=== PATIENT | male | born 1950 | race American Indian/Alaskan Native ===

== ENCOUNTER 2018-10-08 14:31 | Emergency (ER) | payer OTHER ==
[2018-10-08 14:35] VITALS: BMI 23.6
[2018-10-08] MEDS ORDERED: Sodium Chloride 0.9% 1,000 ML IV ONE (14:53)
[2018-10-08] MEDS ORDERED: Sodium Chloride 0.9% 1,000 ML ONE (15:00)
--- NOTE | 2018-10-08 15:03 | C.PDOC ---
History Of Present Illness 68 year old male presents to the ED complaining of watery diarrhea and unintentional weight loss for 2 months. Reports it might be because of decreased PO intake because he noted a decreased in appetite. Also notes occasional "gassy abdominal pain". Denies current abdominal pain. Also denies any chest pain, nausea, vomiting, shortness of breath, dysuria or hematuria. Denies any past medical history. Reports he has not seen a doctor in 40 years. Time Seen by Provider: 10/08/18 14:45 Chief Complaint (Nursing): GI Problem History Per: Patient History/Exam Limitations: no limitations Onset/Duration Of Symptoms: Days Current Symptoms Are (Timing): Still Present Past Medical History Reviewed: Historical Data, Nursing Documentation, Vital Signs Vital Signs: Last Vital Signs Temp 98.8 F 10/08/18 14:35 Pulse 122 H 10/08/18 14:35 Resp 20 10/08/18 14:35 BP 172/95 H 10/08/18 14:35 Pulse Ox 100 10/08/18 14:35 Primary Care Provider: FAMILY PROVIDER,NO - Medical History PMH: No Chronic Diseases Surgical History: No Surg Hx Family History: States: No Known Family Hx - Social History Hx Alcohol Use: No Hx Substance Use: No - Immunization History Hx Tetanus Toxoid Vaccination: No Hx Influenza Vaccination: No Hx Pneumococcal Vaccination: No Review Of Systems Constitutional: Positive for: Weight loss. Negative for: Fever, Chills Cardiovascular: Negative for: Chest Pain Respiratory: Negative for: Shortness of Breath Gastrointestinal: Positive for: Abdominal Pain, Diarrhea. Negative for: Nausea, Vomiting Genitourinary: Negative for: Dysuria, Hematuria Physical Exam - Physical Exam Appears: Non-toxic, No Acute Distress, Other (looks underweight ) Skin: Warm, Dry, No Rash Head: Normacephalic Eye(s): bilateral: PERRL, EOMI Oral Mucosa: Moist Neck: Supple Chest: Symmetrical Cardiovascular: Rhythm Regular, Other (tachycardic ) Respiratory: No Rales, No Rhonchi, No Wheezing, Other (CTA B/L) Gastrointestinal/Abdominal: Soft, No Tenderness Neurological/Psych: Oriented x3, Normal Speech Gait: Steady ED Course And Treatment - Laboratory Results Result Diagrams: 10/08/18 15:25 10/08/18 15:25 O2 Sat by Pulse Oximetry: 100 (RA) Pulse Ox Interpretation: Normal - CT Scan/US CT ABD/PELVIS Other Rad Studies (CT/US): Read By Radiologist, Radiology Report Reviewed CT/US Interpretation: Name:CHELSEA GRIFFIN Exam Date:October 08, 2018 5:22:33 PM EDT. Modality Type:CT. Description:CT - ABDOMEN AND PELVIS WITH CORONAL AND SAGITTAL MPRS. Gender:M Laterality:Not applicable. :49 Referring Physician:MISBAH CARLOS MD. EXAM: CT Abdomen and Pelvis with IV contrast. CLINICAL HISTORY: Abd pain, weight loss, diarrhea and r/o malignancy. TECHNIQUE: Axial computed tomography images of the abdomen and pelvis with oral and intravenous contrast. 0.00 mGy-cm. CONTRA ST: With; OMNI 240 & 100MLS VISI 320. COMPARISON: None provided. FINDINGS: LUNG BASES: The lung bases appear clear. No pleural effusions are seen. LIVER: Several hypodense hepatic lesions are present in the right lobe, the largest measures 0.8 cm, may represent small cysts versus hemangiomas. GALLBLADDER AND BILE DUCTS: The gallbladder appears within normal limits. No radioopaque galls tones are seen. No biliary ductal dilatation is evident. PANCREAS: Unremarkable. SPLEEN: Unremarkable. ADRENAL GLANDS: Unremarkable. KIDNEYS, URETERS, AND BLADDER: There is an apparent invasion of the mass into urinary bladder with colovesicular fistula noted. STOMACH AND BOWEL: 11 x 8 x 6 cm complex mass is noted in the sigmoid colon compatible with malignancy, it demonstrates solid and cystic/necrotic elements. APPENDIX: No evidence of acute appendicitis on CT examination. PERITONEUM: No free fluid. No free air. LYMPH NODES: No lymphadenopathy is evident. REPRODUCTIVE: Unremarkable as visualized. VASCULATURE: No evidence of abdominal aortic aneurysm. BONES: No aggressive appearing osseous lesion. No acute osseous pathology evident. IMPRESSION: 1. Several hypodense hepatic lesions are present in the right lobe, the largest measures 0.8 cm, may represent small cysts versus hemangiomas. 2. 11 x 8 x 6 cm complex mass is noted in the sigmoid colon compatible with malignancy, it demonstrates solid and cystic/necrotic elements. 3. There is an apparent invasion of the mass into urinary bladder with colovesicular fistula noted. . Electronically signed on October 08, 2018 6:53:51 PM EDT by: Tato Gilliland M.D., M.B.A., Certified By [employer]. Fellowship Trained MRI and CT Specialist. Progress Note: CT abd/pel, EKG, and CXR ordered. Patient treated with IV fluids. Blood and urine collected and sent to the lab for analysis. Against Medical Advice - AMA Patient Left Against Medical Advice: The patient declines admission to the hospital and wishes to leave the Emergency Department. This action is against my medical advice. This decision was made with informed refusal. The patient was told that admission to the hospital is necessary. Explanation of the reasons why were discussed. The risks of leaving were explained to the patient and include, but are not limited to, worsening of known or currently unknown conditions, permanent disability and from undiagnosed or untreated conditions. The patient has the capacity to make this informed decision and understands my explanation of the current medical problem and risks of leaving. The patient voluntarily accepts these risks and signed an AMA form documenting our conversation. The patient was given the opportunity to ask questions and reconsider. The patient was encouraged to return to the Emergency Department at any time for further care. Disposition Counseled Patient/Family Regarding: Studies Performed, Diagnosis, Need For Followup, Rx Given - Disposition Referrals: at [facility] [Outside] Disposition: HOME/ ROUTINE Disposition Time: 19:15 Condition: STABLE Additional Instructions: RETURN TO ER FOR ADMISSION FOR COLON MASS Prescriptions: Ciprofloxacin [Cipro] 1 tab PO BID #14 tab Instructions: Leaving Against Medical Advice, Urinary Tract Infection, Adult (DC) Forms: [facility] (Sudanese), General Discharge Instructions, (AMA) Informed Refusal Print Language: GRENADIAN - Clinical Impression Clinical Impression: Mass of colon, Left against medical advice, UTI (urinary tract infection) - Scribe Statement The provider has reviewed the documentation as recorded by the Scribe Sindy Aguilar All medical record entries made by the Scribe were at my direction and personally dictated by me. I have reviewed the chart and agree that the record accurately reflects my personal performance of the history, physical exam, medical decision making, and the department course for this patient. I have also personally directed, reviewed, and agree with the discharge instructions and disposition.
[2018-10-08] MEDS ORDERED: Iohexol 240 (50 ml) PO STA (15:23)
[2018-10-08] MEDS ORDERED: Iohexol 240 (50 ml) ONE (15:28)
[2018-10-08 15:33] LABS: BASO # 0.1 K/uL (0.0-0.2); BASO % 0.5 % (0.0-2.0); EOS # 0.5 K/uL (0.0-0.7); EOS % 2.9 % (0.0-4.0); HEMOGLOBIN 10.3 g/dL (12.0-18.0); LYMPH # 3.7 K/uL (1.0-4.3); MEAN CELL VOLUME 72.3 fL (80.0-94.0); MEAN CORPUSCULAR HEMOGLOBIN 22.8 pg (27.0-31.0); MEAN CORPUSCULAR HGB CONC 31.6 g/dL (33.0-37.0); MEAN PLATELET VOLUME 7.8 fL (7.2-11.7); MONO # 1.6 K/uL (0.0-0.8); MONO % 10.3 % (0.0-10.0); NEUT # 9.7 K/uL (1.8-7.0); NEUT % 62.3 % (50.0-75.0); RBC 4.53 Mil/uL (4.40-5.90); RED CELL DISTRIBUTION WIDTH 16.5 % (11.5-14.5); WHITE BLOOD COUNT 15.6 K/uL (4.8-10.8)
[2018-10-08 15:42] LABS: SQUAMOUS EPITHIAL 1 /hpf (0-5); URINE BACTERIA MANY (<OCC); URINE BILIRUBIN NEGATIVE (NEGATIVE); URINE BLOOD 2+ (NEGATIVE); URINE CLARITY Hazy (Clear); URINE COLOR Yellow (YELLOW); URINE GLUCOSE (UA) NORMAL (Normal); URINE LEUKOCYTE ESTERASE 3+ Leu/uL (Negative); URINE PROTEIN 1+ mg/dL (NEGATIVE); URINE UROBILINOGEN NORMAL mg/dL (0.2-1.0); WBC CLUMPS MOD /hpf
--- NOTE | 2018-10-08 15:50 | RAD ---
HISTORY: WEIGHT LOSS COMPARISON: None available. TECHNIQUE: Chest, one view. FINDINGS: LUNGS: No focal consolidation. 6 mm probable calcified nodule, left mid lung zone. Please note that chest x-ray has limited sensitivity for the detection of pulmonary masses. PLEURA: No significant pleural effusion identified. No definite pneumothorax . CARDIOVASCULAR: The cardiomediastinal silhouette appears within normal limits of size. No significant atherosclerotic calcification present. OSSEOUS STRUCTURES: No acute osseous abnormality identified. VISUALIZED UPPER ABDOMEN: Unremarkable. OTHER FINDINGS: None. IMPRESSION: No acute findings identified. 6 mm probable calcified nodule, left mid lung zone.
[2018-10-08 15:55] LABS: ALB/GLOB RATIO 0.8 (1.0-2.1); ALBUMIN 3.7 g/dL (3.5-5.0); ALT/SGPT 7 U/L (21-72); AST/SGOT 19 U/L (17-59); BLOOD UREA NITROGEN 10 mg/dL (9-20); CALCIUM 9.4 mg/dl (8.6-10.4); GFR NON-AFRICAN AMERICAN > 60; LIPASE 35 U/L (23-300)
[2018-10-08] MEDS ORDERED: Iodixanol 320 MG/ML 100 ML BOTTLE IV ONE (17:19)
[2018-10-08 19:28] VITALS: BP 146/71; PULSE 88; RESP 18; TEMP 98.3; O2SAT 98
--- NOTE | 2018-10-09 09:32 | CT ---
Date of service: 10/08/2018 PROCEDURE: CT Abdomen and Pelvis with contrast HISTORY: ABD PAIN, WEIGHT LOSS, DIARRHEA, R/O MALIGNANCY COMPARISON: None. TECHNIQUE: Contrast dose: Radiation dose: Total exam DLP = 582.85 mGy-cm. This CT exam was performed using one or more of the following dose reduction techniques: Automated exposure control, adjustment of the mA and/or kV according to patient size, and/or use of iterative reconstruction technique. FINDINGS: LOWER THORAX: Unremarkable. LIVER: Unremarkable. No gross lesion or ductal dilatation. GALLBLADDER AND BILE DUCTS: Unremarkable. PANCREAS: Unremarkable. No gross lesion or ductal dilatation. SPLEEN: Unremarkable. ADRENALS: Unremarkable. No mass. KIDNEYS AND URETERS: Unremarkable. No hydronephrosis. No solid mass. VASCULATURE: Unremarkable. No aortic aneurysm. No aortic atherosclerotic calcification or mural plaque present. BOWEL: 11 x 8 x 6 mm complex cystic mass in sigmoid colon compatible malignancy., demonstrating solid and cystic chronic components. Associated invasion of the urinary bladder with suspicion for a colovesical fistula. APPENDIX: Normal appendix. PERITONEUM: Unremarkable. No free fluid. No free air. LYMPH NODES: Unremarkable. No enlarged lymph nodes. BLADDER: Unremarkable. REPRODUCTIVE: Unremarkable. BONES: No acute fracture. OTHER FINDINGS: None. IMPRESSION: 11 x 8 x 6 mm complex cystic mass in sigmoid colon compatible malignancy., demonstrating solid and cystic chronic components. Associated invasion of the urinary bladder with suspicion for a colovesical fistula.
--- NOTE | 2018-10-09 15:30 | CARD ---
APPROVED REPORT Date of service: 10/08/2018 EKG Measurement Heart [id number] <Conclusion> Sinus tachycardia Possible Left atrial enlargement Left ventricular hypertrophy Abnormal ECG
== END 2018-10-08 19:28 | disposition left against medical advice (07) ==
LOC: C.ER 14:31
DX: N39.0 Urinary tract infection, site not specified (principal); K63.9 Disease of intestine, unspecified
CPT/HCPCS: 71045; 74177; 80053; 81001; 82948; 83690; 85025; 93005; 96360; 99285; J7030; Q9966; Q9967

== ENCOUNTER 2018-10-09 07:51 | Inpatient (IN) | payer MEDICAID, OTHER ==
[2018-10-09 07:51] VITALS: BMI 23.6
--- NOTE | 2018-10-09 07:59 | C.PDOC ---
History Of Present Illness 68 y/o male, with recent diagnosis of UTI and abdominal mass, presents to ED with abdominal pain and request for admission. He notes of watery diarrhea and unintentional weight loss x2 months, as well as gassy abdominal pain, which he describes as cramping. Notes he was seen here yesterday and was diagnosed with abdominal mass and UTI. Patient signed AMA at that time because he was scared and didnt want to go to a hospital, but he returns today for admission. He notes taking 500 mg of cipro yesterday for his UTI and denies any back pain, fever, chills, or night sweats. He denies current abdominal pain. Time Seen by Provider: 10/09/18 07:59 Chief Complaint (Nursing): Abdominal Pain History Per: Patient History/Exam Limitations: no limitations Onset/Duration Of Symptoms: Days Current Symptoms Are (Timing): Still Present Past Medical History Reviewed: Historical Data, Nursing Documentation, Vital Signs Vital Signs: Last Vital Signs Temp 98.9 F 10/09/18 07:59 Pulse 116 H 10/09/18 07:59 Resp 17 10/09/18 07:59 BP 133/85 10/09/18 07:59 Pulse Ox 100 10/09/18 07:59 Family History: States: No Known Family Hx - Social History Hx Alcohol Use: No Hx Substance Use: No - Immunization History Hx Tetanus Toxoid Vaccination: No Hx Influenza Vaccination: No Hx Pneumococcal Vaccination: No Review Of Systems Except As Marked, All Systems Reviewed And Found Negative. Constitutional: Negative for: Fever, Chills, Sweats Gastrointestinal: Negative for: Nausea, Vomiting, Abdominal Pain Musculoskeletal: Negative for: Back Pain Physical Exam - Physical Exam Appears: Non-toxic, No Acute Distress Skin: Warm, Dry Head: Normacephalic Eye(s): bilateral: Normal Inspection Oral Mucosa: Moist Neck: Supple Cardiovascular: Rhythm Regular (tachycardic), No Murmur Respiratory: Normal Breath Sounds Gastrointestinal/Abdominal: Soft, No Tenderness, No Guarding, No Rebound Back: No CVA Tenderness Extremity: Bilateral: Atraumatic, Normal ROM Neurological/Psych: Oriented x3, Normal Speech ED Course And Treatment - Laboratory Results Result Diagrams: 10/09/18 08:40 10/09/18 08:40 O2 Sat by Pulse Oximetry: 100 (RA) Pulse Ox Interpretation: Normal Medical Decision Making Medical Decision Makin68 y/o male, with recent diagnosis of UTI and abdominal mass, presents to ED with abdominal pain and request for admission. Pt notes taking abx yesterday, but not today. No CVAT or midline tenderness on exam. No fall or trauma since previous visit here. No dark or bloody stool or n/v. Plan: --VBG --Labs --Blood culture --Cipro 0900 WBC improved appreciate consult w/ Dr. Singh: to admit to his service: requests outside production inspector GI pt in [facility], placed consult to GI Pt self pay: admitted to Dr. Calle service: requests stool study pt in [facility], agreeable to plan Disposition - Disposition Disposition Time: 08:59 Condition: STABLE - Clinical Impression Clinical Impression: UTI (urinary tract infection), Abdominal mass - Scribe Statement The provider has reviewed the documentation as recorded by the Emiribana Blackwell Provider Attestation: All medical record entries made by the Emiribana were at my direction and personally dictated by me. I have reviewed the chart and agree that the record accurately reflects my personal performance of the history, physical exam, medical decision making, and the department course for this patient. I have also personally directed, reviewed, and agree with the discharge instructions and disposition.
[2018-10-09] MEDS ORDERED: Ciprofloxacin 400mg/200ml D5W 400 MG/200 ML BAG IVPB STA (08:13)
[2018-10-09] MEDS ORDERED: Ciprofloxacin 400mg/200ml D5W 400 MG/200 ML BAG IVPB ONE (08:43)
[2018-10-09 08:50] LABS: BASO # 0.1 K/uL (0.0-0.2); BASO % 0.4 % (0.0-2.0); EOS # 0.4 K/uL (0.0-0.7); EOS % 3.6 % (0.0-4.0); HEMOGLOBIN 9.8 g/dL (12.0-18.0); LYMPH # 2.6 K/uL (1.0-4.3); LYMPH % 21.6 % (20.0-40.0); MEAN CELL VOLUME 72.1 fL (80.0-94.0); MEAN CORPUSCULAR HGB CONC 31.9 g/dL (33.0-37.0); MEAN PLATELET VOLUME 7.9 fL (7.2-11.7); MONO # 0.9 K/uL (0.0-0.8); MONO % 7.2 % (0.0-10.0); NEUT # 8.1 K/uL (1.8-7.0); NEUT % 67.2 % (50.0-75.0); RBC 4.26 Mil/uL (4.40-5.90); RED CELL DISTRIBUTION WIDTH 17.1 % (11.5-14.5); WHITE BLOOD COUNT 12.1 K/uL (4.8-10.8)
[2018-10-09 08:55] LABS: VENOUS BLOOD GAS BASE EXCESS 1.9 mmol/L (0.0-2.0); VENOUS BLOOD GAS PCO2 50 mmHg (40-60); VENOUS BLOOD GAS PO2 23 mm/Hg (30-55); VENOUS BLOOD PH 7.36 (7.32-7.43)
[2018-10-09 08:58] LABS: INR 1.2; PARTIAL THROMBOPLASTIN TIME 28.5 SECONDS (21-34); PROTHROMBIN TIME 13.4 SECONDS (9.7-12.2)
[2018-10-09] MEDS ORDERED: Sodium Chloride 0.9% 1,000 ML IV SCH (09:00)
[2018-10-09 09:09] LABS: ALB/GLOB RATIO 0.9 (1.0-2.1); ALBUMIN 3.4 g/dL (3.5-5.0); ALT/SGPT 14 U/L (21-72); AST/SGOT 20 U/L (17-59); BLOOD UREA NITROGEN 11 mg/dL (9-20); CALCIUM 9.2 mg/dl (8.6-10.4); GFR NON-AFRICAN AMERICAN > 60
--- NOTE | 2018-10-09 12:12 | CP.PCM.HP ---
<Joel Ross - Last Filed: 10/09/18 15:51> History of Present Illness - History of Present Illness History of Present Illness: PGY-1 History and Physical [address] Calle Patient is a 68 year old male with no significan PMHx who presents with chief complaints of abdominal pain, diarrhea, and urinary frequency and urgency. Patient states symptoms first began about 6 months ago when he noticed abdominal pain and increasing frequency of watery diarrhea. During this time he has also noticed increased generalized weakness. Patient states he began to show concern 2 months ago when he began losing weight unexpectedly as well (unsure how much weight, just noticed visually). Patient also states he has had foul-smelling urine which is sometimes brown and sometimes with blood as well. Patient has had increased urinary urgency and frequency, as well as difficulty emptying his bladder, and states that he sometimes cannot make it to the bathroom on time. Patient denies blurry vision, focal weakness, dysuria, flank pain, numbness, or tingling. PMHx: No known. Has not seen a doctor in 20+ years PSHx: No surgeries Allergies: NKA Medications: No home meds Family hx: No known family hx Social history: Never smoked. Denies alcohol or drug use. 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 Originally from [place]. Hospitalizations: No recent hospitalizations. Present on Admission - Present on Admission Any Indicators Present on Admission: No Review of Systems - Constitutional Constitutional: Weight Loss, Weakness. absent: Chills, Fever - EENT Eyes: absent: Blurred Vision Ears: absent: Disequilibrium, Dizziness - Cardiovascular Cardiovascular: absent: Chest Pain, Dyspnea, Palpitations, Pedal Edema - Gastrointestinal Gastrointestinal: Abdominal Pain, Bloating, Change in Stool Character, Diarrhea, Dyspepsia, Loose Stools. absent: Coffee Ground Emesis, Nausea, Vomiting Additional comments: BRBPR - Genitourinary Genitourinary: Change in Urinary Stream, Urinary Frequency, Urinary Urgency. absent: Dysuria, Flank Pain Additional comments: Foul smelling urine, sometimes brown, and sometimes with blood - Musculoskeletal Musculoskeletal: absent: Back Pain, Neck Pain - Psychiatric Psychiatric: absent: Anxiety, Depression - Endocrine Endocrine: Fatigue, Heat Intolorance (Patient states passing out from heat. This has started reoccuring, though happened also when he was younger) Past Patient History - Past Social History Smoking Status: Never Smoked - PSYCHIATRIC Hx Substance Use: No - SURGICAL HISTORY Hx Surgeries: No - ANESTHESIA Hx Anesthesia: No Meds Allergies/Adverse Reactions: Allergies Allergy/AdvReac Type Severity Reaction Status Date / Time No Known Allergies Allergy Verified 10/09/18 08:13 Physical Exam - Constitutional Appears: Non-toxic, No Acute Distress - Head Exam Head Exam: ATRAUMATIC, NORMAL INSPECTION - Eye Exam Eye Exam: Normal appearance - ENT Exam ENT Exam: Mucous Membranes Moist - Respiratory Exam Respiratory Exam: Clear to Auscultation Bilateral, NORMAL BREATHING PATTERN. absent: Rhonchi, Wheezes - Cardiovascular Exam Cardiovascular Exam: REGULAR RHYTHM, +S1, +S2 - GI/Abdominal Exam GI & Abdominal Exam: Distended (mild distention), Normal Bowel Sounds, Soft, Tenderness (suprapubic tenderness). absent: Guarding, Rebound - Exam Exam: Testicular Tenderness. absent: Uretheral Discharge - Extremities Exam Extremities exam: Positive for: normal inspection. Negative for: pedal edema, tenderness - Neurological Exam Neurological exam: Alert, CN II-XII Intact, Oriented x3 - Psychiatric Exam Psychiatric exam: Normal Affect, Normal Mood - Skin Skin Exam: Dry, Intact Results - Vital Signs Recent Vital Signs: Last Vital Signs Temp 98.9 F 10/09/18 07:59 Pulse 116 H 10/09/18 07:59 Resp 17 10/09/18 07:59 BP 133/85 10/09/18 07:59 Pulse Ox 100 10/09/18 10:28 - Labs Result Diagrams: 10/09/18 08:40 10/09/18 08:40 Labs: Laboratory Results - last 24 hr 10/09/18 10/09/18 10/09/18 08:40 08:40 08:40 WBC 12.1 H RBC 4.26 L Hgb 9.8 L Hct 30.7 L MCV 72.1 L MCH 23.0 L MCHC 31.9 L RDW 17.1 H Plt Count 614 H MPV 7.9 Neut % (Auto) 67.2 Lymph % (Auto) 21.6 [place] % (Auto) 7.2 Eos % (Auto) 3.6 Baso % (Auto) 0.4 Neut # (Auto) 8.1 H Lymph # (Auto) 2.6 [place] # (Auto) 0.9 H Eos # (Auto) 0.4 Baso # (Auto) 0.1 PT 13.4 H INR 1.2 APTT 28.5 pO2 VBG pH VBG pCO2 VBG HCO3 VBG Total CO2 VBG O2 Sat (Calc) VBG Base Excess VBG Potassium Glucose Lactate Sodium 136 Potassium 3.4 L Chloride 96 L Carbon Dioxide 31 H Anion Gap 12 BUN 11 Creatinine 1.0 Est GFR ( Amer) > 60 Est GFR (Non-Af Amer) > 60 Random Glucose 184 H D Calcium 9.2 Total Bilirubin 0.4 AST 20 ALT 14 L D Alkaline Phosphatase 53 Total Protein 7.1 Albumin 3.4 L Globulin 3.7 Albumin/Globulin Ratio 0.9 L Venous Blood Potassium Blood Type Antibody Screen 10/09/18 10/09/18 08:40 08:50 WBC RBC Hgb Hct MCV MCH MCHC RDW Plt Count MPV Neut % (Auto) Lymph % (Auto) [place] % (Auto) Eos % (Auto) Baso % (Auto) Neut # (Auto) Lymph # (Auto) [place] # (Auto) Eos # (Auto) Baso # (Auto) PT INR APTT pO2 23 L VBG pH 7.36 VBG pCO2 50 VBG HCO3 24.8 VBG Total CO2 29.7 H VBG O2 Sat (Calc) 24.1 L VBG Base Excess 1.9 VBG Potassium 3.2 L Glucose 179 H Lactate 1.8 Sodium 136.0 Potassium Chloride 103.0 Carbon Dioxide Anion Gap BUN Creatinine Est GFR ( Amer) Est GFR (Non-Af Amer) Random Glucose Calcium Total Bilirubin AST ALT Alkaline Phosphatase Total Protein Albumin Globulin Albumin/Globulin Ratio Venous Blood Potassium 3.2 L Blood Type A POSITIVE Antibody Screen Negative Assessment & Plan - Assessment and Plan (Free Text) Assessment: 68 year old male p/w CC abdominal pain, diarrhea, urinary frequency and urgency, and foul-smelling urine, found to have 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 Associated invasion of the urinary bladder with suspicion for a colovesical fistula -Surgery consulted, Dr. Lozada - f/u Urology consulted, Dr. Jabari Charles - f/u Abx -Zosyn 3.375 IV Q6 -Flagyl 500 mg IV Q8 Leukocytosis, SIRS -Leukocytosis, tachycardia -Blood cultures, stool cultures, urine cultures - f/u -Stool studies (stool leukocytes, fecal occult, cultures) - f/u -VBG lactate - f/u Abx -Zosyn 3.375 IV Q6 -Flagyl 500 mg IV Q8 -LR @ 125cc/hr Anemia -CBC 9.7, down from 10.2 on ED visit 10/08 -Microcytic, possible 2/2 GI bleed from colonic mass -Reticulocyte count, iron, TIBC, ferritin - f/u -Monitor H and H Meds -Protonix 40 mg IV daily BRBPR -GI consulted, Dr. Kuhn - f/u -F/u heme occult Hypokalemia -K-dur 40 PO once -Monitor CMP -Mag level routine Dysuria, hematuria 2/2 fistula Urology consulted, Dr. Jabari Charles - f/u Abx -Zosyn 3.375 IV Q6 -Flagyl 500 mg IV Q8 Pulmonary Nodule on CXR CXR 10/09: No acute findings identified. 6 mm probable calcified nodule, left mid lung zone. -LR @ 125cc/hr PPx -DVT ppx c/i 2/2 anemia, GIB -Protonix 40 IV Q12 Asssessment and plan d/w Dr. Alva Ross, PGY-1 <Libby Calle V - Last Filed: 10/10/18 00:04> Results - Vital Signs Recent Vital Signs: Last Vital Signs Temp 98.9 F 10/09/18 15:00 Pulse 96 H 10/09/18 15:00 Resp 20 10/09/18 15:00 BP 137/76 10/09/18 15:00 Pulse Ox 100 10/09/18 16:44 - Labs Result Diagrams: 10/09/18 08:40 10/09/18 08:40 Labs: Laboratory Results - last 24 hr 10/09/18 10/09/18 10/09/18 08:40 08:40 08:40 WBC 12.1 H RBC 4.26 L Hgb 9.8 L Hct 30.7 L MCV 72.1 L MCH 23.0 L MCHC 31.9 L RDW 17.1 H Plt Count 614 H MPV 7.9 Neut % (Auto) 67.2 Lymph % (Auto) 21.6 [place] % (Auto) 7.2 Eos % (Auto) 3.6 Baso % (Auto) 0.4 Neut # (Auto) 8.1 H Lymph # (Auto) 2.6 [place] # (Auto) 0.9 H Eos # (Auto) 0.4 Baso # (Auto) 0.1 Retic Count PT 13.4 H INR 1.2 APTT 28.5 pO2 VBG pH VBG pCO2 VBG HCO3 VBG Total CO2 VBG O2 Sat (Calc) VBG Base Excess VBG Potassium Glucose Lactate Sodium 136 Potassium 3.4 L Chloride 96 L Carbon Dioxide 31 H Anion Gap 12 BUN 11 Creatinine 1.0 Est GFR ( Amer) > 60 Est GFR (Non-Af Amer) > 60 Random Glucose 184 H D Calcium 9.2 Phosphorus Magnesium Iron TIBC % Saturation Ferritin Total Bilirubin 0.4 AST 20 ALT 14 L D Alkaline Phosphatase 53 Total Protein 7.1 Albumin 3.4 L Globulin 3.7 Albumin/Globulin Ratio 0.9 L Procalcitonin Venous Blood Potassium Urine Color Urine Clarity Urine pH Ur Specific [place] Urine Protein Urine Glucose (UA) Urine Ketones Urine Blood Urine Nitrate Urine Bilirubin Urine Urobilinogen Ur Leukocyte Esterase Urine WBC (Auto) Urine RBC (Auto) Urine Bacteria Hyaline Casts Stool Occult Blood Stool Leukocytes, Qual Blood Type Antibody Screen 10/09/18 10/09/18 10/09/18 08:40 08:50 13:19 WBC RBC Hgb Hct MCV MCH MCHC RDW Plt Count MPV Neut % (Auto) Lymph % (Auto) [place] % (Auto) Eos % (Auto) Baso % (Auto) Neut # (Auto) Lymph # (Auto) [place] # (Auto) Eos # (Auto) Baso # (Auto) Retic Count 1.2 PT INR APTT pO2 23 L VBG pH 7.36 VBG pCO2 50 VBG HCO3 24.8 VBG Total CO2 29.7 H VBG O2 Sat (Calc) 24.1 L VBG Base Excess 1.9 VBG Potassium 3.2 L Glucose 179 H Lactate 1.8 Sodium 136.0 Potassium Chloride 103.0 Carbon Dioxide Anion Gap BUN Creatinine Est GFR ( Amer) Est GFR (Non-Af Amer) Random Glucose Calcium Phosphorus Magnesium Iron TIBC % Saturation Ferritin Total Bilirubin AST ALT Alkaline Phosphatase Total Protein Albumin Globulin Albumin/Globulin Ratio Procalcitonin Venous Blood Potassium 3.2 L Urine Color Urine Clarity Urine pH Ur Specific [place] Urine Protein Urine Glucose (UA) Urine Ketones Urine Blood Urine Nitrate Urine Bilirubin Urine Urobilinogen Ur Leukocyte Esterase Urine WBC (Auto) Urine RBC (Auto) Urine Bacteria Hyaline Casts Stool Occult Blood Stool Leukocytes, Qual Blood Type A POSITIVE Antibody Screen Negative 10/09/18 10/09/18 10/09/18 14:01 14:01 14:01 WBC RBC Hgb Hct MCV MCH MCHC RDW Plt Count MPV Neut % (Auto) Lymph % (Auto) [place] % (Auto) Eos % (Auto) Baso % (Auto) Neut # (Auto) Lymph # (Auto) [place] # (Auto) Eos # (Auto) Baso # (Auto) Retic Count PT INR APTT pO2 VBG pH VBG pCO2 VBG HCO3 VBG Total CO2 VBG O2 Sat (Calc) VBG Base Excess VBG Potassium Glucose Lactate Sodium Potassium Chloride Carbon Dioxide Anion Gap BUN Creatinine Est GFR ( Amer) Est GFR (Non-Af Amer) Random Glucose Calcium Phosphorus 3.9 Magnesium 1.9 Iron 18 L TIBC 212 L % Saturation 8 L Ferritin 34.8 Total Bilirubin AST ALT Alkaline Phosphatase Total Protein Albumin Globulin Albumin/Globulin Ratio Procalcitonin Venous Blood Potassium Urine Color Urine Clarity Urine pH Ur Specific [place] Urine Protein Urine Glucose (UA) Urine Ketones Urine Blood Urine Nitrate Urine Bilirubin Urine Urobilinogen Ur Leukocyte Esterase Urine WBC (Auto) Urine RBC (Auto) Urine Bacteria Hyaline Casts Stool Occult Blood Stool Leukocytes, Qual Blood Type Antibody Screen 10/09/18 10/09/18 10/09/18 16:26 16:29 22:59 WBC RBC Hgb Hct MCV MCH MCHC RDW Plt Count MPV Neut % (Auto) Lymph % (Auto) [place] % (Auto) Eos % (Auto) Baso % (Auto) Neut # (Auto) Lymph # (Auto) [place] # (Auto) Eos # (Auto) Baso # (Auto) Retic Count PT INR APTT pO2 VBG pH VBG pCO2 VBG HCO3 VBG Total CO2 VBG O2 Sat (Calc) VBG Base Excess VBG Potassium Glucose Lactate Sodium Potassium Chloride Carbon Dioxide Anion Gap BUN Creatinine Est GFR ( Amer) Est GFR (Non-Af Amer) Random Glucose Calcium Phosphorus Magnesium Iron TIBC % Saturation Ferritin Total Bilirubin AST ALT Alkaline Phosphatase Total Protein Albumin Globulin Albumin/Globulin Ratio Procalcitonin < 0.05 L Venous Blood Potassium Urine Color Yellow Urine Clarity Hazy Urine pH 6.0 Ur Specific [place] 1.014 Urine Protein 1+ H Urine Glucose (UA) Normal Urine Ketones Negative Urine Blood 2+ H Urine Nitrate Negative Urine Bilirubin Negative Urine Urobilinogen Normal Ur Leukocyte Esterase 2+ H Urine WBC (Auto) 228 H Urine RBC (Auto) 31 H Urine Bacteria Few H Hyaline Casts 0-2 Stool Occult Blood Positive H Stool Leukocytes, Qual Negative Blood Type Antibody Screen Attending/Attestation - Attestation I have personally seen and examined this patient.: Yes I have fully participated in the care of the patient.: Yes I have reviewed all pertinent clinical information: Yes Notes (Text): This is a 68-year-old male with no prior medical history was seen in primary care physician for over 20+ years who comes in following 6-month history of associated watery diarrhea abdominal pain in 1 to 2 months of unintentional weight loss associated with bright red blood per rectum as well as associated dysuria. Patient has been without insurance. Patient noted that abdominal pain is characterized as gas pains and will trial to move from the right lower and left lower quadrants he thought this pain would go away on its own he came to the emergency room yesterday because of weight loss which scared him patient left AMA from the emergency room on Tuesday and came back today. In terms of CAT scan from yesterday showing sigmoid mass invading the bladder concern for a colovesical fistula. Per review history patient denies any family history of colon cancer he personally has never had a colonoscopy his main relatives are living with an internal intact he has 2 adult children college-age who presents with a friend. He himself does not want to entertain that this is cancer given that it could be more than diagnoses attributing to why he had the sudden abdominal pain and/or fistula formation. Patient on exam awake alert oriented x3 S1-S2 regular rate lungs are clear to auscultation abdomen is soft negative Bernal sign however he does have tenderne ss over the left lower and right lower quadrant he is mildly distended as well as positive suprapubic pain. My exam he does allow me to do a genitourinary exam noted there is no cellulitis there is no pain over the mons pubis he is uncircumcised there is no discharge from the tremulous however over the scrotum or the left testicle there is significant pain on palpation compared to the right testicle. Legs appear benign no cyanosis no clubbing or edema. Patient is quite hesitant about me performing a rectal. I did indicate to him if he has a bloody bowel movement please show it to the nurse however members of our team. We will continue IV antibiotics to cover for both and GI infection source given concern for fistula and suprapubic pain we will follow-up blood culture urine cultures and procalcitonin. Patient is not clinically in shock but does meet sirs criteria for urinary tract infection at least We will obtain both general surgery eval, neurology eval and GI consult and hem e-onc eval. I did indicate to the patient that many consultants will be involved in his case we will try to avoid confusion if possible. Client discussed admitting orders with resident at time of admission. Assessment and plan. 1. Fistula and/or sigmoid mass Noted CT results in the ED admission from yesterday the General surgery, GI, urology consult obtain Monitor stool studies as well as occult blood 2. Left testicular pain Order for testicular ultrasound 3. Suprapubic pain Abdominal pain Noted CT findings in the ED yesterday Follow-up urine studies Patient did receive first dose of Cipro in the ED today. Changed antibiotics for Zosyn and Flagyl 4. Leukocytosis Check cultures 5. Anemia Check a reticulocyte count, ferritin, iron studies and occult blood Protonix 40 IV every 12h 6. Prophylactic measure GI prophylaxis Hold chemical anticoagulation in light of occult positive blood 7. Pulmonary nodule noted on CT chest x-ray will need follow-up as outpatient
[2018-10-09] MEDS ORDERED: Dextrose 5%/Lactated Ringer's 1,000 ML IV SCH (13:45)
[2018-10-09] MEDS ORDERED: Piperacillin/Tazobact 3.375 GM in Sodium Chloride 100 ML IVPB SCH ×2 (14:00→14:30)
[2018-10-09] MEDS ORDERED: Piperacillin/Tazobact 3.375 gm 100 ML IVPB ONE ×2 (14:13→14:29)
--- NOTE | 2018-10-09 14:14 | CP.PCM.CON ---
<Yehuda Cha - Last Filed: 10/09/18 18:41> History of Present Illness - History of Present Illness History of Present Illness: General Surgery Consult for Dr. Lozada Reason for consult: suspected sigmoid colon mass and colovesicular fistula 68 M with who denies significant PMH presents with complaint of abdominal pain, diarrhea, and urinary frequency and urgency. Patient states symptoms first began about 6 months ago when he noticed abdominal pain and increasing frequency of watery diarrhea. Patient states for 2 months he has been losing weight unexpectedly, ~20-25 lbs. He admits to foul-smelling urine, urinary urgency/frequency, and difficulty emptying his bladder. For the same time frame, he has been experiencing urinary and fecal incontinence. He desribes pain as intermittent and cramping located in suprapubic area. Denies any specific aggravating or alleviating factors. Patient has no other complaints at this time. 12 point ROS was performed and found to be negative unless stated above. PMH: denies PSH: denies All: NKDA Social: Never smoked. Denies alcohol or drug use. 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 Review of Systems - Review of Systems All systems: reviewed and no additional remarkable complaints except (as per HPI) Past Patient History - Past Social History Smoking Status: Never Smoked - PSYCHIATRIC Hx Substance Use: No - SURGICAL HISTORY Hx Surgeries: No - ANESTHESIA Hx Anesthesia: No Meds Allergies/Adverse Reactions: Allergies Allergy/AdvReac Type Severity Reaction Status Date / Time No Known Allergies Allergy Verified 10/09/18 08:13 - Medications Medications: Current Medications Acetaminophen (Tylenol 325mg Tab) 650 mg PO Q6 PRN PRN Reason: Pain, Mild (1-3) Sodium Chloride (Sodium Chloride 0.9%) 1,000 mls @ 100 mls/hr IV .Q10H KIAN Last Admin: 10/09/18 09:57 Dose: 100 mls/hr Dextrose/Lactated Ringer's (Dextrose 5%/Lactated Ringer's) 1,000 mls @ 125 mls/hr IV .Q8H KIAN Metronidazole (Flagyl) 500 mg in 100 mls @ 100 mls/hr IVPB Q8H KIAN; Protocol Piperacillin Sod/Tazobactam (Sod 3.375 gm/ Sodium Chloride) 100 mls @ 200 mls/hr IVPB Q8H KIAN; Protocol Pantoprazole Sodium (Protonix Inj) 40 mg IVP Q12 KIAN Physical Exam - Additional Findings Additional findings: - Constitutional Appears: Non-toxic, No Acute Distress - Head Exam Head Exam: ATRAUMATIC, NORMAL INSPECTION - Eye Exam Eye Exam: Normal appearance - ENT Exam ENT Exam: Mucous Membranes Moist - Respiratory Exam Respiratory Exam: Clear to Auscultation Bilateral, NORMAL BREATHING PATTERN. absent: Rhonchi, Wheezes - Cardiovascular Exam Cardiovascular Exam: REGULAR RHYTHM, +S1, +S2 - GI/Abdominal Exam GI & Abdominal Exam: Distended (mild distention), Normal Bowel Sounds, Soft, Tenderness (suprapubic tenderness). absent: Guarding, Rebound - Rectal Exam Rectal Exam: good rectal tone, smooth mclean and prostate, no masses noted, no hemorrhoids/skin tags/fissures, no blood noted - Extremities Exam Extremities exam: Positive for: normal inspection. Negative for: pedal edema, tenderness - Neurological Exam Neurological exam: Alert, CN II-XII Intact, Oriented x3 - Psychiatric Exam Psychiatric exam: Normal Affect, Normal Mood - Skin Skin Exam: Dry, Intact Results - Vital Signs Recent Vital Signs: Last Vital Signs Temp 98.7 F 10/09/18 14:10 Pulse 93 H 10/09/18 14:10 Resp 18 10/09/18 14:10 BP 152/87 H 10/09/18 14:10 Pulse Ox 100 10/09/18 14:10 - Labs Result Diagrams: 10/09/18 08:40 10/09/18 08:40 Labs: Laboratory Results - last 24 hr 10/09/18 10/09/18 10/09/18 08:40 08:40 08:40 WBC 12.1 H RBC 4.26 L Hgb 9.8 L Hct 30.7 L MCV 72.1 L MCH 23.0 L MCHC 31.9 L RDW 17.1 H Plt Count 614 H MPV 7.9 Neut % (Auto) 67.2 Lymph % (Auto) 21.6 [place] % (Auto) 7.2 Eos % (Auto) 3.6 Baso % (Auto) 0.4 Neut # (Auto) 8.1 H Lymph # (Auto) 2.6 [place] # (Auto) 0.9 H Eos # (Auto) 0.4 Baso # (Auto) 0.1 PT 13.4 H INR 1.2 APTT 28.5 pO2 VBG pH VBG pCO2 VBG HCO3 VBG Total CO2 VBG O2 Sat (Calc) VBG Base Excess VBG Potassium Glucose Lactate Sodium 136 Potassium 3.4 L Chloride 96 L Carbon Dioxide 31 H Anion Gap 12 BUN 11 Creatinine 1.0 Est GFR ( Amer) > 60 Est GFR (Non-Af Amer) > 60 Random Glucose 184 H D Calcium 9.2 Total Bilirubin 0.4 AST 20 ALT 14 L D Alkaline Phosphatase 53 Total Protein 7.1 Albumin 3.4 L Globulin 3.7 Albumin/Globulin Ratio 0.9 L Venous Blood Potassium Blood Type Antibody Screen 10/09/18 10/09/18 08:40 08:50 WBC RBC Hgb Hct MCV MCH MCHC RDW Plt Count MPV Neut % (Auto) Lymph % (Auto) [place] % (Auto) Eos % (Auto) Baso % (Auto) Neut # (Auto) Lymph # (Auto) [place] # (Auto) Eos # (Auto) Baso # (Auto) PT INR APTT pO2 23 L VBG pH 7.36 VBG pCO2 50 VBG HCO3 24.8 VBG Total CO2 29.7 H VBG O2 Sat (Calc) 24.1 L VBG Base Excess 1.9 VBG Potassium 3.2 L Glucose 179 H Lactate 1.8 Sodium 136.0 Potassium Chloride 103.0 Carbon Dioxide Anion Gap BUN Creatinine Est GFR ( Amer) Est GFR (Non-Af Amer) Random Glucose Calcium Total Bilirubin AST ALT Alkaline Phosphatase Total Protein Albumin Globulin Albumin/Globulin Ratio Venous Blood Potassium 3.2 L Blood Type A POSITIVE Antibody Screen Negative Assessment & Plan - Assessment and Plan (Free Text) Assessment: 68 M with suspected sigmoid colon mass and colovesicular fistula Plan: -f/u GI recommendations, will need colonoscopy for biopsy -f/u urology -Pain control -Anti-emtics PRN -Monitor bowel function -Plan for OR this week after tissue diagnosis is obtained -Further recommendations as per Dr. Kierra Cha PGY2 - Date & Time Date: 10/09/18 Time: 14:00 <Otilio Lozada - Last Filed: 10/16/18 20:59> Meds - Medications Medications: Current Medications Amlodipine Besylate (Norvasc) 5 mg PO DAILY [facility] Last Admin: 10/16/18 10:17 Dose: 5 mg Artificial Tears (Artificial Tears) 1 ml OU BID KIAN Last Admin: 10/16/18 17:41 Dose: 1 drop Enoxaparin Sodium (Lovenox) 40 mg SC DAILY KIAN Last Admin: 10/16/18 10:07 Dose: 40 mg Famotidine (Pepcid) 20 mg IVP Q12 KIAN Last Admin: 10/16/18 10:10 Dose: 20 mg Hydromorphone HCl (Dilaudid) 1 mg IVP Q3H PRN PRN Reason: Pain, severe (8-10) Last Admin: 10/16/18 17:49 Dose: 1 mg Meropenem 1 gm/ Sodium (Chloride) 100 mls @ 100 mls/hr IVPB Q8H KIAN; Protocol Last Admin: 10/16/18 13:28 Dose: 100 mls/hr BUPIVACAINE 0.125%/0.9% NACL (Bupivacaine-Ns 0.125% On-Q Chief Technician X Ray) 600 mls @ 4 mls/hr IJ ONCE ONE Stop: 10/19/18 15:59 Potassium Chloride/Dextrose/Sod Cl (Potassium Chl 40 Meq In D5-1/2ns) 1,000 mls @ 100 mls/hr IV .Q10H KIAN Last Admin: 10/16/18 19:54 Dose: 100 mls/hr Lactobacillus Acidophilus (Lactobacillus) 1 cap PO Q12H KIAN Last Admin: 10/16/18 14:15 Dose: 1 cap Lidocaine (Lidoderm) 1 ea TD DAILY [facility] Last Admin: 10/16/18 10:07 Dose: 1 ea Results - Vital Signs Recent Vital Signs: Last Vital Signs Temp 97.3 F L 10/16/18 15:00 Pulse 90 10/16/18 15:00 Resp 20 10/16/18 15:00 BP 144/87 10/16/18 15:00 Pulse Ox 98 10/16/18 15:00 - Labs Result Diagrams: 10/16/18 09:06 10/16/18 09:06 Labs: Laboratory Results - last 24 hr 10/16/18 10/16/18 09:06 09:06 WBC 10.3 RBC 3.89 L Hgb 9.4 L Hct 28.7 L MCV 73.6 L MCH 24.2 L MCHC 32.9 L RDW 18.5 H Plt Count 583 H MPV 7.5 Neut % (Auto) 68.6 Lymph % (Auto) 20.3 [place] % (Auto) 6.7 Eos % (Auto) 3.3 Baso % (Auto) 1.1 Neut # (Auto) 7.1 H Lymph # (Auto) 2.1 [place] # (Auto) 0.7 Eos # (Auto) 0.3 Baso # (Auto) 0.1 Sodium 132 Potassium 3.6 Chloride 97 L Carbon Dioxide 32 H Anion Gap 7 L BUN 6 L Creatinine 0.7 L Est GFR ( Amer) > 60 Est GFR (Non-Af Amer) > 60 Random Glucose 134 H D Calcium 8.2 L Total Bilirubin 0.2 AST 26 ALT 30 Alkaline Phosphatase 42 Total Protein 6.0 L Albumin 2.7 L Globulin 3.3 Albumin/Globulin Ratio 0.8 L Attending/Attestation - Attestation I have personally seen and examined this patient.: Yes I have fully participated in the care of the patient.: Yes I have reviewed all pertinent clinical information: Yes Notes (Text): Pt was seen and examined at bedside Agree with above note and assessment Pt with abdominal pain and nausea and UTI Abdomen: Soft, Distended, Tender Labs and radiology reviewed Ass: Colon Mass with partial obstruction and UTI Plan : NG tube to LIS NPO, IVF IV antibiotics GI consult for Colonoscopy and Biopsy Urology consult for stent placement for possible colon resection repeat labs in am Plan d.w pt in detail Risk and benefit explained in detail.
[2018-10-09 14:31] LABS: IRON 18 ug/dL (49-181)
[2018-10-09 14:40] LABS: % IRON SATURATION 8 (20-55); TOTAL IRON BINDING CAPACITY 212 ug/dL (250-450)
[2018-10-09] MEDS ORDERED: metroNIDAZOLE IV 500 mg/100 ml 500 MG/100 ML BAG IVPB SCH (15:00)
[2018-10-09 15:07] LABS: FERRITIN 34.8 ng/mL
[2018-10-09] MEDS: metroNIDAZOLE IV 500 mg/100 ml 500 MG/100 ML BAG IVPB SCH (16:40)
[2018-10-09] MEDS: Sodium Chloride 0.9% 1,000 ML IV SCH (16:50)
[2018-10-09] MEDS ORDERED: Potassium Chloride 20 mEq ER Tab PO ONE (19:15)
[2018-10-09 19:19] LABS: FECAL LEUKOCYTES NEGATIVE (NEGATIVE)
[2018-10-09] MEDS: Piperacill/Tazo 3.375gm in Dex 3.375 GM/50 ML BAG IVPB SCH (20:30)
[2018-10-09 23:12] LABS: URINE BACTERIA FEW (<OCC); URINE BILIRUBIN NEGATIVE (NEGATIVE); URINE BLOOD 2+ (NEGATIVE); URINE CLARITY Hazy (Clear); URINE COLOR Yellow (YELLOW); URINE GLUCOSE (UA) NORMAL (Normal); URINE HYALINE CAST 0-2 /lpf (0-2); URINE LEUKOCYTE ESTERASE 2+ Leu/uL (Negative); URINE PROTEIN 1+ mg/dL (NEGATIVE); URINE UROBILINOGEN NORMAL mg/dL (0.2-1.0)
[2018-10-10] MEDS: Sodium Chloride 0.9% 1,000 ML IV SCH ×5 (01:00→21:19)
[2018-10-10] MEDS: Piperacill/Tazo 3.375gm in Dex 3.375 GM/50 ML BAG IVPB SCH ×4 (02:30→19:01)
[2018-10-10] MEDS: metroNIDAZOLE IV 500 mg/100 ml 500 MG/100 ML BAG IVPB SCH ×3 (07:56→16:00)
[2018-10-10 08:02] LABS: BASO # 0.1 K/uL (0.0-0.2); BASO % 0.8 % (0.0-2.0); EOS # 0.2 K/uL (0.0-0.7); EOS % 1.8 % (0.0-4.0); HEMOGLOBIN 8.3 g/dL (12.0-18.0); LYMPH # 2.9 K/uL (1.0-4.3); LYMPH % 21.6 % (20.0-40.0); MEAN CELL VOLUME 71.4 fL (80.0-94.0); MEAN CORPUSCULAR HGB CONC 32.2 g/dL (33.0-37.0); MEAN PLATELET VOLUME 7.6 fL (7.2-11.7); MONO # 1.1 K/uL (0.0-0.8); MONO % 8.3 % (0.0-10.0); NEUT % 67.5 % (50.0-75.0); RBC 3.6 Mil/uL (4.40-5.90); RED CELL DISTRIBUTION WIDTH 16.6 % (11.5-14.5); WHITE BLOOD COUNT 13.4 K/uL (4.8-10.8)
[2018-10-10 08:23] LABS: ALB/GLOB RATIO 0.9 (1.0-2.1); ALBUMIN 2.9 g/dL (3.5-5.0); ALT/SGPT 18 U/L (21-72); AST/SGOT 25 U/L (17-59); BLOOD UREA NITROGEN 8 mg/dL (9-20); CALCIUM 8.2 mg/dl (8.6-10.4); GFR NON-AFRICAN AMERICAN > 60
--- NOTE | 2018-10-10 08:23 | CP.PCM.CON ---
<Talia Mc - Last Filed: 10/10/18 08:24> History of Present Illness - History of Present Illness History of Present Illness: GI Fellow PGY5 Consult Note Patient is a 68 year old male with no significan PMHx who presents with chief complaints of abdominal pain, diarrhea, and urinary frequency and urgency. Patient states symptoms first began about 6 months ago when he noticed abdominal pain and watery diarrhea. he denies any rectal bleeding or constipation. He has also noticed increased generalized weakness and began losing weight unintentionally ~20lbs in 2months. Patient also states he has had foul-smelling urine which is sometimes brown and occurs at the same time as BM. Patient now reports difficulty emptying his bladder, and states that he sometimes cannot make it to the bathroom on time. He denies any prior issues with his bowel and urine except in the past few months. His abdominal pain is constant and located mostly periumbilical. No prior EGD/Colonoscopy. ROS: A 12pt ROS was negative except as above. PMHx: As stated in HPI PSHx: No surgeries Family hx: No known family hx of Colon [place] Social history: Never smoked. Denies alcohol or drug use. 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 Originally from [place]. Past Patient History - Past Medical History & Family History Past Medical History?: No - Past Social History Smoking Status: Never Smoked - MUSCULOSKELETAL/RHEUMATOLOGICAL Hx Falls: No - PSYCHIATRIC Hx Substance Use: No - SURGICAL HISTORY Hx Surgeries: No - ANESTHESIA Hx Anesthesia: No Meds Allergies/Adverse Reactions: Allergies Allergy/AdvReac Type Severity Reaction Status Date / Time No Known Allergies Allergy Verified 10/09/18 08:13 - Medications Medications: Current Medications Acetaminophen (Tylenol 325mg Tab) 650 mg PO Q6 PRN PRN Reason: Pain, Mild (1-3) Sodium Chloride (Sodium Chloride 0.9%) 1,000 mls @ 125 mls/hr IV .Q8H [facility] Last Admin: 10/10/18 08:09 Dose: 125 mls/hr Metronidazole (Flagyl) 500 mg in 100 mls @ 100 mls/hr IVPB Q8H [facility]; Protocol Last Admin: 10/10/18 07:56 Dose: 100 mls/hr Piperacillin Sod/Tazobactam Sod (Zosyn 3.375 Gm Iv Premix) 3.375 gm in 50 mls @ 100 mls/hr IVPB Q6H [facility]; Protocol Last Admin: 10/10/18 08:13 Dose: 100 mls/hr Pantoprazole Sodium (Protonix Inj) 40 mg IVP Q12 [facility] Last Admin: 10/09/18 21:10 Dose: 40 mg Pneumococcal Polyvalent Vaccine (Pneumovax 23 Vaccine) 0.5 ml IM .ONCE ONE Stop: 10/11/18 10:01 Physical Exam - Constitutional Appears: Non-toxic, No Acute Distress, Cachectic - Head Exam Head Exam: ATRAUMATIC, NORMAL INSPECTION, NORMOCEPHALIC - Eye Exam Eye Exam: EOMI, Normal appearance, PERRL - ENT Exam ENT Exam: Mucous Membranes Moist, Normal Exam - Neck Exam Neck exam: Positive for: Normal Inspection - Respiratory Exam Respiratory Exam: Clear to Auscultation Bilateral, NORMAL BREATHING PATTERN - Cardiovascular Exam Cardiovascular Exam: REGULAR RHYTHM, RRR, +S1, +S2 - GI/Abdominal Exam GI & Abdominal Exam: Normal Bowel Sounds, Soft, Tenderness. absent: Distended, Mass, Organomegaly - Rectal Exam Rectal Exam: Deferred - Extremities Exam Extremities exam: Positive for: full ROM, normal inspection - Back Exam Back exam: NORMAL INSPECTION - Neurological Exam Neurological exam: Alert, Oriented x3 - Psychiatric Exam Psychiatric exam: Normal Affect, Normal Mood - Skin Skin Exam: Dry, Intact, Normal Color, Warm Results - Vital Signs Recent Vital Signs: Last Vital Signs Temp 99 F 10/10/18 08:10 Pulse 102 H 10/10/18 08:10 Resp 20 10/10/18 08:10 BP 135/77 10/10/18 08:10 Pulse Ox 100 10/10/18 08:10 - Labs Result Diagrams: 10/10/18 07:51 10/10/18 07:51 Labs: Laboratory Results - last 24 hr 10/09/18 10/09/18 10/09/18 08:40 08:40 08:40 WBC 12.1 H RBC 4.26 L Hgb 9.8 L Hct 30.7 L MCV 72.1 L MCH 23.0 L MCHC 31.9 L RDW 17.1 H Plt Count 614 H MPV 7.9 Neut % (Auto) 67.2 Lymph % (Auto) 21.6 Falls % (Auto) 7.2 Eos % (Auto) 3.6 Baso % (Auto) 0.4 Neut # (Auto) 8.1 H Lymph # (Auto) 2.6 Falls # (Auto) 0.9 H Eos # (Auto) 0.4 Baso # (Auto) 0.1 Retic Count PT 13.4 H INR 1.2 APTT 28.5 pO2 VBG pH VBG pCO2 VBG HCO3 VBG Total CO2 VBG O2 Sat (Calc) VBG Base Excess VBG Potassium Glucose Lactate Sodium 136 Potassium 3.4 L Chloride 96 L Carbon Dioxide 31 H Anion Gap 12 BUN 11 Creatinine 1.0 Est GFR ( Amer) > 60 Est GFR (Non-Af Amer) > 60 Random Glucose 184 H D Calcium 9.2 Phosphorus Magnesium Iron TIBC % Saturation Ferritin Total Bilirubin 0.4 AST 20 ALT 14 L D Alkaline Phosphatase 53 Total Protein 7.1 Albumin 3.4 L Globulin 3.7 Albumin/Globulin Ratio 0.9 L Procalcitonin Venous Blood Potassium Urine Color Urine Clarity Urine pH Ur Specific [place] Urine Protein Urine Glucose (UA) Urine Ketones Urine Blood Urine Nitrate Urine Bilirubin Urine Urobilinogen Ur Leukocyte Esterase Urine WBC (Auto) Urine RBC (Auto) Urine Bacteria Hyaline Casts Stool Occult Blood Stool Leukocytes, Qual Blood Type Antibody Screen 10/09/18 10/09/18 10/09/18 08:40 08:50 13:19 WBC RBC Hgb Hct MCV MCH MCHC RDW Plt Count MPV Neut % (Auto) Lymph % (Auto) Falls % (Auto) Eos % (Auto) Baso % (Auto) Neut # (Auto) Lymph # (Auto) Falls # (Auto) Eos # (Auto) Baso # (Auto) Retic Count 1.2 PT INR APTT pO2 23 L VBG pH 7.36 VBG pCO2 50 VBG HCO3 24.8 VBG Total CO2 29.7 H VBG O2 Sat (Calc) 24.1 L VBG Base Excess 1.9 VBG Potassium 3.2 L Glucose 179 H Lactate 1.8 Sodium 136.0 Potassium Chloride 103.0 Carbon Dioxide Anion Gap BUN Creatinine Est GFR ( Amer) Est GFR (Non-Af Amer) Random Glucose Calcium Phosphorus Magnesium Iron TIBC % Saturation Ferritin Total Bilirubin AST ALT Alkaline Phosphatase Total Protein Albumin Globulin Albumin/Globulin Ratio Procalcitonin Venous Blood Potassium 3.2 L Urine Color Urine Clarity Urine pH Ur Specific [place] Urine Protein Urine Glucose (UA) Urine Ketones Urine Blood Urine Nitrate Urine Bilirubin Urine Urobilinogen Ur Leukocyte Esterase Urine WBC (Auto) Urine RBC (Auto) Urine Bacteria Hyaline Casts Stool Occult Blood Stool Leukocytes, Qual Blood Type A POSITIVE Antibody Screen Negative 10/09/18 10/09/18 10/09/18 14:01 14:01 14:01 WBC RBC Hgb Hct MCV MCH MCHC RDW Plt Count MPV Neut % (Auto) Lymph % (Auto) Falls % (Auto) Eos % (Auto) Baso % (Auto) Neut # (Auto) Lymph # (Auto) Falls # (Auto) Eos # (Auto) Baso # (Auto) Retic Count PT INR APTT pO2 VBG pH VBG pCO2 VBG HCO3 VBG Total CO2 VBG O2 Sat (Calc) VBG Base Excess VBG Potassium Glucose Lactate Sodium Potassium Chloride Carbon Dioxide Anion Gap BUN Creatinine Est GFR ( Amer) Est GFR (Non-Af Amer) Random Glucose Calcium Phosphorus 3.9 Magnesium 1.9 Iron 18 L TIBC 212 L % Saturation 8 L Ferritin 34.8 Total Bilirubin AST ALT Alkaline Phosphatase Total Protein Albumin Globulin Albumin/Globulin Ratio Procalcitonin Venous Blood Potassium Urine Color Urine Clarity Urine pH Ur Specific [place] Urine Protein Urine Glucose (UA) Urine Ketones Urine Blood Urine Nitrate Urine Bilirubin Urine Urobilinogen Ur Leukocyte Esterase Urine WBC (Auto) Urine RBC (Auto) Urine Bacteria Hyaline Casts Stool Occult Blood Stool Leukocytes, Qual Blood Type Antibody Screen 10/09/18 10/09/18 10/09/18 16:26 16:29 22:59 WBC RBC Hgb Hct MCV MCH MCHC RDW Plt Count MPV Neut % (Auto) Lymph % (Auto) Falls % (Auto) Eos % (Auto) Baso % (Auto) Neut # (Auto) Lymph # (Auto) Falls # (Auto) Eos # (Auto) Baso # (Auto) Retic Count PT INR APTT pO2 VBG pH VBG pCO2 VBG HCO3 VBG Total CO2 VBG O2 Sat (Calc) VBG Base Excess VBG Potassium Glucose Lactate Sodium Potassium Chloride Carbon Dioxide Anion Gap BUN Creatinine Est GFR ( Amer) Est GFR (Non-Af Amer) Random Glucose Calcium Phosphorus Magnesium Iron TIBC % Saturation Ferritin Total Bilirubin AST ALT Alkaline Phosphatase Total Protein Albumin Globulin Albumin/Globulin Ratio Procalcitonin < 0.05 L Venous Blood Potassium Urine Color Yellow Urine Clarity Hazy Urine pH 6.0 Ur Specific [place] 1.014 Urine Protein 1+ H Urine Glucose (UA) Normal Urine Ketones Negative Urine Blood 2+ H Urine Nitrate Negative Urine Bilirubin Negative Urine Urobilinogen Normal Ur Leukocyte Esterase 2+ H Urine WBC (Auto) 228 H Urine RBC (Auto) 31 H Urine Bacteria Few H Hyaline Casts 0-2 Stool Occult Blood Positive H Stool Leukocytes, Qual Negative Blood Type Antibody Screen 10/10/18 07:51 WBC 13.4 H RBC 3.60 L Hgb 8.3 L Hct 25.7 L MCV 71.4 L MCH 23.0 L MCHC 32.2 L RDW 16.6 H Plt Count 572 H MPV 7.6 Neut % (Auto) 67.5 Lymph % (Auto) 21.6 Falls % (Auto) 8.3 Eos % (Auto) 1.8 Baso % (Auto) 0.8 Neut # (Auto) 9.0 H Lymph # (Auto) 2.9 Falls # (Auto) 1.1 H Eos # (Auto) 0.2 Baso # (Auto) 0.1 Retic Count PT INR APTT pO2 VBG pH VBG pCO2 VBG HCO3 VBG Total CO2 VBG O2 Sat (Calc) VBG Base Excess VBG Potassium Glucose Lactate Sodium Potassium Chloride Carbon Dioxide Anion Gap BUN Creatinine Est GFR ( Amer) Est GFR (Non-Af Amer) Random Glucose Calcium Phosphorus Magnesium Iron TIBC % Saturation Ferritin Total Bilirubin AST ALT Alkaline Phosphatase Total Protein Albumin Globulin Albumin/Globulin Ratio Procalcitonin Venous Blood Potassium Urine Color Urine Clarity Urine pH Ur Specific [place] Urine Protein Urine Glucose (UA) Urine Ketones Urine Blood Urine Nitrate Urine Bilirubin Urine Urobilinogen Ur Leukocyte Esterase Urine WBC (Auto) Urine RBC (Auto) Urine Bacteria Hyaline Casts Stool Occult Blood Stool Leukocytes, Qual Blood Type Antibody Screen Assessment & Plan - Assessment and Plan (Free Text) Assessment: 1. Sigmoid colon mass 2. Colovesicular fistula 3. Dysuria 4. Weightloss Plan: -CT imaging reviewed -Pt will need colonoscopy/flex for biopsy -f/u urology -Pain control -Abx per primary team -Surgical team following pt -Will continue to follow and further recs after procedure tomorrow <Db Kuhn Y - Last Filed: 10/10/18 15:18> Meds - Medications Medications: Current Medications Acetaminophen (Tylenol 325mg Tab) 650 mg PO Q6 PRN PRN Reason: Pain, Mild (1-3) Famotidine (Pepcid) 20 mg IVP Q12 [facility] Last Admin: 10/10/18 11:24 Dose: Not Given Sodium Chloride (Sodium Chloride 0.9%) 1,000 mls @ 125 mls/hr IV .Q8H [facility] Last Admin: 10/10/18 13:35 Dose: Not Given Metronidazole (Flagyl) 500 mg in 100 mls @ 100 mls/hr IVPB Q8H [facility]; Protocol Last Admin: 10/10/18 07:56 Dose: 100 mls/hr Piperacillin Sod/Tazobactam Sod (Zosyn 3.375 Gm Iv Premix) 3.375 gm in 50 mls @ 100 mls/hr IVPB Q6H [facility]; Protocol Last Admin: 10/10/18 13:27 Dose: 100 mls/hr Lidocaine (Lidocaine 5%) 1 gm TOP ONCE ONE Stop: 10/10/18 15:31 Pneumococcal Polyvalent Vaccine (Pneumovax 23 Vaccine) 0.5 ml IM .ONCE ONE Stop: 10/11/18 10:01 Results - Vital Signs Recent Vital Signs: Last Vital Signs Temp 99 F 10/10/18 14:50 Pulse 107 H 10/10/18 14:50 Resp 19 10/10/18 14:50 BP 158/80 H 10/10/18 14:50 Pulse Ox 99 10/10/18 14:50 - Labs Result Diagrams: 10/10/18 07:51 10/10/18 07:51 Labs: Laboratory Results - last 24 hr 10/09/18 10/09/18 10/09/18 16:26 16:29 22:59 WBC RBC Hgb Hct MCV MCH MCHC RDW Plt Count MPV Neut % (Auto) Lymph % (Auto) Falls % (Auto) Eos % (Auto) Baso % (Auto) Neut # (Auto) Lymph # (Auto) Falls # (Auto) Eos # (Auto) Baso # (Auto) Sodium Potassium Chloride Carbon Dioxide Anion Gap BUN Creatinine Est GFR ( Amer) Est GFR (Non-Af Amer) Random Glucose Calcium Total Bilirubin AST ALT Alkaline Phosphatase Total Protein Albumin Globulin Albumin/Globulin Ratio Procalcitonin < 0.05 L Free T4 TSH 3rd Generation Urine Color Yellow Urine Clarity Hazy Urine pH 6.0 Ur Specific [place] 1.014 Urine Protein 1+ H Urine Glucose (UA) Normal Urine Ketones Negative Urine Blood 2+ H Urine Nitrate Negative Urine Bilirubin Negative Urine Urobilinogen Normal Ur Leukocyte Esterase 2+ H Urine WBC (Auto) 228 H Urine RBC (Auto) 31 H Urine Bacteria Few H Hyaline Casts 0-2 Stool Occult Blood Positive H Stool Leukocytes, Qual Negative 10/10/18 10/10/18 10/10/18 07:51 07:51 07:51 WBC 13.4 H RBC 3.60 L Hgb 8.3 L Hct 25.7 L MCV 71.4 L MCH 23.0 L MCHC 32.2 L RDW 16.6 H Plt Count 572 H MPV 7.6 Neut % (Auto) 67.5 Lymph % (Auto) 21.6 Falls % (Auto) 8.3 Eos % (Auto) 1.8 Baso % (Auto) 0.8 Neut # (Auto) 9.0 H Lymph # (Auto) 2.9 Falls # (Auto) 1.1 H Eos # (Auto) 0.2 Baso # (Auto) 0.1 Sodium 136 Potassium 3.9 Chloride 102 Carbon Dioxide 24 Anion Gap 14 BUN 8 L Creatinine 1.0 Est GFR ( Amer) > 60 Est GFR (Non-Af Amer) > 60 Random Glucose 90 D Calcium 8.2 L Total Bilirubin 0.6 AST 25 ALT 18 L D Alkaline Phosphatase 46 Total Protein 6.0 L Albumin 2.9 L Globulin 3.1 Albumin/Globulin Ratio 0.9 L Procalcitonin Free T4 1.72 TSH 3rd Generation 1.73 Urine Color Urine Clarity Urine pH Ur Specific [place] Urine Protein Urine Glucose (UA) Urine Ketones Urine Blood Urine Nitrate Urine Bilirubin Urine Urobilinogen Ur Leukocyte Esterase Urine WBC (Auto) Urine RBC (Auto) Urine Bacteria Hyaline Casts Stool Occult Blood Stool Leukocytes, Qual Attending/Attestation - Attestation I have personally seen and examined this patient.: Yes I have fully participated in the care of the patient.: Yes I have reviewed all pertinent clinical information: Yes Notes (Text): 10/10/18 15:15 I have seen and examined patient with GI fellow. Agree with above documentation with the following additions. In brief, this is a 68 year old male without significant medical history who presents with progressive abdominal pain and change in bowel movements over a 6 month period. During this time period he has noted an unintentional weight loss of nearly 20 pounds with the development of foul smelling urine with intermittent incontinence. No prior endoscopic e valuation. Sigmoid mass lesion as visualized on CT imaging Colovesicular fistula Weight loss - NPO - Follow up surgical and urology recommendations - Plan for sigmoidoscopy today to obtain tissue diagnosis - Further recommendations following endoscopic examination
--- NOTE | 2018-10-10 09:35 | CP.PCM.PN ---
<Polo Rosa - Last Filed: 10/10/18 13:35> Subjective - Date & Time of Evaluation Date of Evaluation: 10/10/18 Time of Evaluation: 09:20 - Subjective Subjective: Medicine Progress Note for Dr. Calle, Hospitalist Service Pt seen and examined at bedside this am. States he had severe lower back pain earlier this am but currently states that his pain is much improved, not requesting pain meds at this time. Reports watery diarrhea with occasional drops of blood unchanged from initial presentation. Denies fever, chills, chest pain, sob, n/v/d/c, or other symptoms. Currently NPO. Objective - Vital Signs/Intake and Output Vital Signs (last 24 hours): Temp Pulse Resp BP Pulse Ox 99 F 102 H 20 135/77 100 10/10/18 08:10 10/10/18 08:10 10/10/18 08:10 10/10/18 08:10 10/10/18 08:10 Intake and Output: 10/10/18 10/10/18 06:59 18:59 Intake Total 1025 Balance 1025 - Medications Medications: Current Medications Acetaminophen (Tylenol 325mg Tab) 650 mg PO Q6 PRN PRN Reason: Pain, Mild (1-3) Sodium Chloride (Sodium Chloride 0.9%) 1,000 mls @ 125 mls/hr IV .Q8H [facility] Last Admin: 10/10/18 08:09 Dose: 125 mls/hr Metronidazole (Flagyl) 500 mg in 100 mls @ 100 mls/hr IVPB Q8H [facility]; Protocol Last Admin: 10/10/18 07:56 Dose: 100 mls/hr Piperacillin Sod/Tazobactam Sod (Zosyn 3.375 Gm Iv Premix) 3.375 gm in 50 mls @ 100 mls/hr IVPB Q6H [facility]; Protocol Last Admin: 10/10/18 08:13 Dose: 100 mls/hr Pantoprazole Sodium (Protonix Inj) 40 mg IVP Q12 [facility] Last Admin: 10/10/18 09:15 Dose: 40 mg Pneumococcal Polyvalent Vaccine (Pneumovax 23 Vaccine) 0.5 ml IM .ONCE ONE Stop: 10/11/18 10:01 - Labs Labs: 10/10/18 07:51 10/10/18 07:51 PT 13.4 SECONDS (9.7-12.2) H 10/09/18 08:40 INR 1.2 10/09/18 08:40 APTT 28.5 SECONDS (21-34) 10/09/18 08:40 - Constitutional Appears: Non-toxic, No Acute Distress - Head Exam Head Exam: ATRAUMATIC, NORMOCEPHALIC - Eye Exam Eye Exam: EOMI, Normal appearance, PERRL - ENT Exam ENT Exam: Mucous Membranes Moist - Neck Exam Neck Exam: Full ROM, Normal Inspection. absent: Lymphadenopathy - Respiratory Exam Respiratory Exam: Clear to Ausculation Bilateral, NORMAL BREATHING PATTERN. absent: Rales, Rhonchi, Wheezes - Cardiovascular Exam Cardiovascular Exam: REGULAR RHYTHM, +S1, +S2. absent: Gallop, Rubs, Murmur - GI/Abdominal Exam GI & Abdominal Exam: Soft, Normal Bowel Sounds. absent: Distended, Guarding, Tenderness, Organomegaly - Extremities Exam Extremities Exam: Full ROM, Normal Capillary Refill, Normal Inspection. absent: Pedal Edema, Tenderness - Back Exam Back Exam: Full ROM, NORMAL INSPECTION, tenderness - Neurological Exam Neurological Exam: Alert, Awake, CN II-XII Intact, Oriented x3 - Skin Skin Exam: Dry, Intact, Warm Assessment and Plan - Assessment and Plan (Free Text) Assessment: 68 y o male with no known PMhx presented to the ED with c/o abdominal pain, diarrhea, urinary frequency and urgency, and foul-smelling urine, was found to have complex sigmoid mass with likely colovesicular fistula. Plan: Sigmoid mass complicated by colovesicular fistula -CT A/P w/ IV and PO contrast 10/08: 11 x 8 x 6 mm complex cystic mass in sigmoid colon compatible malignancy., demonstrating solid and cystic chronic components. Associated invasion of the urinary bladder with suspicion for a colovesical fistula -Surgery consulted, katina Joseph appreciated -GI consulted, katina Nails appreciated -Urology consulted, katina Quiñones appreciated -Heme/onc consulted, katina Perez appreciated -Zosyn 3.375 g IV Q6h (started 10/09) -Flagyl 500 mg IV Q8h (started 10/09) -Plan for possible colonoscopy tomorrow to be performed by GI for tissue biopsy sample, pt to remain NPO for procedure Leukocytosis, SIRS -Leukocytosis trending up this am; tachycardia present, cont to trend -Blood cultures, stool cultures, urine cultures - f/u -Stool studies (stool leukocytes, fecal occult, cultures) - f/u -Procal neg -Zosyn/Flagyl -LR @ 125cc/hr Anemia -Hgb 9.7 on admission, down from 10.2 on ED visit 10/08 -Microcytic, possible 2/2 GI bleed from colonic mass -Iron studies demonstrate iron-deficiency anemia -Cont to trend H/H -Pepcid 20 mg IVP bid BRBPR -GI consulted, katina Nails appreciated -Stool occult positive for blood -Plan for possible colonscopy tomorrow Hypokalemia -Resolved, cont to monitor Dysuria, hematuria 2/2 fistula -Urology consulted, katina Quiñones appreciated -U/a positive for UTI, f/u urine cx results -Zosyn/Flagyl -Testicular U/s done due to pt c/o testicular pain yesterday, denies pain in area currently today, f/u results Pulmonary Nodule on CXR -CXR 10/09: No acute findings identified. 6 mm probable calcified nodule, left mid lung zone. -Can f/u outpatient after d/c PPX -DVT ppx c/i contraindicated 2/2 anemia, GI bleed -Pepcid 20 mg IVP q12h -Remain NPO Pt seen, examined with, and plan discussed with Dr. Calle, attending physician. Polo Rosa DO PGY-1, Commercial Ann[employer] Pager #[phone] <Libby Calle V - Last Filed: 10/10/18 15:30> Objective - Vital Signs/Intake and Output Vital Signs (last 24 hours): Temp Pulse Resp BP Pulse Ox 99 F 107 H 19 158/80 H 99 10/10/18 14:50 10/10/18 14:50 10/10/18 14:50 10/10/18 14:50 10/10/18 14:50 Intake and Output: 10/10/18 10/10/18 06:59 18:59 Intake Total 1025 875 Balance 1025 875 - Medications Medications: Current Medications Acetaminophen (Tylenol 325mg Tab) 650 mg PO Q6 PRN PRN Reason: Pain, Mild (1-3) Famotidine (Pepcid) 20 mg IVP Q12 [facility] Last Admin: 10/10/18 11:24 Dose: Not Given Sodium Chloride (Sodium Chloride 0.9%) 1,000 mls @ 125 mls/hr IV .Q8H [facility] Last Admin: 10/10/18 13:35 Dose: Not Given Metronidazole (Flagyl) 500 mg in 100 mls @ 100 mls/hr IVPB Q8H [facility]; Protocol Last Admin: 10/10/18 07:56 Dose: 100 mls/hr Piperacillin Sod/Tazobactam Sod (Zosyn 3.375 Gm Iv Premix) 3.375 gm in 50 mls @ 100 mls/hr IVPB Q6H [facility]; Protocol Last Admin: 10/10/18 13:27 Dose: 100 mls/hr Lidocaine (Lidocaine 5%) 1 gm TOP ONCE ONE Stop: 10/10/18 15:31 Pneumococcal Polyvalent Vaccine (Pneumovax 23 Vaccine) 0.5 ml IM .ONCE ONE Stop: 10/11/18 10:01 - Labs Labs: 10/10/18 07:51 10/10/18 07:51 PT 13.4 SECONDS (9.7-12.2) H 10/09/18 08:40 INR 1.2 10/09/18 08:40 APTT 28.5 SECONDS (21-34) 10/09/18 08:40 Attending/Attestation - Attestation I have personally seen and examined this patient.: Yes I have fully participated in the care of the patient.: Yes I have reviewed all pertinent clinical information, including history, physical exam and plan: Yes Notes (Text): This is a 68-year-old male with no past medical history who came in following associated weight loss, chronic diarrhea, anemia, rectal bleeding was found to have on CAT scan from October 08 a sigmoid mass invading the bladder with report noted for colovesical vesicle fistula. Patient seen this morning patient reports he is feeling okay. We did discuss with him in terms of what a fistula is he does note that he does both defecate and urinate at the same time. Patient is on IV antibiotic Zosyn to cover for urinary tract infection. Patient denies left testicular pain.. Testicle ultrasound report is ambivalent we will follow-up with urology with left voice message for Dr. Charles in regards to the patient. Hemoglobin dropped from about 9-> 8 white count remains elevated. General surgery following along awaiting colonoscopy to determine surgical plan. Blood cultures are negative times for 24 hours we are awaiting urine culture as well. Heme-onc is on board recommending for CT chest/abdomen/pelvis to further characterize. Sigmoid mass complicated by colovesicular fistula Assessment/Plan * GI (Dr. Kuhn) director economic help appreciated * General surgery (Dr. 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 Associated invasion of the urinary bladder with suspicion for a colovesical fistula * IV Abx: Zosyn 3.375 g IV Q6h (started 10/09/18) and Flagyl 500 mg IV Q8h (started 10/09/18) * Patient underwent sigmoidoscopy today; pending possible colonoscopy? Leukocytosis, SIRS Assessment/Plan * Blood cultures: negative for 24 hours * Pending urine culture * pending stool studies * Procalcitonin <0.05 * IV Abx: Zosyn 3.375 g IV Q6h (started 10/09/18) and Flagyl 500 mg IV Q8h (started 10/09/18) Anemia, Acute Assessment/Plan * Hgb 9.7 on admission, down from 10.2 on ED visit 10/08 * Microcytic, possible 2/2 GI bleed from colonic mass * Iron studies demonstrate iron-deficiency anemia * Cont to trend H/H * Pepcid 20 mg IVP bid BRBPR Assessment/Plan * GI consulted, Dr. Kuhn, recs appreciated * Stool occult positive for blood * Plan for possible colonoscopy tomorrow Hypokalemia * Resolved, cont to monitor Dysuria, hematuria 2/2 fistula * Urology consulted, Dr. Jabari Charles, recs appreciated * U/a positive for UTI, f/u urine cx results * IV Abx: Zosyn 3.375 g IV Q6h (started 10/09/18) and Flagyl 500 mg IV Q8h (started 10/09/18) * Testicular U/s done due to pt c/o testicular pain yesterday, denies pain in area currently today, f/u results Pulmonary Nodule on CXR * CXR 10/09: No acute findings identified. 6 mm probable calcified nodule, left mid lung zone. * Can f/u outpatient after d/c PPX * DVT ppx c/i contraindicated 2/2 anemia, GI bleed * Pepcid 20 mg IVP q12h * Remain NPO
--- NOTE | 2018-10-10 11:28 | CP.PCM.PN ---
<Hemal Fabian - Last Filed: 10/10/18 11:26> Subjective - Date & Time of Evaluation Date of Evaluation: 10/10/18 Time of Evaluation: 07:15 - Subjective Subjective: Surgery Progress note. Dr. Lozada Pt seen and examined at bedside. Still c/o of some incontinence and dysuria. Denies any fevers or chills. No new complaints. No N/V/D. No Abd pain. No CP/SOB. Objective - Vital Signs/Intake and Output Vital Signs (last 24 hours): Temp Pulse Resp BP Pulse Ox 99 F 102 H 20 135/77 100 10/10/18 08:10 10/10/18 08:10 10/10/18 08:10 10/10/18 08:10 10/10/18 08:10 Intake and Output: 10/10/18 10/10/18 06:59 18:59 Intake Total 1025 Balance 1025 - Medications Medications: Current Medications Acetaminophen (Tylenol 325mg Tab) 650 mg PO Q6 PRN PRN Reason: Pain, Mild (1-3) Famotidine (Pepcid) 20 mg IVP Q12 [facility] Last Admin: 10/10/18 11:24 Dose: Not Given Sodium Chloride (Sodium Chloride 0.9%) 1,000 mls @ 125 mls/hr IV .Q8H [facility] Last Admin: 10/10/18 08:09 Dose: 125 mls/hr Metronidazole (Flagyl) 500 mg in 100 mls @ 100 mls/hr IVPB Q8H [facility]; Protocol Last Admin: 10/10/18 07:56 Dose: 100 mls/hr Piperacillin Sod/Tazobactam Sod (Zosyn 3.375 Gm Iv Premix) 3.375 gm in 50 mls @ 100 mls/hr IVPB Q6H [facility]; Protocol Last Admin: 10/10/18 08:13 Dose: 100 mls/hr Pneumococcal Polyvalent Vaccine (Pneumovax 23 Vaccine) 0.5 ml IM .ONCE ONE Stop: 10/11/18 10:01 - Labs Labs: 10/10/18 07:51 10/10/18 07:51 PT 13.4 SECONDS (9.7-12.2) H 10/09/18 08:40 INR 1.2 10/09/18 08:40 APTT 28.5 SECONDS (21-34) 10/09/18 08:40 - Constitutional Appears: Non-toxic, No Acute Distress - Head Exam Head Exam: ATRAUMATIC, NORMAL INSPECTION, NORMOCEPHALIC - Eye Exam Eye Exam: EOMI, PERRL. absent: Scleral icterus - ENT Exam ENT Exam: Mucous Membranes Moist - Respiratory Exam Respiratory Exam: NORMAL BREATHING PATTERN. absent: Accessory Muscle Use, Respiratory Distress - Cardiovascular Exam Cardiovascular Exam: absent: JVD - GI/Abdominal Exam GI & Abdominal Exam: Soft. 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 Plan: - Pt will benefit from colonoscopy prior to any surgical intervention. F/u GI recs - f/u Urology recs - Pain control - Anti-emetics as needed - Possible OR this week once appropriate work up has been completed Further recs as per Dr. Kierra Fabian PGY2 surgery <Otilio Lozada - Last Filed: 10/16/18 21:00> Objective - Vital Signs/Intake and Output Vital Signs (last 24 hours): Temp Pulse Resp BP Pulse Ox 97.3 F L 90 20 144/87 98 10/16/18 15:00 10/16/18 15:00 10/16/18 15:00 10/16/18 15:00 10/16/18 15:00 Intake and Output: 10/16/18 10/17/18 18:59 06:59 Intake Total 1340 Output Total 830 Balance 510 - Medications Medications: Current Medications Amlodipine Besylate (Norvasc) 5 mg PO DAILY [facility] Last Admin: 10/16/18 10:17 Dose: 5 mg Artificial Tears (Artificial Tears) 1 ml OU BID [facility] Last Admin: 10/16/18 17:41 Dose: 1 drop Enoxaparin Sodium (Lovenox) 40 mg SC DAILY [facility] Last Admin: 10/16/18 10:07 Dose: 40 mg Famotidine (Pepcid) 20 mg IVP Q12 [facility] Last Admin: 10/16/18 10:10 Dose: 20 mg Hydromorphone HCl (Dilaudid) 1 mg IVP Q3H PRN PRN Reason: Pain, severe (8-10) Last Admin: 10/16/18 17:49 Dose: 1 mg Meropenem 1 gm/ Sodium (Chloride) 100 mls @ 100 mls/hr IVPB Q8H [facility]; Protocol Last Admin: 10/16/18 13:28 Dose: 100 mls/hr BUPIVACAINE 0.125%/0.9% NACL (Bupivacaine-Ns 0.125% On-Q Splitting Machine Operator Helper) 600 mls @ 4 mls/hr IJ ONCE ONE Stop: 10/19/18 15:59 Potassium Chloride/Dextrose/Sod Cl (Potassium Chl 40 Meq In D5-1/2ns) 1,000 mls @ 100 mls/hr IV .Q10H [facility] Last Admin: 10/16/18 19:54 Dose: 100 mls/hr Lactobacillus Acidophilus (Lactobacillus) 1 cap PO Q12H [facility] Last Admin: 10/16/18 14:15 Dose: 1 cap Lidocaine (Lidoderm) 1 ea TD DAILY [facility] Last Admin: 10/16/18 10:07 Dose: 1 ea - Labs Labs: 10/16/18 09:06 10/16/18 09:06 PT 15.0 SECONDS (9.7-12.2) H 10/11/18 19:35 INR 1.4 10/11/18 19:35 APTT 26.8 SECONDS (21-34) 10/11/18 19:35 Attending/Attestation - Attestation I have personally seen and examined this patient.: Yes I have fully participated in the care of the patient.: Yes I have reviewed all pertinent clinical information, including history, physical exam and plan: Yes Notes (Text): Pt was seen and examined at bedside Agree with above note and assessment Pt had sigmoidoscopy and biopsy OR tomorrow for Colon resection possible colostomy Consent NPO, IVF C/w IV antibiotics c.w current mx Plan d.w pt in detail
--- NOTE | 2018-10-10 14:15 | US ---
Date of service: 10/09/2018 HISTORY: testicular tenderness This study is presented to me for interpretation on 10/10/2018. Which side patient's pain, or if it is pain in both sides is on is not specified. TECHNIQUE: Realtime sonography through the scrotum with color and doppler flow. COMPARISON: None Available. FINDINGS: RIGHT TESTICLE: Measures 3.9 x 1.4 x 2.3 cm. Echotexture is homogeneous. There is flow depicted scattered throughout the right testicle on series 1, image 20 RIGHT EPIDIDYMIS: Epididymal head measures 1.2 x 0.7 x 1.2 cm. Grossly unremarkable appearance with normal flow. LEFT TESTICLE: Measures 4.0 x 1.4 x 2.2 cm. Echotexture is mildly heterogeneous. On the images demonstrated there is flow present mostly in throughout the posterior 1/2 of the left sagittal testicular plane overseas series 1, image 50; this is less home or [place] is and diffuse than that depicted on the available presented images of the right testicle a similar sagittal plane. The clinical significance of this, if any is unclear. Lesser flow to a portion of the anterior testicle cannot be excluded in this 68-year-old patient. Clinical correlation with patient's symptomatology is advised. LEFT EPIDIDYMIS: Epididymal head measures 1.6 x 0.8 x 1.5 cm. Two epididymal head cysts are present 1 measures 10 x 5 x 9 mm another measures 6 x 2 x 3 mm. With normal flow. HYDROCELE: No significant appearing hydrocele noted. VARICOCELE: None. OTHER FINDINGS: None. IMPRESSION: Mild heterogeneity to the left testicular echotexture without any definitive focal mass identified. This echotexture and depicted images with flow show the left testicle having less anterior 1/2 vascular flow compared to the more posterior left testicle and also compared to the right testicle per sagittal images. The close clinical significance of this appearance, if any-is unclear. Clinical correlation and close clinical follow-up is advised. Needed consider rechecking with interval short-term follow-up scrotal ultrasound within 5 to 7 days. This appearance is not mention on the preliminary [place] [facility] report. As mention the significance of this appearance-if any is unclear. Close clinical follow-up and if needed short interval follow-up scrotal ultrasound imaging with Doppler evaluation is advised. Left epididymal head cysts as above.
[2018-10-10] MEDS ORDERED: Lidocaine 2% Jelly (30 ml) TOP ONE (14:36)
[2018-10-10] MEDS ORDERED: Lactated Ringer's 500 ML IV ONE (14:42)
--- NOTE | 2018-10-10 15:06 | CP.PCM.PN ---
Subjective - Date & Time of Evaluation Date of Evaluation: 10/10/18 Time of Evaluation: 15:00 - Subjective Subjective: Hem/Onc eval Patient was not in his room today and is currently undergoing endoscopy to evaluate for colonic mass. Upon review of the labs and history, patient likely has malignant mass which is being evaluated with colonoscopy. Agree with surgical evaluation, would obtain a CT chest/abd/pelvis to rule out any other pathology. Transfuse as clinically indicated. Will follow up for official consult tomorrow. Sincerely, Joe Lizarraga Objective - Vital Signs/Intake and Output Vital Signs (last 24 hours): Temp Pulse Resp BP Pulse Ox 99 F 102 H 20 135/77 100 10/10/18 08:10 10/10/18 08:10 10/10/18 08:10 10/10/18 08:10 10/10/18 08:10 Intake and Output: 10/10/18 10/10/18 06:59 18:59 Intake Total 1025 875 Balance 1025 875 - Medications Medications: Current Medications Acetaminophen (Tylenol 325mg Tab) 650 mg PO Q6 PRN PRN Reason: Pain, Mild (1-3) Famotidine (Pepcid) 20 mg IVP Q12 [facility] Last Admin: 10/10/18 11:24 Dose: Not Given Sodium Chloride (Sodium Chloride 0.9%) 1,000 mls @ 125 mls/hr IV .Q8H [facility] Last Admin: 10/10/18 13:35 Dose: Not Given Metronidazole (Flagyl) 500 mg in 100 mls @ 100 mls/hr IVPB Q8H [facility]; Protocol Last Admin: 10/10/18 07:56 Dose: 100 mls/hr Piperacillin Sod/Tazobactam Sod (Zosyn 3.375 Gm Iv Premix) 3.375 gm in 50 mls @ 100 mls/hr IVPB Q6H [facility]; Protocol Last Admin: 10/10/18 13:27 Dose: 100 mls/hr Lidocaine (Lidocaine 5%) 1 gm TOP ONCE ONE Stop: 10/10/18 15:31 Pneumococcal Polyvalent Vaccine (Pneumovax 23 Vaccine) 0.5 ml IM .ONCE ONE Stop: 10/11/18 10:01 - Labs Labs: 10/10/18 07:51 10/10/18 07:51 PT 13.4 SECONDS (9.7-12.2) H 10/09/18 08:40 INR 1.2 10/09/18 08:40 APTT 28.5 SECONDS (21-34) 10/09/18 08:40
[2018-10-10] MEDS ORDERED: Lidocaine 5% Oint(35 gm) TOP ONE (15:30)
[2018-10-10] MEDS ORDERED: Iohexol 300 100 ML IJ ONE (18:18)
[2018-10-10] MEDS: Erythromycin Base 500 mg Tab PO SCH ×2 (18:55→18:56)
[2018-10-11] MEDS: Piperacill/Tazo 3.375gm in Dex 3.375 GM/50 ML BAG IVPB SCH ×4 (02:00→20:35)
[2018-10-11] MEDS ORDERED: Erythromycin Base 500 mg Tab PO ONE (02:00)
[2018-10-11 05:06] LABS: BASO % 0.3 % (0.0-2.0); EOS % 0.2 % (0.0-4.0); HEMOGLOBIN 8.5 g/dL (12.0-18.0); LYMPH % 15.3 % (20.0-40.0); MEAN CELL VOLUME 72.3 fL (80.0-94.0); MEAN CORPUSCULAR HEMOGLOBIN 22.8 pg (27.0-31.0); MEAN CORPUSCULAR HGB CONC 31.6 g/dL (33.0-37.0); MEAN PLATELET VOLUME 7.8 fL (7.2-11.7); MONO # 0.7 K/uL (0.0-0.8); MONO % 5.2 % (0.0-10.0); NEUT # 10.5 K/uL (1.8-7.0); RBC 3.72 Mil/uL (4.40-5.90); WHITE BLOOD COUNT 13.3 K/uL (4.8-10.8)
[2018-10-11 05:10] LABS: INR 1.7; PROTHROMBIN TIME 18.1 SECONDS (9.7-12.2)
[2018-10-11 06:06] LABS: ALB/GLOB RATIO 0.8 (1.0-2.1); ALBUMIN 2.8 g/dL (3.5-5.0); ALT/SGPT 21 U/L (21-72); AST/SGOT 13 U/L (17-59); BLOOD UREA NITROGEN 6 mg/dL (9-20); CALCIUM 8.4 mg/dl (8.6-10.4); GFR NON-AFRICAN AMERICAN > 60
--- NOTE | 2018-10-11 06:59 | CP.PCM.PN ---
<Rizwan Rosaa - Last Filed: 10/11/18 15:27> Subjective - Date & Time of Evaluation Date of Evaluation: 10/11/18 Time of Evaluation: 09:00 - Subjective Subjective: Medicine Progress Note for Dr. Calle, Hospitalist Service Pt seen and examined at bedside this am. NPO for OR today for stent placement and resection of sigmoid mass. No acute complaints this am. Denies fever, chills, chest pain, sob, n/v, abd pain, or other symptoms. Objective - Vital Signs/Intake and Output Vital Signs (last 24 hours): Temp Pulse Resp BP Pulse Ox 98.4 F 90 20 144/75 97 10/11/18 06:00 10/11/18 06:00 10/11/18 06:00 10/11/18 06:00 10/11/18 06:00 Intake and Output: 10/10/18 10/11/18 18:59 06:59 Intake Total 875 965 Balance 875 965 - Medications Medications: Current Medications Acetaminophen (Tylenol 325mg Tab) 650 mg PO Q6 PRN PRN Reason: Pain, Mild (1-3) Famotidine (Pepcid) 20 mg IVP Q12 [facility] Last Admin: 10/10/18 21:19 Dose: 20 mg Sodium Chloride (Sodium Chloride 0.9%) 1,000 mls @ 125 mls/hr IV .Q8H [facility] Last Admin: 10/10/18 21:19 Dose: 125 mls/hr Piperacillin Sod/Tazobactam Sod (Zosyn 3.375 Gm Iv Premix) 3.375 gm in 50 mls @ 100 mls/hr IVPB Q6H [facility]; Protocol Last Admin: 10/11/18 02:00 Dose: 100 mls/hr Potassium Chloride (Potassium Chloride 20 Meq/100 Ml) 20 meq in 100 mls @ 50 mls/hr IVPB ONCE ONE Stop: 10/11/18 08:51 Morphine Sulfate (Morphine) 1 mg IVP Q4 PRN PRN Reason: Pain, severe (8-10) Pneumococcal Polyvalent Vaccine (Pneumovax 23 Vaccine) 0.5 ml IM .ONCE ONE Stop: 10/11/18 10:01 - Labs Labs: 10/11/18 05:01 10/11/18 05:01 PT 18.1 SECONDS (9.7-12.2) H 10/11/18 05:01 INR 1.7 D 10/11/18 05:01 APTT 31.0 SECONDS (21-34) 10/11/18 05:01 - Constitutional Appears: Non-toxic, No Acute Distress - Head Exam Head Exam: ATRAUMATIC, NORMOCEPHALIC - Eye Exam Eye Exam: EOMI, Normal appearance, PERRL - ENT Exam ENT Exam: Mucous Membranes Moist - Respiratory Exam Respiratory Exam: Clear to Ausculation Bilateral, NORMAL BREATHING PATTERN. absent: Rales, Rhonchi, Wheezes - Cardiovascular Exam Cardiovascular Exam: REGULAR RHYTHM, +S1, +S2. absent: Gallop, Rubs, Murmur - GI/Abdominal Exam GI & Abdominal Exam: Soft. absent: Distended, Tenderness, Organomegaly, Rebound - Extremities Exam Extremities Exam: Full ROM, Normal Capillary Refill, Normal Inspection. 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 Associated invasion of the urinary bladder with suspicion for a colovesicular fistula. 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 -NPO for OR today for removal of sigmoid mass, will monitor post-op -CEA, CA 19-9 wnl Leukocytosis, SIRS -Leukocytosis this am; tachycardia resolved today, cont to trend -Blood cultures NG x 48 hrs -Urine cultures - f/u -Stool studies (stool leukocytes, fecal occult, cultures) - negative -Procal neg -Zosyn/Flagyl -LR @ 125cc/hr Anemia, Elevated INR -Hgb 9.7 on admission, down from 10.2 on ED visit 10/08 -Microcytic, possible 2/2 GI bleed from colonic mass -Iron studies demonstrate iron-deficiency anemia -Cont to trend H/H -Pepcid 20 mg IVP bid -INR 1.7 today -To be transfused 2 FFP and 1 unit PRBC for procedure today -Dr. Lizarraga consulted, Heme/Onc; recommends transfuse prn, would benefit from IV Venofer 200 mg IVPB x 3 doses BRBPR -GI consulted, Dr. Kuhn, recs appreciated -Stool occult positive for blood -F/u tissue path results from flexible sigmoidoscopy on 10/10/18 -OR today for removal of sigmoid mass Hypokalemia -Repleted this am, cont to monitor Dysuria, hematuria 2/2 fistula -Urology consulted, Dr. Jabari Charles, recs appreciated -U/a positive for UTI, f/u urine cx results -Zosyn/Flagyl -Testicular U/s done due to pt c/o testicular pain on day of admission, denies pain in area currently -Testicular U/s: Mild heterogeneity to the L testicular echotexture without any definitive focal mass identified. This echotexture and depicted images with flow show the L testicule having less anterior 1/2 vascular flow compared to the R testicle per sagittal images. The close clinical significance of this appearance, if any - is unclear. L epididymal head cysts. -OR today for stent placement with Dr. Charles Pulmonary Nodule on CXR -CXR 10/09: No acute findings identified. 6 mm probable calcified nodule, left mid lung zone. 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 Calle, attending physician. Polo Rosa DO PGY-1, Box Storage Worker Pager #[phone] <Libby Calle V - Last Filed: 10/11/18 17:08> Objective - Vital Signs/Intake and Output Vital Signs (last 24 hours): Temp Pulse Resp BP Pulse Ox 97.8 F 85 16 164/94 H 100 10/11/18 10:30 10/11/18 10:30 10/11/18 10:30 10/11/18 10:30 10/11/18 10:30 Intake and Output: 10/11/18 10/11/18 06:59 18:59 Intake Total 965 1536 Output Total 600 Balance 965 936 - Medications Medications: Current Medications Acetaminophen (Tylenol 325mg Tab) 650 mg PO Q6 PRN PRN Reason: Pain, Mild (1-3) Famotidine (Pepcid) 20 mg IVP Q12 [facility] Last Admin: 10/11/18 10:05 Dose: Not Given Sodium Chloride (Sodium Chloride 0.9%) 1,000 mls @ 125 mls/hr IV .Q8H [facility] Last Admin: 10/11/18 14:11 Dose: Not Given Piperacillin Sod/Tazobactam Sod (Zosyn 3.375 Gm Iv Premix) 3.375 gm in 50 mls @ 100 mls/hr IVPB Q6H [facility]; Protocol Last Admin: 10/11/18 13:01 Dose: 100 mls/hr BUPIVACAINE 0.125%/0.9% NACL (Bupivacaine-Ns 0.125% On-Q Lining Cementer) 600 mls @ 4 mls/hr IJ ONCE ONE Stop: 10/17/18 21:16 Morphine Sulfate (Morphine) 1 mg IVP Q4 PRN PRN Reason: Pain, severe (8-10) Pneumococcal Polyvalent Vaccine (Pneumovax 23 Vaccine) 0.5 ml IM .ONCE ONE Stop: 10/13/18 10:01 - Labs Labs: 10/11/18 05:01 10/11/18 05:01 PT 18.1 SECONDS (9.7-12.2) H 10/11/18 05:01 INR 1.7 D 10/11/18 05:01 APTT 31.0 SECONDS (21-34) 10/11/18 05:01 Attending/Attestation - Attestation I have personally seen and examined this patient.: Yes I have fully participated in the care of the patient.: Yes I have reviewed all pertinent clinical information, including history, physical exam and plan: Yes Notes (Text): Patient seen, examined case discussed with adjunct faculty for medical terminology. Patient seen in recovery following the stent placement with Dr. Segura. Patient awake alert oriented does complain of pain noted elevated blood pressure at bedside likely secondary to pain I did remind patient that he can ask for pain medication he is undergoing 2 surgeries today he has been initially hesitant but will will allow them to give pain medication. I did initially put in for vitamin K however it will not be effective for surgery later today anesthesia Dr. Gan spoke with Dr. Liu for an order of FFP. Patient seen again prior to second surgery with general with the general surgery team. In the interim did receive 1 unit of FFP and will also receive a second unit of FFP and 1 unit of PRBC in the OR. Patient is planned for sigmoid resection and takedown of colovesicular today. I also did speak with pathologist Dr. Tiffany Dorado in regards to the sample taken from the sigmoidoscopy yesterday appears superficial did not appear as cancer breast possible but insufficient sample was not taken. We will follow-up with the samples taken from surgery today. Blood cultures remain negative. Patient is typed and crossed 2 units of PRBC waiting for 4 OR if needed. Reviewed EKG noted for sinus tachycardic be attributed to to pain. Patient does not have any heart history or smoking history.. Patient medically optimized prior to both procedures. Insert preoperative/intraoperative/postoperative management per surgery teams. Surgery ICU to discuss risk and benefits of procedure prior. Heme-onc evaluated patient noted no known medicine CT chest either. 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 Kuhn) home economics extension worker help appreciated * General surgery (Dr. Lozada) home economics extension worker help appreciated * CT A/P w/ IV and PO contrast 10/08: 11 x 8 x 6 mm complex cystic mass in sigmoid colon compatible malignancy., demonstrating solid and cystic chronic components. Associated invasion of the urinary bladder with suspicion for a colovesical fistula * IV Abx: Zosyn 3.375 g IV Q6h (started 10/09/18) and Flagyl 500 mg IV Q8h (started 10/09/18) * Patient underwent sigmoidoscopy 10/10--> f/u pathology * Patient underwent urethral stent placement in the morning 10/11 with urologist; will f/u operative note * Patient scheduled for sigmoid resection and take down of colo-fistula with general surgery team this afternoon will f/u pathology and operative note Leukocytosis, SIRS Assessment/Plan * Blood cultures: negative for 48 hours * Pending urine culture * Stool sample: no salmonella, no shigella, no camplyobacter * Procalcitonin <0.05 * IV Abx: Zosyn 3.375 g IV Q6h (started 10/09/18) and Flagyl 500 mg IV Q8h (started 10/09/18) Anemia, Acute Assessment/Plan * Hgb 9.7 on admission, down from 10.2 on ED visit 10/08 * downtrending * Microcytic, possible 2/2 GI bleed from colonic mass * Iron studies demonstrate iron-deficiency anemia * Cont to trend H/H * Pepcid 20 mg IVP bid * type and cross 2 units of PRBC to ready if needed BRBPR Assessment/Plan * GI consulted, katina Nails appreciated * Stool occult positive for blood * patient underwent sigmoidoscopy 10/10-->f/u official path report Hypokalemia * Resolved, cont to monitor Dysuria, hematuria 2/2 fistula * Urology consulted, katina Quiñones appreciated * U/a positive for UTI, f/u urine * IV Abx: Zosyn 3.375 g IV Q6h (started 10/09/18) and Flagyl 500 mg IV Q8h (st arted 10/09/18) * Testicular U/s done due to pt c/o testicular sherice on admission, noting pain resolved Pulmonary Nodule on CXR * CXR 10/09: No acute findings identified. 6 mm probable calcified nodule, left mid lung zone. 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 preop/intraop/postop per surgery teams. Patient is medically optimized prior to procedure. type and cross 2 units of PRBC. surgery and anesthesia to discuss risk and benefits prior to procedure. Patient's children are in college in [place]; patient's friend Myra (male) is in the area if needed to contact.
[2018-10-11] MEDS ORDERED: Propofol 10 mg/ml Inj (20 ML) ONE ×2 (07:08→13:57)
[2018-10-11] MEDS ORDERED: Lidocaine Hydrochloride 5 ML INJ ONE (07:08)
[2018-10-11] MEDS ORDERED: cefTRIAXone 1 gm 0 GM/0 ML BAG IVPB ONE (07:39)
[2018-10-11] MEDS ORDERED: Iohexol 240 (50 ml) ONE (07:39)
[2018-10-11] MEDS ORDERED: Piperacillin/Tazobact 3.375 gm 100 ML IVPB ONE (07:45)
[2018-10-11] MEDS ORDERED: Phytonadione 10 mg/ml Inj (Adult) SC ONE ×2 (09:30→12:15)
--- NOTE | 2018-10-11 09:39 | CP.PCM.CON ---
History of Present Illness - History of Present Illness History of Present Illness: HEMONC CONSULT NOTE 68 year old male with no significant PMHx who is admitted for abdominal pain, diarrhea, and urinary frequency and urgency due to his colonic mass. He states that this began a few months ago cannot recall exactly with progressive abdominal pain. He also states that he has changes in his bowel habits and has fecal matter in his urine. He complains of decreased appetite and 20lbs loss over the last two month. Currently he complains of his left lower quadrant pain which is exacerbated with movement. He deneis any chest pain, shortness of breath, fevers, chills, nausea, vomiting, lower extremity pain or other comp laints. No prior EGD/Colonoscopy until yesterday. Today seen in the PACU post cystoscopy and will be undergoing hemicolectomy later today. ROS: A 12pt ROS was negative except as above. PMHx: As stated in HPI PSHx: No surgeries Family hx: No known family hx of Colon CA Social history: Never smoked. Denies alcohol or drug use. 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 Originally from [place]. Review of Systems - Constitutional Constitutional: As Per HPI - EENT Eyes: As Per HPI Ears: As Per HPI Nose/Mouth/Throat: As Per HPI - Cardiovascular Cardiovascular: As Per HPI - Respiratory Respiratory: As Per HPI - Gastrointestinal Gastrointestinal: As Per HPI - Genitourinary Genitourinary: As Per HPI - Reproductive: Male Reproductive:Male: As Per HPI - Musculoskeletal Musculoskeletal: As Per HPI - Neurological Neurological: As Per HPI - Psychiatric Psychiatric: As Per HPI - Endocrine Endocrine: As Per HPI - Hematologic/Lymphatic Hematologic: As Per HPI Past Patient History - Past Medical History & Family History Past Medical History?: No - Past Social History Smoking Status: Never Smoked - MUSCULOSKELETAL/RHEUMATOLOGICAL Hx Falls: No - PSYCHIATRIC Hx Substance Use: No - SURGICAL HISTORY Hx Surgeries: No - ANESTHESIA Hx Anesthesia: No Meds Allergies/Adverse Reactions: Allergies Allergy/AdvReac Type Severity Reaction Status Date / Time No Known Allergies Allergy Verified 10/09/18 08:13 - Medications Medications: Current Medications Acetaminophen (Tylenol 325mg Tab) 650 mg PO Q6 PRN PRN Reason: Pain, Mild (1-3) Famotidine (Pepcid) 20 mg IVP Q12 KIAN Last Admin: 10/10/18 21:19 Dose: 20 mg Sodium Chloride (Sodium Chloride 0.9%) 1,000 mls @ 125 mls/hr IV .Q8H [facility] Last Admin: 10/10/18 21:19 Dose: 125 mls/hr Piperacillin Sod/Tazobactam Sod (Zosyn 3.375 Gm Iv Premix) 3.375 gm in 50 mls @ 100 mls/hr IVPB Q6H KIAN; Protocol Last Admin: 10/11/18 02:00 Dose: 100 mls/hr Morphine Sulfate (Morphine) 1 mg IVP Q4 PRN PRN Reason: Pain, severe (8-10) Phytonadione (Vitamin K Inj) 10 mg SC ONCE ONE Stop: 10/11/18 09:31 Pneumococcal Polyvalent Vaccine (Pneumovax 23 Vaccine) 0.5 ml IM .ONCE ONE Stop: 10/11/18 10:01 Physical Exam - Constitutional Appears: Well, Non-toxic, No Acute Distress - Head Exam Head Exam: ATRAUMATIC, NORMAL INSPECTION, NORMOCEPHALIC - Eye Exam Eye Exam: EOMI, Normal appearance, PERRL Pupil Exam: NORMAL ACCOMODATION - ENT Exam ENT Exam: Mucous Membranes Moist - Neck Exam Neck exam: Positive for: Full Rom - Respiratory Exam Respiratory Exam: Clear to Auscultation Bilateral. absent: Chest Wall Tenderness, Rales, Wheezes - Cardiovascular Exam Cardiovascular Exam: REGULAR RHYTHM, +S1, +S2 - GI/Abdominal Exam GI & Abdominal Exam: Mass, Normal Bowel Sounds, Tenderness Additional comments: LLQ tenderness - Rectal Exam Rectal Exam: Deferred - Extremities Exam Extremities exam: Positive for: full ROM - Back Exam Back exam: NORMAL INSPECTION - Neurological Exam Neurological exam: Alert, CN II-XII Intact, Oriented x3 - Skin Skin Exam: Normal Color, Warm Results - Vital Signs Recent Vital Signs: Last Vital Signs Temp 98.4 F 10/11/18 06:00 Pulse 90 10/11/18 06:00 Resp 20 10/11/18 06:00 BP 144/75 10/11/18 06:00 Pulse Ox 97 10/11/18 06:00 - Labs Result Diagrams: 10/11/18 05:01 10/11/18 05:01 Labs: Laboratory Results - last 24 hr 10/11/18 10/11/18 10/11/18 05:01 05:01 05:01 WBC 13.3 H RBC 3.72 L Hgb 8.5 L Hct 26.9 L MCV 72.3 L MCH 22.8 L MCHC 31.6 L RDW 17.0 H Plt Count 608 H MPV 7.8 Neut % (Auto) 79.0 H Lymph % (Auto) 15.3 L [place] % (Auto) 5.2 Eos % (Auto) 0.2 Baso % (Auto) 0.3 Neut # (Auto) 10.5 H Lymph # (Auto) 2.0 [place] # (Auto) 0.7 Eos # (Auto) 0.0 Baso # (Auto) 0.0 PT 18.1 H INR 1.7 D APTT 31.0 Sodium 136 Potassium 3.5 L Chloride 102 Carbon Dioxide 25 Anion Gap 13 BUN 6 L Creatinine 1.0 Est GFR ( Amer) > 60 Est GFR (Non-Af Amer) > 60 Random Glucose 109 D Calcium 8.4 L Phosphorus 4.0 Magnesium 1.9 Total Bilirubin 0.5 AST 13 L D ALT 21 Alkaline Phosphatase 45 Total Protein 6.2 L Albumin 2.8 L Globulin 3.4 Albumin/Globulin Ratio 0.8 L Carcinoembryonic Ag 3.0 CA 19-9 Antigen < 1.4 Blood Type Antibody Screen 10/11/18 05:14 WBC RBC Hgb Hct MCV MCH MCHC RDW Plt Count MPV Neut % (Auto) Lymph % (Auto) [place] % (Auto) Eos % (Auto) Baso % (Auto) Neut # (Auto) Lymph # (Auto) [place] # (Auto) Eos # (Auto) Baso # (Auto) PT INR APTT Sodium Potassium Chloride Carbon Dioxide Anion Gap BUN Creatinine Est GFR ( Amer) Est GFR (Non-Af Amer) Random Glucose Calcium Phosphorus Magnesium Total Bilirubin AST ALT Alkaline Phosphatase Total Protein Albumin Globulin Albumin/Globulin Ratio Carcinoembryonic Ag CA 19-9 Antigen Blood Type A POSITIVE Antibody Screen Negative Assessment & Plan - Assessment and Plan (Free Text) Assessment: 68 year old male patient with a sigmoid mass with invasion to the bladder with 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 Anemia is due to chronic blood loss due to colonic mass. Images reviewed and no radiological findings of distant spread at this time, will await for final pathology to determine staging. 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 Plan Transfuse as clinically indicated Would benefit from Venofer 200mg IVPB x 3 doses Adequate pain control Monitor CBC and CMP Replete electrolytes as needed Will follow up after final pathology is available which will determine further adjuvant treatment. Thank you for allowing me to partake in your patients care. Sincerely, Joe Lizarraga
[2018-10-11] MEDS ORDERED: HYDROmorphone 0.5 mg/0.5 ml ISec IVP PRN (09:47)
[2018-10-11] MEDS ORDERED: Labetalol 5mg/ml (4ml) IVP ONE (09:48)
[2018-10-11] MEDS ORDERED: Pneumococcal 23-Valent Vaccine IM ONE (10:00)
--- NOTE | 2018-10-11 12:46 | CT ---
Date of service: 10/10/2018 PROCEDURE: CT Chest with contrast HISTORY: hx sigmoid mass, for staging COMPARISON: None available. TECHNIQUE: Contiguous axial images were obtained through the chest with intravenous contrast enhancement. Sagittal and coronal reconstructions were performed. IV contrast: Radiation dose: Total exam DLP = 311.91 mGy-cm. This CT exam was performed using one or more of the following dose reduction techniques: Automated exposure control, adjustment of the mA and/or kV according to patient size, and/or use of iterative reconstruction technique. FINDINGS: LUNGS: 1 centimeter calcified granuloma in the left lower lobe. MEDIASTINUM: Unremarkable thoracic aorta. No aneurysm or dissection. Normal sized heart. Main pulmonary artery unremarkable. No vascular congestion. Calcified subcarinal lymph node. No aortic atherosclerotic calcification or mural plaque present. PLEURA: No pleural fluid. No pneumothorax. BONES: No fracture. No destructive lesion. UPPER ABDOMEN: Grossly unremarkable. OTHER FINDINGS: None. 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
[2018-10-11] MEDS ORDERED: Midazolam 2 MG/2 ML VIAL ONE (13:57)
[2018-10-11] MEDS ORDERED: Rocuronium 10 mg/ml (5 ml) ONE ×2 (13:58→16:22)
[2018-10-11] MEDS ORDERED: metroNIDAZOLE IV 500 mg/100 ml 500 MG/100 ML BAG ONE (14:09)
[2018-10-11] MEDS ORDERED: Lidocaine/Epinephrine 1% 1:100000 10 ML IJ ONE (14:09)
[2018-10-11] MEDS: Sodium Chloride 0.9% 1,000 ML IV SCH ×2 (14:11→22:25)
[2018-10-11] MEDS ORDERED: Methylene Blue 10 mg/mL(10ml) IV ONE (15:01)
[2018-10-11] MEDS ORDERED: BUPIVACAINE 0.125%/0.9% NACL 600 ML IJ ONE (15:17)
--- NOTE | 2018-10-11 15:18 | RAD ---
Date of service: 10/11/2018 HISTORY: COLON MASS COMPARISON: CT of the abdomen pelvis with contrast performed 10/08/18 TECHNIQUE: 1 view obtained. FINDINGS: BOWEL: Nonobstructive bowel gas pattern. Diverticulosis. BONES: No acute osseous abnormality is detected. OTHER FINDINGS: Large somewhat ovoid contrast filled structure within the pelvis extending into the right abdomen consistent with contrast within a distended abnormal urinary bladder. IMPRESSION: Large somewhat ovoid contrast filled structure within the pelvis extending into the right abdomen consistent with contrast within a distended abnormal urinary bladder.
[2018-10-11] MEDS: Bupivacaine HCl 0.5% PF (10 ml) Inj ONE ×2 (17:24→17:59)
[2018-10-11] MEDS ORDERED: Neostigmine 1:1000 (1 mg/ml) Inj ONE (18:46)
[2018-10-11] MEDS ORDERED: Lactated Ringer's 1,000 ML IV ONE (19:05)
--- NOTE | 2018-10-11 19:11 | PCM.SURG1 ---
Surgeon's Initial Post Op Note - Surgeon's Notes Surgeon: Dr. Lozada Front End Loader Driver: Rui PGY2; PGY2; Semaj PGY2 Type of Anesthesia: General Endo Anesthesia Administered By: Dr. Ward Pre-Operative Diagnosis: Rectosigmoid mass. Colovesicular Fistula Operative Findings: See operative report Post-Operative Diagnosis: Same Operation Performed: Exploratory Laparotomy, Rectosigmoid Mass Resection, End Sigmoid Colostomy Creation, Omentopexy, Placement of On-Q Cathters Specimen/Specimens Removed: Rectosigmoid Mass; Abdominal Abscess culture Estimated Blood Loss: EBL {In ML}: 300 Blood Products Given: PRBC (1U PRBC), FFP (1U FFP) Drains Used: Davin Post-Op Condition: Good Date of Surgery/Procedure: 10/11/18 Time of Surgery/Procedure: 19:12
[2018-10-11] MEDS: HYDROmorphone 0.5 mg/0.5 ml ISec IVP PRN ×2 (19:40→20:20)
[2018-10-11 19:42] LABS: BASO # 0.1 K/uL (0.0-0.2); BASO % 0.4 % (0.0-2.0); EOS % 0.1 % (0.0-4.0); HEMOGLOBIN 10.3 g/dL (12.0-18.0); LYMPH # 2.3 K/uL (1.0-4.3); MEAN CELL VOLUME 75.3 fL (80.0-94.0); MEAN CORPUSCULAR HEMOGLOBIN 23.7 pg (27.0-31.0); MEAN CORPUSCULAR HGB CONC 31.5 g/dL (33.0-37.0); MEAN PLATELET VOLUME 7.6 fL (7.2-11.7); MONO # 0.9 K/uL (0.0-0.8); MONO % 4.9 % (0.0-10.0); NEUT # 14.3 K/uL (1.8-7.0); NEUT % 81.6 % (50.0-75.0); RBC 4.33 Mil/uL (4.40-5.90); RED CELL DISTRIBUTION WIDTH 17.8 % (11.5-14.5); WHITE BLOOD COUNT 17.6 K/uL (4.8-10.8)
[2018-10-11 19:54] LABS: INR 1.4; PARTIAL THROMBOPLASTIN TIME 26.8 SECONDS (21-34)
[2018-10-11 20:02] LABS: ALB/GLOB RATIO 1.2 (1.0-2.1); ALBUMIN 3.3 g/dL (3.5-5.0); ALT/SGPT 18 U/L (21-72); AST/SGOT 29 U/L (17-59); BLOOD UREA NITROGEN 6 mg/dL (9-20); CALCIUM 8.1 mg/dl (8.6-10.4); GFR NON-AFRICAN AMERICAN > 60
[2018-10-12] MEDS: Aritificial Tears (15ml) OU SCH ×3 (00:50→17:39)
[2018-10-12] MEDS: Piperacill/Tazo 3.375gm in Dex 3.375 GM/50 ML BAG IVPB SCH ×4 (02:39→20:52)
[2018-10-12] MEDS: HYDROmorphone 0.5 mg/0.5 ml ISec IVP PRN ×3 (02:40→14:07)
[2018-10-12] MEDS: Sodium Chloride 0.9% 1,000 ML IV SCH ×4 (02:45→22:56)
--- NOTE | 2018-10-12 06:15 | OP ---
PROCEDURE DATE: 10/11/2018 PREOPERATIVE DIAGNOSIS: Colovesical fistula. POSTOPERATIVE DIAGNOSIS: Colovesical fistula. PROCEDURES: Cystoscopy, bilateral retrograde pyelogram, cystogram, and insertion of Watters catheter. SURGEON: Yobany Charles MD COMPLICATIONS: There were no complications. ESTIMATED BLOOD LOSS: Less than 10 mL. INDICATIONS: See the indications in history and physical and consultation. This is a pleasant gentlemen who comes for surgical resection today. See the history and physical and consultation note, we were asked to placed stents before. I do want to mention that 2 double-J stents left and right in good location and also the Watters catheter what we put in a 10 mL balloon, give it out 30 mL. DESCRIPTION OF PROCEDURE: After obtaining informed consent, the patient was placed on the table. Routine monitors were placed. Time-out was called. We confirmed the patient and positioning. The patient is on Zosyn. Cystoscope introduced via urethra and entered to about 3 cm. The ureteral orifice was very difficult to identify. See the pictures on the chart. There was a lot of debris in the bladder. Multiple lesions noted. No biopsies are taken at this point. I am going to leave this to the general surgeon. However, with a little effort and work and gentle probing, we were able to identify the ureteral orifice and passed a wire and put open-ended and inject contrast. We did bilateral retrograde pyelograms, and once we did this, we were able to put double-J stent in both left and right side. We confirmed our positioning under fluoroscopic imaging. The procedure continues with the Watters insertion by urethra using a 20-Yakut catheter. We put about 30 mL in the balloon. We injected some contrast, confirmed confirmation and conditioning. We put a little air in the balloon and right up to the bladder. This should appear to next stage in surgical resection. The patient tolerated the procedure well without complications. As well, I had a direct conversation with Dr. Ferguson regarding further care and asked me to see for surgical resection of the colonic region. Urology is available as well for a surgical repair as needed. We let double-J indwelling stents, I believe the patient would be better if he stood for a while he's healing and at some point then, as I mentioned to the patient before, we need cystoscopy. Yobany Charles MD [facility] # [id number]
--- NOTE | 2018-10-12 06:23 | CON ---
DATE: 10/11/2018 REASON FOR THE CONSULTATION: Colorectal fistula. HISTORY OF PRESENT ILLNESS: The patient is a gentleman who has not been seen recently by a physician, comes to the hospital. At this point, urology was consulted. We already have the diagnoses. The patient already had endoscopy and thus the patient is scheduled for surgery and we are being asked to place a stent for ureteral protection and also as a resection of the bladder. See below the plan. Past medical and surgical all listed on the chart. Nothing else from urology standpoint. Significant voiding dysfunction, weakness, generalized healthcare issues. MEDICATIONS: See chart. ALLERGIES: As listed on the chart. PHYSICAL EXAMINATION: GENERAL: A thin male, currently resting comfortable in bed. There is no gross distention. DIAGNOSES: Colorectal fistula. The patient had endoscopy today. I think the pathology report currently pending, I don't think they were section . From the Urology standpoint, he is undergoing a surgical resection tomorrow with Dr. Lozada. We had a discussion about the possibilities. the different options of treatment from urology standpoint. multiple place stents at this point. So we are going to make arrangements to do so as early as possible. We will discuss the options, timing, etc. So from urology standpoint: 1. Maintain the current antibiotic regimen. 2. The patient is preop for general surgery by Dr. Lozada. 3. From the Urology standpoint, we will do a cysto and stent insertion and then further plans will follow. ADDENDUM: See the operative note, we were able to put bilateral stents and an indwelling Watters catheter. We will follow just to remind the patient, I discussed with him before that we are going to put an indwelling and then eventually he will need a surgical removal. We will make sure that he has a followup . Yobany Charles MD
--- NOTE | 2018-10-12 07:28 | CP.PCM.PN ---
Subjective - Date & Time of Evaluation Date of Evaluation: 10/12/18 Time of Evaluation: 07:28 - Subjective Subjective: Resident Progress Note for Hospitalist Service Patient examined out of bed to chair. Patient is POD #1 s/p laparotomy with rectosigmoid mass resection with colostomy. Admits to moderate left sided abdominal pain. Denies fevers, chills, nausea, vomiting, chest pain, shortness of breath. Has not had passed flatus or bowel movement. Objective - Vital Signs/Intake and Output Vital Signs (last 24 hours): Temp Pulse Resp BP Pulse Ox 97.7 F 89 20 157/88 H 100 10/11/18 23:25 10/11/18 23:25 10/11/18 23:25 10/11/18 23:25 10/11/18 23:25 Intake and Output: 10/12/18 10/12/18 06:59 18:59 Intake Total 400 Output Total 1295 Balance -895 - Medications Medications: Current Medications Artificial Tears (Artificial Tears) 1 ml OU BID KIAN Last Admin: 10/12/18 00:50 Dose: 1 drop Famotidine (Pepcid) 20 mg IVP Q12 KIAN Last Admin: 10/11/18 22:25 Dose: 20 mg Hydromorphone HCl (Dilaudid) 0.5 mg IVP Q3H PRN PRN Reason: Pain, severe (8-10) Last Admin: 10/12/18 02:40 Dose: 0.5 mg Sodium Chloride (Sodium Chloride 0.9%) 1,000 mls @ 125 mls/hr IV .Q8H KIAN Last Admin: 10/12/18 02:45 Dose: 125 mls/hr Piperacillin Sod/Tazobactam Sod (Zosyn 3.375 Gm Iv Premix) 3.375 gm in 50 mls @ 100 mls/hr IVPB Q6H KIAN; Protocol Last Admin: 10/12/18 02:39 Dose: 100 mls/hr BUPIVACAINE 0.125%/0.9% NACL (Bupivacaine-Ns 0.125% On-Q Multimedia Technician) 600 mls @ 4 mls/hr IJ ONCE ONE Stop: 10/17/18 21:16 Pneumococcal Polyvalent Vaccine (Pneumovax 23 Vaccine) 0.5 ml IM .ONCE ONE Stop: 10/13/18 10:01 - Labs Labs: 10/11/18 19:35 10/11/18 19:35 PT 15.0 SECONDS (9.7-12.2) H 10/11/18 19:35 INR 1.4 10/11/18 19:35 APTT 26.8 SECONDS (21-34) 10/11/18 19:35 - Constitutional Appears: Non-toxic, No Acute Distress - Head Exam Head Exam: ATRAUMATIC, NORMOCEPHALIC - Eye Exam Eye Exam: EOMI, Normal appearance, PERRL - ENT Exam ENT Exam: Mucous Membranes Moist - Respiratory Exam Respiratory Exam: Clear to Auscultation Bilateral, NORMAL BREATHING PATTERN. absent: Rales, Rhonchi, Wheezes - Cardiovascular Exam Cardiovascular Exam: REGULAR RHYTHM, +S1, +S2. absent: Gallop, Rubs, Murmur - GI/Abdominal Exam GI & Abdominal Exam: Soft, Tenderness, Guarding. absent: Distended, Organomegaly Additional comments: dressing C/D/I colostomy eri drain ON-Q pump - Extremities Exam Extremities Exam: Full ROM, Normal Capillary Refill, Normal Inspection. absent: Pedal Edema, Tenderness - Neurological Exam Neurological Exam: Alert, Awake, CN II-XII Intact, Oriented x3 - Skin Skin Exam: Dry, Intact, Warm Assessment and Plan - Assessment and Plan (Free Text) Assessment: 68 yo male with no known PMhx presented to the ED with c/o abdominal pain, diarrhea, urinary frequency and urgency, and foul-smelling urine, was found to have complex sigmoid mass with colovesicular fistula now POD#1 s/p laparotomy with rectosigmoid mass resection with colostomy. Plan: Sigmoid mass with colovesicular fistula -CT A/P w/IV and PO contrast 10/08: 11 x 8 x 6 mm complex cystic mass in sigmoid colon compatible with malignancy, demonstrating solid and cystic chronic components. Associated invasion of the urinary bladder with suspicion for a colovesicular fistula. -Surgery, urology, hematology oncology consulted, recs appreciated -flexible sigmoidoscopy on 10/10/18 tissue biopsy sample shows adenocarcinoma arising in an ademona -CEA, CA 19-9 wnl Dysuria, hematuria 2/2 fistula -Urology consulted, Dr. Jabari Charles, recs appreciated -U/a positive for UTI, urine cx negative -Testicular U/s done due to pt c/o testicular pain on day of admission, denies pain in area currently -Testicular U/s: Mild heterogeneity to the L testicular echotexture without any definitive focal mass identified. This echotexture and depicted images with flow show the L testicule having less anterior 1/2 vascular flow compared to the R testicle per sagittal images. The close clinical significance of this appearance, if any - is unclear. L epididymal head cysts. Leukocytosis -Blood cultures NG x 3 days -Urine cultures no growth -Stool studies (stool leukocytes, fecal occult, cultures) negative -Procal neg -Abdominal fluid cultres growing gram negative rods -Zosyn/Flagyl -ID consulted, appreciate recs -NS @ 125 cc/hr Iron deficiency anemia, Elevated INR -Pepcid 20 mg IVP bid -Was transfused 2 FFP and 1 unit PRBC for procedure -Dr. Lizarraga consulted, Heme/Onc; recommends transfuse prn, would benefit from IV Venofer 200 mg IVPB x 3 doses -IV Ferrlecit x 3 doses Hypokalemia -monitor and replete Pulmonary Nodule on CXR -CXR 10/09: No acute findings identified. 6 mm probable calcified nodule, left mid lung zone. 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 Alva Oliver PGY-1
[2018-10-12 08:04] LABS: BASO % 0.1 % (0.0-2.0); HEMOGLOBIN 10.2 g/dL (12.0-18.0); LYMPH # 1.8 K/uL (1.0-4.3); LYMPH % 12.6 % (20.0-40.0); MEAN CELL VOLUME 74.4 fL (80.0-94.0); MEAN CORPUSCULAR HGB CONC 32.3 g/dL (33.0-37.0); MEAN PLATELET VOLUME 7.8 fL (7.2-11.7); MONO # 0.7 K/uL (0.0-0.8); MONO % 5.1 % (0.0-10.0); NEUT # 11.6 K/uL (1.8-7.0); NEUT % 82.2 % (50.0-75.0); RBC 4.26 Mil/uL (4.40-5.90); RED CELL DISTRIBUTION WIDTH 17.5 % (11.5-14.5); WHITE BLOOD COUNT 14.1 K/uL (4.8-10.8)
[2018-10-12 08:16] LABS: ALBUMIN 2.9 g/dL (3.5-5.0); ALT/SGPT 19 U/L (21-72); AST/SGOT 23 U/L (17-59); BLOOD UREA NITROGEN 8 mg/dL (9-20); CALCIUM 8.1 mg/dl (8.6-10.4); GFR NON-AFRICAN AMERICAN > 60
--- NOTE | 2018-10-12 08:21 | RAD ---
Date of service: 10/11/2018 PROCEDURE: Intraoperative Fluoroscopy. HISTORY: COLON MASS FINDINGS: Fluoroscopic assistance was provided for bilateral retrograde uretogram and bilateral nephroureteral stent placement. Please refer to the operative report from MARICARMEN Carmen, , MD [facility].
--- NOTE | 2018-10-12 09:09 | CP.PCM.PN ---
<RuiHemal - Last Filed: 10/12/18 09:12> Subjective - Date & Time of Evaluation Date of Evaluation: 10/12/18 Time of Evaluation: 07:00 - Subjective Subjective: Surgery Progress note. Dr. Lozada Pt seen and examined at bedside. No acute events overnight. No N/V. NGT in place with minimal output. Right Davin in place with 20cc serosang output. Moore in place. Still complains of pain and requesting adjustment of current regimen. No new complaints. No F/C. No CP/SOB. Ostomy in place, pink. Midline dressing in place. Objective - Vital Signs/Intake and Output Vital Signs (last 24 hours): Temp Pulse Resp BP Pulse Ox 98.5 F 98 H 20 170/97 H 100 10/12/18 08:28 10/12/18 08:28 10/12/18 08:28 10/12/18 08:28 10/12/18 08:28 Intake and Output: 10/12/18 10/12/18 06:59 18:59 Intake Total 400 Output Total 1295 Balance -895 - Medications Medications: Current Medications Artificial Tears (Artificial Tears) 1 ml OU BID KIAN Last Admin: 10/12/18 00:50 Dose: 1 drop Famotidine (Pepcid) 20 mg IVP Q12 KIAN Last Admin: 10/11/18 22:25 Dose: 20 mg Hydromorphone HCl (Dilaudid) 0.5 mg IVP Q3H PRN PRN Reason: Pain, severe (8-10) Last Admin: 10/12/18 08:23 Dose: 0.5 mg Sodium Chloride (Sodium Chloride 0.9%) 1,000 mls @ 125 mls/hr IV .Q8H KIAN Last Admin: 10/12/18 02:45 Dose: 125 mls/hr Piperacillin Sod/Tazobactam Sod (Zosyn 3.375 Gm Iv Premix) 3.375 gm in 50 mls @ 100 mls/hr IVPB Q6H KIAN; Protocol Last Admin: 10/12/18 02:39 Dose: 100 mls/hr BUPIVACAINE 0.125%/0.9% NACL (Bupivacaine-Ns 0.125% On-Q Transfer Professor) 600 mls @ 4 mls/hr IJ ONCE ONE Stop: 10/17/18 21:16 Lidocaine (Lidoderm) 1 ea TD DAILY KIAN Pneumococcal Polyvalent Vaccine (Pneumovax 23 Vaccine) 0.5 ml IM .ONCE ONE Stop: 10/13/18 10:01 - Labs Labs: 10/12/18 07:50 10/12/18 07:50 PT 15.0 SECONDS (9.7-12.2) H 10/11/18 19:35 INR 1.4 10/11/18 19:35 APTT 26.8 SECONDS (21-34) 10/11/18 19:35 - Constitutional Appears: Non-toxic, No Acute Distress - Head Exam Head Exam: ATRAUMATIC, NORMAL INSPECTION, NORMOCEPHALIC - Eye Exam Eye Exam: EOMI, Normal appearance. absent: Scleral icterus - ENT Exam ENT Exam: Mucous Membranes Moist - Respiratory Exam Respiratory Exam: NORMAL BREATHING PATTERN. absent: Accessory Muscle Use, Respiratory Distress - Cardiovascular Exam Cardiovascular Exam: RRR. absent: JVD - GI/Abdominal Exam GI & Abdominal Exam: Soft. absent: Distended, Firm, Guarding Additional comments: Tenderness to palpation cornelio-incisionally. Dressings clean, dry and intact. Ostomy in place, pink with bowel sweat noted. R davin in place with 20cc output, serosang. On-Q caths in place. - Extremities Exam Extremities Exam: Normal Inspection. absent: Calf Tenderness - Neurological Exam Neurological Exam: Alert, Awake, Oriented x3 Assessment and Plan - Assessment and Plan (Free Text) Assessment: 68yo M w a nearly obstructing sigmoid mass, colovesicular fistula. S/p Rectosigmoid Mass Resection, End Sigmoid Colostomy Creation, Omentopexy POD 1. Plan: - Maintain NGT for now. Awaiting bowel function - Pain management - Discuss with Dr. Charles, Urology, regarding d/c ureteral stents and moore today - Continue Abx as per ID recs - Encourage OOBTC - Antiemetics as needed Furter recs as per Dr. Kierra Fabian PGY2 surgery <Otilio Lozada - Last Filed: 10/16/18 21:01> Objective - Vital Signs/Intake and Output Vital Signs (last 24 hours): Temp Pulse Resp BP Pulse Ox 97.3 F L 90 20 144/87 98 10/16/18 15:00 10/16/18 15:00 10/16/18 15:00 10/16/18 15:00 10/16/18 15:00 Intake and Output: 10/16/18 10/17/18 18:59 06:59 Intake Total 1340 Output Total 830 Balance 510 - Medications Medications: Current Medications Amlodipine Besylate (Norvasc) 5 mg PO DAILY KIAN Last Admin: 10/16/18 10:17 Dose: 5 mg Artificial Tears (Artificial Tears) 1 ml OU BID KIAN Last Admin: 10/16/18 17:41 Dose: 1 drop Enoxaparin Sodium (Lovenox) 40 mg SC DAILY KIAN Last Admin: 10/16/18 10:07 Dose: 40 mg Famotidine (Pepcid) 20 mg IVP Q12 KIAN Last Admin: 10/16/18 10:10 Dose: 20 mg Hydromorphone HCl (Dilaudid) 1 mg IVP Q3H PRN PRN Reason: Pain, severe (8-10) Last Admin: 10/16/18 17:49 Dose: 1 mg Meropenem 1 gm/ Sodium (Chloride) 100 mls @ 100 mls/hr IVPB Q8H KIAN; Protocol Last Admin: 10/16/18 13:28 Dose: 100 mls/hr BUPIVACAINE 0.125%/0.9% NACL (Bupivacaine-Ns 0.125% On-Q Transfer Professor) 600 mls @ 4 mls/hr IJ ONCE ONE Stop: 10/19/18 15:59 Potassium Chloride/Dextrose/Sod Cl (Potassium Chl 40 Meq In D5-1/2ns) 1,000 mls @ 100 mls/hr IV .Q10H KIAN Last Admin: 10/16/18 19:54 Dose: 100 mls/hr Lactobacillus Acidophilus (Lactobacillus) 1 cap PO Q12H KIAN Last Admin: 10/16/18 14:15 Dose: 1 cap Lidocaine (Lidoderm) 1 ea TD DAILY KIAN Last Admin: 10/16/18 10:07 Dose: 1 ea - Labs Labs: 10/16/18 09:06 10/16/18 09:06 PT 15.0 SECONDS (9.7-12.2) H 10/11/18 19:35 INR 1.4 10/11/18 19:35 APTT 26.8 SECONDS (21-34) 10/11/18 19:35 Attending/Attestation - Attestation I have personally seen and examined this patient.: Yes I have fully participated in the care of the patient.: Yes I have reviewed all pertinent clinical information, including history, physical exam and plan: Yes Notes (Text): Pt was seen and examined at bedside Agree with above note and assessment Pt has better pain control WBC is trending up C/w IV antibiotics c.w current mx NG tube to LIS NPO, IVF Plan d.w pt in detail
--- NOTE | 2018-10-12 09:12 | CP.PCM.PN ---
<Talia Mc - Last Filed: 10/12/18 09:06> Subjective - Date & Time of Evaluation Date of Evaluation: 10/12/18 Time of Evaluation: 07:00 - Subjective Subjective: GI Fellow PGY5 Progress Note Pt seen and evaluated at bedside, pt complaining of alot of pain around ostomy site. Not passing gas, no BM. NGT causing sore throat. ROS: A 12pt ROS was negative except as above. Objective - Vital Signs/Intake and Output Vital Signs (last 24 hours): Temp Pulse Resp BP Pulse Ox 98.5 F 98 H 20 170/97 H 100 10/12/18 08:28 10/12/18 08:28 10/12/18 08:28 10/12/18 08:28 10/12/18 08:28 Intake and Output: 10/12/18 10/12/18 06:59 18:59 Intake Total 400 Output Total 1295 Balance -895 - Medications Medications: Current Medications Artificial Tears (Artificial Tears) 1 ml OU BID KIAN Last Admin: 10/12/18 00:50 Dose: 1 drop Famotidine (Pepcid) 20 mg IVP Q12 KIAN Last Admin: 10/11/18 22:25 Dose: 20 mg Hydromorphone HCl (Dilaudid) 0.5 mg IVP Q3H PRN PRN Reason: Pain, severe (8-10) Last Admin: 10/12/18 08:23 Dose: 0.5 mg Sodium Chloride (Sodium Chloride 0.9%) 1,000 mls @ 125 mls/hr IV .Q8H KIAN Last Admin: 10/12/18 02:45 Dose: 125 mls/hr Piperacillin Sod/Tazobactam Sod (Zosyn 3.375 Gm Iv Premix) 3.375 gm in 50 mls @ 100 mls/hr IVPB Q6H KIAN; Protocol Last Admin: 10/12/18 08:57 Dose: 100 mls/hr BUPIVACAINE 0.125%/0.9% NACL (Bupivacaine-Ns 0.125% On-Q Curriculum Director) 600 mls @ 4 mls/hr IJ ONCE ONE Stop: 10/17/18 21:16 Lidocaine (Lidoderm) 1 ea TD DAILY KIAN Pneumococcal Polyvalent Vaccine (Pneumovax 23 Vaccine) 0.5 ml IM .ONCE ONE Stop: 10/13/18 10:01 - Labs Labs: 10/12/18 07:50 10/12/18 07:50 PT 15.0 SECONDS (9.7-12.2) H 10/11/18 19:35 INR 1.4 10/11/18 19:35 APTT 26.8 SECONDS (21-34) 10/11/18 19:35 - Constitutional Appears: Non-toxic, No Acute Distress, Cachectic - Head Exam Head Exam: ATRAUMATIC, NORMAL INSPECTION, NORMOCEPHALIC - Eye Exam Eye Exam: EOMI, Normal appearance, PERRL - ENT Exam ENT Exam: Mucous Membranes Moist, Normal Exam Additional comments: NGT - Neck Exam Neck Exam: Full ROM, Normal Inspection - Respiratory Exam Respiratory Exam: Clear to Ausculation Bilateral, NORMAL BREATHING PATTERN - Cardiovascular Exam Cardiovascular Exam: REGULAR RHYTHM, RRR, +S1, +S2 - GI/Abdominal Exam GI & Abdominal Exam: Soft, Tenderness, Hypoactive Bowel Sounds Additional comments: ostomy with bloody outpt - Extremities Exam Extremities Exam: Full ROM, Normal Inspection - Neurological Exam Neurological Exam: Alert, Awake, Oriented x3 - Psychiatric Exam Psychiatric exam: Normal Affect, Normal Mood - Skin Skin Exam: Dry, Intact, Normal Color, Warm Assessment and Plan - Assessment and Plan (Free Text) Assessment: 1. Sigmoid colon mass-Adenocarcinoma 2. Colovesicular fistula 3. Dysuria 4. Weightloss Plan: -s/p flex sig with large sigmoid mass, frozen section+adenocarcinoma -s/p sigmoid mass resection and end sigmoid colostomy POD#1 -Pain control -f/u urology -Abx per primary team -Surgical team following pt -oncology consult -Please call with any questions or concerns <Db Kuhn - Last Filed: 10/12/18 13:50> Objective - Vital Signs/Intake and Output Vital Signs (last 24 hours): Temp Pulse Resp BP Pulse Ox 98.5 F 98 H 20 170/97 H 100 10/12/18 08:28 10/12/18 08:28 10/12/18 08:28 10/12/18 08:28 10/12/18 08:28 Intake and Output: 10/12/18 10/12/18 06:59 18:59 Intake Total 400 Output Total 1295 Balance -895 - Medications Medications: Current Medications Artificial Tears (Artificial Tears) 1 ml OU BID KIAN Last Admin: 10/12/18 00:50 Dose: 1 drop Famotidine (Pepcid) 20 mg IVP Q12 KIAN Last Admin: 10/12/18 10:45 Dose: 20 mg Ferric Sodium Gluconate Complex (Ferrlecit) 125 mg IVPB DAILY KIAN Stop: 10/14/18 10:01 Hydromorphone HCl (Dilaudid) 0.5 mg IVP Q3H PRN PRN Reason: Pain, severe (8-10) Last Admin: 10/12/18 08:23 Dose: 0.5 mg Sodium Chloride (Sodium Chloride 0.9%) 1,000 mls @ 125 mls/hr IV .Q8H KIAN Last Admin: 10/12/18 02:45 Dose: 125 mls/hr Piperacillin Sod/Tazobactam Sod (Zosyn 3.375 Gm Iv Premix) 3.375 gm in 50 mls @ 100 mls/hr IVPB Q6H KIAN; Protocol Last Admin: 10/12/18 08:57 Dose: 100 mls/hr BUPIVACAINE 0.125%/0.9% NACL (Bupivacaine-Ns 0.125% On-Q Curriculum Director) 600 mls @ 4 mls/hr IJ ONCE ONE Stop: 10/17/18 21:16 Lidocaine (Lidoderm) 1 ea TD DAILY KIAN Last Admin: 10/12/18 10:45 Dose: 1 ea Pneumococcal Polyvalent Vaccine (Pneumovax 23 Vaccine) 0.5 ml IM .ONCE ONE Stop: 10/13/18 10:01 - Labs Labs: 10/12/18 07:50 10/12/18 07:50 PT 15.0 SECONDS (9.7-12.2) H 10/11/18 19:35 INR 1.4 10/11/18 19:35 APTT 26.8 SECONDS (21-34) 10/11/18 19:35 Attending/Attestation - Attestation I have personally seen and examined this patient.: Yes I have fully participated in the care of the patient.: Yes I have reviewed all pertinent clinical information, including history, physical exam and plan: Yes Notes (Text): 10/12/18 13:47 I have seen and examined patient with GI fellow. No acute events overnight. He is s/p surgical resection of sigmoid lesion yesterday and complains of sharp pain at ostomy site. He otherwise denies nausea, vomiting, fever/chills. Bloody output in ostomy bag noted. 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 Please reconsult as necessary, thank you.
[2018-10-12] MEDS: Lidocaine 5% Patch TD SCH (10:45)
[2018-10-12] MEDS: Ferric Sodium Gluconat Complex 62.5 mg/5 ml Vial IVPB SCH (14:03)
--- NOTE | 2018-10-12 15:57 | PCM.URO ---
Urology Progress Note - Objective Lab Studies: Reviewed (full note to be dictated please moore for one week and we will arrnage for cysto/stent removal /) Lab Results Last 24 Hours: Laboratory Results - last 24 hr 10/11/18 10/11/18 10/11/18 05:14 19:35 19:35 WBC 17.6 H RBC 4.33 L Hgb 10.3 L Hct 32.6 L MCV 75.3 L D MCH 23.7 L MCHC 31.5 L RDW 17.8 H Plt Count 579 H MPV 7.6 Neut % (Auto) 81.6 H Lymph % (Auto) 13.0 L [place] % (Auto) 4.9 Eos % (Auto) 0.1 Baso % (Auto) 0.4 Neut # (Auto) 14.3 H Lymph # (Auto) 2.3 [place] # (Auto) 0.9 H Eos # (Auto) 0.0 Baso # (Auto) 0.1 PT 15.0 H INR 1.4 APTT 26.8 Sodium Potassium Chloride Carbon Dioxide Anion Gap BUN Creatinine Est GFR ( Amer) Est GFR (Non-Af Amer) Random Glucose Calcium Phosphorus Magnesium Total Bilirubin AST ALT Alkaline Phosphatase Total Protein Albumin Globulin Albumin/Globulin Ratio Blood Type A POSITIVE Antibody Screen Negative 10/11/18 10/12/18 10/12/18 19:35 07:50 07:50 WBC 14.1 H RBC 4.26 L Hgb 10.2 L Hct 31.7 L MCV 74.4 L MCH 24.0 L MCHC 32.3 L RDW 17.5 H Plt Count 623 H MPV 7.8 Neut % (Auto) 82.2 H Lymph % (Auto) 12.6 L [place] % (Auto) 5.1 Eos % (Auto) 0.0 Baso % (Auto) 0.1 Neut # (Auto) 11.6 H Lymph # (Auto) 1.8 [place] # (Auto) 0.7 Eos # (Auto) 0.0 Baso # (Auto) 0.0 PT INR APTT Sodium 137 139 Potassium 3.6 4.2 Chloride 100 100 Carbon Dioxide 24 29 Anion Gap 16 15 BUN 6 L 8 L Creatinine 0.7 L 1.0 Est GFR ( Amer) > 60 > 60 Est GFR (Non-Af Amer) > 60 > 60 Random Glucose 132 H D 115 H Calcium 8.1 L 8.1 L Phosphorus 3.6 Magnesium 1.7 Total Bilirubin 0.9 0.6 AST 29 23 ALT 18 L 19 L Alkaline Phosphatase 58 47 Total Protein 6.1 L 5.6 L Albumin 3.3 L 2.9 L Globulin 2.8 2.8 Albumin/Globulin Ratio 1.2 1.0 Blood Type Antibody Screen Intake & Output: Intake & Output 10/11/18 10/12/18 10/12/18 18:59 06:59 18:59 Intake Total 4178 400 Output Total 1400 1295 375 Balance 2778 -895 -375 Intake: IV 2850 150 Intake, IV Amount 50 250 Left Antecubital 50 250 Blood Product 1278 Output: Gastric Drainage 25 Gastric Amount 0 Left Nares 0 Drainage 20 75 Right Abdomen 20 75 Urine 1400 1250 300 Urethral (Moore) 500 300 Urine, Voided 150 Vital Signs: Vital Signs - 24 hr 10/11/18 10/11/18 10/11/18 19:05 19:20 19:35 Temperature 98.4 F Pulse Rate 104 H 99 H 97 H Respiratory 18 23 15 Rate Blood Pressure 151/92 H 158/96 H 177/100 H O2 Sat by Pulse 100 100 100 Oximetry 10/11/18 10/11/18 10/11/18 19:50 20:05 20:20 Temperature Pulse Rate 99 H 102 H 101 H Respiratory 16 14 11 L Rate Blood Pressure 172/96 H 171/94 H 151/92 H O2 Sat by Pulse 100 100 100 Oximetry 10/11/18 10/11/18 10/11/18 20:35 20:50 21:05 Temperature 97.9 F Pulse Rate 103 H 104 H 104 H Respiratory 10 L 9 L 12 Rate Blood Pressure 157/86 H 134/90 140/93 H O2 Sat by Pulse 100 100 100 Oximetry 10/11/18 10/11/18 10/11/18 21:33 22:00 23:00 Temperature 98.4 F Pulse Rate 98 H 93 H 93 H Respiratory 20 Rate Blood Pressure 158/93 H O2 Sat by Pulse 99 Oximetry 10/11/18 10/12/18 23:25 08:28 Temperature 97.7 F 98.5 F Pulse Rate 89 98 H Respiratory 20 20 Rate Blood Pressure 157/88 H 170/97 H O2 Sat by Pulse 100 100 Oximetry
--- NOTE | 2018-10-12 18:38 | CP.PCM.CON ---
History of Present Illness - History of Present Illness History of Present Illness: seen on rounds patient examined chart reviewed orders signed 68 year old male with no significant PMHx who is admitted for abdominal pain, diarrhea, and urinary frequency and urgency due to his colonic mass. He states that this began a few months ago He also states that he has changes in his bowel habits and has fecal matter in his urine. He complains of decreased appetite and 20lbs loss over the last two month. Underwnt cysto and stent placement followed by resection of sigmoid tumor adherent to bladder and colostomy placement Cultures of intraabdomninal abscess were positive ROS: A 12pt ROS was negative except as above. PMHx: As stated in HPI PSHx: No surgeries Family hx: No known family hx of Colon CA Social history: Never smoked. Denies alcohol or drug use. 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 Originally from [place]. Review of Systems - Constitutional Constitutional: As Per HPI - EENT Eyes: As Per HPI Ears: As Per HPI Nose/Mouth/Throat: As Per HPI - Cardiovascular Cardiovascular: As Per HPI - Respiratory Respiratory: As Per HPI - Gastrointestinal Gastrointestinal: As Per HPI - Genitourinary Genitourinary: As Per HPI - Reproductive: Male Reproductive:Male: As Per HPI - Musculoskeletal Musculoskeletal: As Per HPI - Neurological Neurological: As Per HPI - Psychiatric Psychiatric: As Per HPI - Endocrine Endocrine: As Per HPI - Hematologic/Lymphatic Hematologic: As Per HPI Past Patient History - Past Medical History & Family History Past Medical History?: No - Past Social History Smoking Status: Never Smoked - MUSCULOSKELETAL/RHEUMATOLOGICAL Hx Falls: No - PSYCHIATRIC Hx Substance Use: No - SURGICAL HISTORY Hx Surgeries: No Past Patient History - Past Medical History & Family History Past Medical History?: No - Past Social History Smoking Status: Never Smoked - MUSCULOSKELETAL/RHEUMATOLOGICAL Hx Falls: No - PSYCHIATRIC Hx Substance Use: No - SURGICAL HISTORY Hx Surgeries: No - ANESTHESIA Hx Anesthesia: No Meds Allergies/Adverse Reactions: Allergies Allergy/AdvReac Type Severity Reaction Status Date / Time No Known Allergies Allergy Verified 10/09/18 08:13 - Medications Medications: Current Medications Artificial Tears (Artificial Tears) 1 ml OU BID [facility] Last Admin: 10/12/18 17:39 Dose: 1 drop Famotidine (Pepcid) 20 mg IVP Q12 [facility] Last Admin: 10/12/18 10:45 Dose: 20 mg Ferric Sodium Gluconate Complex (Ferrlecit) 125 mg IVPB DAILY KIAN Stop: 10/14/18 10:01 Last Admin: 10/12/18 14:03 Dose: 62.5 mg Hydromorphone HCl (Dilaudid) 0.5 mg IVP Q3H PRN PRN Reason: Pain, severe (8-10) Last Admin: 10/12/18 14:07 Dose: 0.5 mg Sodium Chloride (Sodium Chloride 0.9%) 1,000 mls @ 125 mls/hr IV .Q8H KIAN Last Admin: 10/12/18 13:30 Dose: 125 mls/hr Piperacillin Sod/Tazobactam Sod (Zosyn 3.375 Gm Iv Premix) 3.375 gm in 50 mls @ 100 mls/hr IVPB Q6H KIAN; Protocol Last Admin: 10/12/18 14:05 Dose: 100 mls/hr BUPIVACAINE 0.125%/0.9% NACL (Bupivacaine-Ns 0.125% On-Q Garageman) 600 mls @ 4 mls/hr IJ ONCE ONE Stop: 10/17/18 21:16 Lidocaine (Lidoderm) 1 ea TD DAILY [facility] Last Admin: 10/12/18 10:45 Dose: 1 ea Pneumococcal Polyvalent Vaccine (Pneumovax 23 Vaccine) 0.5 ml IM .ONCE ONE Stop: 10/13/18 10:01 Physical Exam - Constitutional Appears: Non-toxic, No Acute Distress, Cachectic, Chronically Ill - Head Exam Head Exam: ATRAUMATIC, NORMAL INSPECTION, NORMOCEPHALIC Additional comments: NGT in place - Eye Exam Eye Exam: EOMI, Normal appearance, PERRL Pupil Exam: NORMAL ACCOMODATION, PERRL - ENT Exam ENT Exam: Mucous Membranes Moist, Normal Exam - Neck Exam Neck exam: Positive for: Normal Inspection - Respiratory Exam Respiratory Exam: Clear to Auscultation Bilateral, NORMAL BREATHING PATTERN - Cardiovascular Exam Cardiovascular Exam: REGULAR RHYTHM - GI/Abdominal Exam GI & Abdominal Exam: Diminished Bowel Sounds, Distended, Guarding, Hypoactive Bowel Sounds. absent: Rebound Additional comments: LLQ colostomy - Rectal Exam Rectal Exam: Deferred - Exam Exam: NORMAL INSPECTION - Extremities Exam Extremities exam: Positive for: normal inspection - Back Exam Back exam: NORMAL INSPECTION - Neurological Exam Neurological exam: Alert, CN II-XII Intact, Normal Gait, Oriented x3, Reflexes Normal - Psychiatric Exam Psychiatric exam: Normal Affect, Normal Mood - Skin Skin Exam: Dry, Intact, Normal Color, Warm Results - Vital Signs Recent Vital Signs: Last Vital Signs Temp 98.6 F 10/12/18 15:05 Pulse 102 H 10/12/18 15:05 Resp 20 10/12/18 15:05 BP 156/84 H 10/12/18 15:05 Pulse Ox 99 10/12/18 15:05 - Labs Result Diagrams: 10/12/18 07:50 10/12/18 07:50 Labs: Laboratory Results - last 24 hr 10/11/18 10/11/18 10/11/18 05:14 19:35 19:35 WBC 17.6 H RBC 4.33 L Hgb 10.3 L Hct 32.6 L MCV 75.3 L D MCH 23.7 L MCHC 31.5 L RDW 17.8 H Plt Count 579 H MPV 7.6 Neut % (Auto) 81.6 H Lymph % (Auto) 13.0 L [place] % (Auto) 4.9 Eos % (Auto) 0.1 Baso % (Auto) 0.4 Neut # (Auto) 14.3 H Lymph # (Auto) 2.3 [place] # (Auto) 0.9 H Eos # (Auto) 0.0 Baso # (Auto) 0.1 PT 15.0 H INR 1.4 APTT 26.8 Sodium Potassium Chloride Carbon Dioxide Anion Gap BUN Creatinine Est GFR ( Amer) Est GFR (Non-Af Amer) Random Glucose Calcium Phosphorus Magnesium Total Bilirubin AST ALT Alkaline Phosphatase Total Protein Albumin Globulin Albumin/Globulin Ratio Blood Type A POSITIVE Antibody Screen Negative 10/11/18 10/12/18 10/12/18 19:35 07:50 07:50 WBC 14.1 H RBC 4.26 L Hgb 10.2 L Hct 31.7 L MCV 74.4 L MCH 24.0 L MCHC 32.3 L RDW 17.5 H Plt Count 623 H MPV 7.8 Neut % (Auto) 82.2 H Lymph % (Auto) 12.6 L [place] % (Auto) 5.1 Eos % (Auto) 0.0 Baso % (Auto) 0.1 Neut # (Auto) 11.6 H Lymph # (Auto) 1.8 [place] # (Auto) 0.7 Eos # (Auto) 0.0 Baso # (Auto) 0.0 PT INR APTT Sodium 137 139 Potassium 3.6 4.2 Chloride 100 100 Carbon Dioxide 24 29 Anion Gap 16 15 BUN 6 L 8 L Creatinine 0.7 L 1.0 Est GFR ( Amer) > 60 > 60 Est GFR (Non-Af Amer) > 60 > 60 Random Glucose 132 H D 115 H Calcium 8.1 L 8.1 L Phosphorus 3.6 Magnesium 1.7 Total Bilirubin 0.9 0.6 AST 29 23 ALT 18 L 19 L Alkaline Phosphatase 58 47 Total Protein 6.1 L 5.6 L Albumin 3.3 L 2.9 L Globulin 2.8 2.8 Albumin/Globulin Ratio 1.2 1.0 Blood Type Antibody Screen Assessment & Plan (1) Adenocarcinoma carcinomatosis Status: Acute (2) UTI (urinary tract infection) Status: Acute (3) Colostomy in place Status: Acute (4) Peritonitis Status: Acute - Assessment and Plan (Free Text) Assessment: add Merrem' cont supportive care
[2018-10-12] MEDS ORDERED: Meropenem 1 GM in Sodium Chloride 0.9% 100 ML IVPB SCH (19:00)
[2018-10-12] MEDS: Meropenem 1 GM in Sodium Chloride 0.9% 100 ML IVPB SCH (21:56)
[2018-10-13] MEDS: Sodium Chloride 0.9% 1,000 ML IV SCH ×3 (05:32→21:30)
[2018-10-13] MEDS: Meropenem 1 GM in Sodium Chloride 0.9% 100 ML IVPB SCH ×3 (05:32→21:28)
[2018-10-13] MEDS: HYDROmorphone 0.5 mg/0.5 ml ISec IVP PRN ×4 (06:10→19:02)
[2018-10-13 06:36] LABS: BASO # 0.1 K/uL (0.0-0.2); BASO % 0.9 % (0.0-2.0); HEMOGLOBIN 9.4 g/dL (12.0-18.0); LYMPH % 11.8 % (20.0-40.0); MEAN CELL VOLUME 74.3 fL (80.0-94.0); MEAN CORPUSCULAR HEMOGLOBIN 23.7 pg (27.0-31.0); MEAN CORPUSCULAR HGB CONC 31.9 g/dL (33.0-37.0); MEAN PLATELET VOLUME 7.5 fL (7.2-11.7); MONO # 1.2 K/uL (0.0-0.8); MONO % 6.9 % (0.0-10.0); NEUT # 13.5 K/uL (1.8-7.0); NEUT % 80.4 % (50.0-75.0); RBC 3.96 Mil/uL (4.40-5.90); RED CELL DISTRIBUTION WIDTH 18.2 % (11.5-14.5); WHITE BLOOD COUNT 16.8 K/uL (4.8-10.8)
[2018-10-13 07:37] LABS: ALB/GLOB RATIO 0.8 (1.0-2.1); ALBUMIN 2.7 g/dL (3.5-5.0); ALT/SGPT 30 U/L (21-72); AST/SGOT 39 U/L (17-59); BLOOD UREA NITROGEN 11 mg/dL (9-20); CALCIUM 8.1 mg/dl (8.6-10.4); GFR NON-AFRICAN AMERICAN > 60
--- NOTE | 2018-10-13 09:43 | CP.PCM.PN ---
<Ariadne Garber - Last Filed: 10/13/18 09:39> Subjective - Date & Time of Evaluation Date of Evaluation: 10/13/18 Time of Evaluation: 09:39 - Subjective Subjective: Surgery: Dr. Lozada Patient with abdominal pain amendable to pain medication. Denies n/v/f/c. Denies flatus or BM. NGT output 100cc of dark bilious fluid in 24hrs. Objective - Vital Signs/Intake and Output Vital Signs (last 24 hours): Temp Pulse Resp BP Pulse Ox 98.6 F 97 H 20 163/84 H 100 10/13/18 07:00 10/13/18 07:00 10/13/18 07:00 10/13/18 07:00 10/13/18 07:00 Intake and Output: 10/13/18 10/13/18 06:59 18:59 Output Total 620 Balance -620 - Medications Medications: Current Medications Artificial Tears (Artificial Tears) 1 ml OU BID KIAN Last Admin: 10/12/18 17:39 Dose: 1 drop Famotidine (Pepcid) 20 mg IVP Q12 KIAN Last Admin: 10/12/18 21:54 Dose: 20 mg Ferric Sodium Gluconate Complex (Ferrlecit) 125 mg IVPB DAILY KIAN Stop: 10/14/18 10:01 Last Admin: 10/12/18 14:03 Dose: 62.5 mg Hydromorphone HCl (Dilaudid) 0.5 mg IVP Q3H PRN PRN Reason: Pain, severe (8-10) Last Admin: 10/13/18 06:10 Dose: 0.5 mg Sodium Chloride (Sodium Chloride 0.9%) 1,000 mls @ 125 mls/hr IV .Q8H KIAN Last Admin: 10/13/18 05:32 Dose: 125 mls/hr BUPIVACAINE 0.125%/0.9% NACL (Bupivacaine-Ns 0.125% On-Q Chief Credit Officer) 600 mls @ 4 mls/hr IJ ONCE ONE Stop: 10/17/18 21:16 Meropenem 1 gm/ Sodium (Chloride) 100 mls @ 100 mls/hr IVPB Q8H KIAN; Protocol Last Admin: 10/13/18 05:32 Dose: 100 mls/hr Lidocaine (Lidoderm) 1 ea TD DAILY KIAN Last Admin: 10/12/18 10:45 Dose: 1 ea Pneumococcal Polyvalent Vaccine (Pneumovax 23 Vaccine) 0.5 ml IM .ONCE ONE Stop: 10/13/18 10:01 - Labs Labs: 10/13/18 06:30 10/13/18 06:30 PT 15.0 SECONDS (9.7-12.2) H 10/11/18 19:35 INR 1.4 10/11/18 19:35 APTT 26.8 SECONDS (21-34) 10/11/18 19:35 - Constitutional Appears: Non-toxic, No Acute Distress - Head Exam Head Exam: ATRAUMATIC, NORMOCEPHALIC - Eye Exam Eye Exam: EOMI, Normal appearance - ENT Exam ENT Exam: Mucous Membranes Dry - Respiratory Exam Respiratory Exam: NORMAL BREATHING PATTERN. absent: Respiratory Distress - Cardiovascular Exam Cardiovascular Exam: REGULAR RHYTHM. absent: Tachycardia - GI/Abdominal Exam GI & Abdominal Exam: Soft, Tenderness (cornelio-incisional pain, appropriate). absent: Distended, Guarding Additional comments: ostomy pink, patent, bowel sweat in bag, no air - Extremities Exam Extremities Exam: Normal Inspection. absent: Calf Tenderness - Neurological Exam Neurological Exam: Alert, Awake, Oriented x3 - Psychiatric Exam Psychiatric exam: Normal Affect, Normal Mood - Skin Skin Exam: Dry, Warm Assessment and Plan - Assessment and Plan (Free Text) Assessment: 68 y/o male s/p ex lap and Alyse's for nearly obstructing colon mass Plan: -NGT in place, monitor output: can clamp for ambulating -will consider d/c NGT when bowel function returns -cont moore for 1 week post op per urology recs -cont abx, appreciate ID recs -eri drain in place, monitor output -cont IVF, maintence -patient needs to be OOB, ambulating as tolerated -monitor for bowel function -protonix GI ppx -lovenox dvt ppx -IS use -de-escalate pain meds as tolerated -d/w Dr. [place]ozada [place] PGY4 <Otilio Lozada - Last Filed: 10/16/18 21:02> Objective - Vital Signs/Intake and Output Vital Signs (last 24 hours): Temp Pulse Resp BP Pulse Ox 97.3 F L 90 20 144/87 98 10/16/18 15:00 10/16/18 15:00 10/16/18 15:00 10/16/18 15:00 10/16/18 15:00 Intake and Output: 10/16/18 10/17/18 18:59 06:59 Intake Total 1340 Output Total 830 Balance 510 - Medications Medications: Current Medications Amlodipine Besylate (Norvasc) 5 mg PO DAILY [facility] Last Admin: 10/16/18 10:17 Dose: 5 mg Artificial Tears (Artificial Tears) 1 ml OU BID [facility] Last Admin: 10/16/18 17:41 Dose: 1 drop Enoxaparin Sodium (Lovenox) 40 mg SC DAILY [facility] Last Admin: 10/16/18 10:07 Dose: 40 mg Famotidine (Pepcid) 20 mg IVP Q12 [facility] Last Admin: 10/16/18 10:10 Dose: 20 mg Hydromorphone HCl (Dilaudid) 1 mg IVP Q3H PRN PRN Reason: Pain, severe (8-10) Last Admin: 10/16/18 17:49 Dose: 1 mg Meropenem 1 gm/ Sodium (Chloride) 100 mls @ 100 mls/hr IVPB Q8H KIAN; Protocol Last Admin: 10/16/18 13:28 Dose: 100 mls/hr BUPIVACAINE 0.125%/0.9% NACL (Bupivacaine-Ns 0.125% On-Q Chief Credit Officer) 600 mls @ 4 mls/hr IJ ONCE ONE Stop: 10/19/18 15:59 Potassium Chloride/Dextrose/Sod Cl (Potassium Chl 40 Meq In D5-1/2ns) 1,000 mls @ 100 mls/hr IV .Q10H [facility] Last Admin: 10/16/18 19:54 Dose: 100 mls/hr Lactobacillus Acidophilus (Lactobacillus) 1 cap PO Q12H [facility] Last Admin: 10/16/18 14:15 Dose: 1 cap Lidocaine (Lidoderm) 1 ea TD DAILY [facility] Last Admin: 10/16/18 10:07 Dose: 1 ea - Labs Labs: 10/16/18 09:06 10/16/18 09:06 PT 15.0 SECONDS (9.7-12.2) H 10/11/18 19:35 INR 1.4 10/11/18 19:35 APTT 26.8 SECONDS (21-34) 10/11/18 19:35 Attending/Attestation - Attestation I have fully participated in the care of the patient.: Yes I have reviewed all pertinent clinical information, including history, physical exam and plan: Yes Notes (Text): Pt is stable clinically c.w current mx IV antibiotics DVT prophylaxis Plan d.w primary team in detail.
--- NOTE | 2018-10-13 09:54 | CP.PCM.PN ---
Subjective - Date & Time of Evaluation Date of Evaluation: 10/13/18 Time of Evaluation: 07:45 - Subjective Subjective: Medicine Progress Note for Hospitalist Service, Dr. Calle Pt seen and examined at bedside this am. Reports pain improved and more contr olled with pain meds currently. S/p ex-lap with rectosigmoid mass resection with colostomy, and cystoscopy with b/l stent placement POD#2. No acute events reported overnight. 12-point ROS obtained, otherwise neg as per pt. NGT output overnight was 100 cc dark bilious fluid. Objective - Vital Signs/Intake and Output Vital Signs (last 24 hours): Temp Pulse Resp BP Pulse Ox 98.6 F 97 H 20 163/84 H 100 10/13/18 07:00 10/13/18 07:00 10/13/18 07:00 10/13/18 07:00 10/13/18 07:00 Intake and Output: 10/13/18 10/13/18 06:59 18:59 Output Total 620 Balance -620 - Medications Medications: Current Medications Artificial Tears (Artificial Tears) 1 ml OU BID [facility] Last Admin: 10/12/18 17:39 Dose: 1 drop Enoxaparin Sodium (Lovenox) 40 mg SC DAILY [facility] Famotidine (Pepcid) 20 mg IVP Q12 [facility] Last Admin: 10/12/18 21:54 Dose: 20 mg Ferric Sodium Gluconate Complex (Ferrlecit) 125 mg IVPB DAILY [facility] Stop: 10/14/18 10:01 Last Admin: 10/12/18 14:03 Dose: 62.5 mg Hydromorphone HCl (Dilaudid) 0.5 mg IVP Q3H PRN PRN Reason: Pain, severe (8-10) Last Admin: 10/13/18 09:49 Dose: 0.5 mg Sodium Chloride (Sodium Chloride 0.9%) 1,000 mls @ 125 mls/hr IV .Q8H [facility] Last Admin: 10/13/18 05:32 Dose: 125 mls/hr BUPIVACAINE 0.125%/0.9% NACL (Bupivacaine-Ns 0.125% On-Q Burglar Alarm Installer) 600 mls @ 4 mls/hr IJ ONCE ONE Stop: 10/17/18 21:16 Meropenem 1 gm/ Sodium (Chloride) 100 mls @ 100 mls/hr IVPB Q8H [facility]; Protocol Last Admin: 10/13/18 05:32 Dose: 100 mls/hr BUPIVACAINE 0.125%/0.9% NACL (Bupivacaine-Ns 0.125% On-Q Burglar Alarm Installer) 600 mls @ 4 mls/ hr IJ ONCE ONE Stop: 10/19/18 15:40 Lidocaine (Lidoderm) 1 ea TD DAILY [facility] Last Admin: 10/12/18 10:45 Dose: 1 ea Pantoprazole Sodium (Protonix Inj) 40 mg IVP DAILY [facility] Pneumococcal Polyvalent Vaccine (Pneumovax 23 Vaccine) 0.5 ml IM .ONCE ONE Stop: 10/13/18 10:01 - Labs Labs: 10/13/18 06:30 10/13/18 06:30 PT 15.0 SECONDS (9.7-12.2) H 10/11/18 19:35 INR 1.4 10/11/18 19:35 APTT 26.8 SECONDS (21-34) 10/11/18 19:35 - Constitutional Appears: Non-toxic, No Acute Distress - Head Exam Head Exam: ATRAUMATIC, NORMOCEPHALIC - Eye Exam Eye Exam: EOMI, Normal appearance, PERRL - ENT Exam ENT Exam: Mucous Membranes Moist Additional comments: NGT in place - Respiratory Exam Respiratory Exam: Clear to Ausculation Bilateral, NORMAL BREATHING PATTERN. absent: Rales, Rhonchi, Wheezes - Cardiovascular Exam Cardiovascular Exam: Tachycardia, +S1, +S2. absent: Gallop, Rubs, Murmur - GI/Abdominal Exam GI & Abdominal Exam: Soft. absent: Distended, Tenderness, Organomegaly Additional comments: Colostomy tube in place, c/d/i; surgical site c/d/i - Extremities Exam Extremities Exam: Full ROM, Normal Capillary Refill, Normal Inspection. absent: Pedal Edema, Tenderness - Neurological Exam Neurological Exam: Alert, Awake, CN II-XII Intact, Oriented x3 - Skin Skin Exam: Dry, Intact, Warm Assessment and Plan - Assessment and Plan (Free Text) Assessment: 68 yo male with no known PMhx presented to the ED with c/o abdominal pain, diarrhea, urinary frequency and urgency, and foul-smelling urine, was found to have complex sigmoid mass with colovesicular fistula now POD#2 s/p laparotomy with rectosigmoid mass resection with colostomy, and cystoscopy with b/l ureteral stent placement. Plan: Sigmoid mass with colovesicular fistula -CT A/P w/IV and PO contrast 10/08: 11 x 8 x 6 mm complex cystic mass in sigmoid colon compatible with malignancy, demonstrating solid and cystic chronic components. Associated invasion of the urinary bladder with suspicion for a colovesicular fistula. 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 Jabari Charles, recs appreciated -Plan for moore to be in place for 1 week -U/a positive for UTI, urine cx negative -Testicular U/s done due to pt c/o testicular pain on day of admission, denies pain in area currently -Testicular U/s: Mild heterogeneity to the L testicular echotexture without any definitive focal mass identified. This echotexture and depicted images with flow show the L testicule having less anterior 1/2 vascular flow compared to the R te sticle per sagittal images. The close clinical significance of this appearance, if any - is unclear. L epididymal head cysts. Leukocytosis -Blood cultures NG x 4 days -Urine cultures no growth -Stool studies (stool leukocytes, fecal occult, cultures) negative -Procal neg -Abdominal fluid cultures growing Klebsiella -Zosyn/Flagyl d/c'd -Merrem 1 g q8h started by ID on 10/12/18 -ID consulted, Dr. Zamudio, appreciate recs -NS @ 125 cc/hr Iron deficiency anemia, Elevated INR -Pepcid 20 mg IVP bid -S/p transfusion of 2 FFP and 2 unit PRBC -Dr. Lizarraga consulted, Heme/Onc, recs appreciated -IV Ferrlecit x 3 doses -Cont to trend H/H Hypokalemia -Monitor and replete Pulmonary Nodule on CXR -CXR 10/09: No acute findings identified. 6 mm probable calcified nodule, left mid lung zone. 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 Calle, attending physician. Polo Rosa DO PGY-1, Fire Safety Manager Pager #[phone]
[2018-10-13] MEDS ORDERED: Pneumococcal 23-Valent Vaccine IM ONE (10:00)
[2018-10-13] MEDS ORDERED: BUPIVACAINE 0.125%/0.9% NACL 600 ML IJ ONE (10:00)
[2018-10-13] MEDS: Aritificial Tears (15ml) OU SCH ×2 (10:39→18:29)
[2018-10-13] MEDS: Ferric Sodium Gluconat Complex 62.5 mg/5 ml Vial IVPB SCH (10:41)
[2018-10-13] MEDS: Lidocaine 5% Patch TD SCH (10:41)
[2018-10-13] MEDS: Enoxaparin 40 mg Syringe SC SCH (12:11)
--- NOTE | 2018-10-13 18:39 | CP.PCM.PN ---
Subjective - Date & Time of Evaluation Date of Evaluation: 10/13/18 Time of Evaluation: 09:00 - Subjective Subjective: pain less awake alert NGT in place denies fever Objective - Vital Signs/Intake and Output Vital Signs (last 24 hours): Temp Pulse Resp BP Pulse Ox 97.9 F 101 H 20 176/97 H 94 L 10/13/18 15:00 10/13/18 15:00 10/13/18 15:00 10/13/18 15:00 10/13/18 15:00 Intake and Output: 10/13/18 10/13/18 06:59 18:59 Intake Total 1000 Output Total 620 605 Balance -620 395 - Medications Medications: Current Medications Artificial Tears (Artificial Tears) 1 ml OU BID [facility] Last Admin: 10/13/18 18:29 Dose: 1 drop Enoxaparin Sodium (Lovenox) 40 mg SC DAILY [facility] Last Admin: 10/13/18 12:11 Dose: 40 mg Famotidine (Pepcid) 20 mg IVP Q12 [facility] Last Admin: 10/13/18 10:41 Dose: 20 mg Ferric Sodium Gluconate Complex (Ferrlecit) 125 mg IVPB DAILY [facility] Stop: 10/14/18 10:01 Last Admin: 10/13/18 10:41 Dose: 125 mg Hydromorphone HCl (Dilaudid) 0.5 mg IVP Q3H PRN PRN Reason: Pain, severe (8-10) Last Admin: 10/13/18 14:15 Dose: 0.5 mg Sodium Chloride (Sodium Chloride 0.9%) 1,000 mls @ 125 mls/hr IV .Q8H [facility] Last Admin: 10/13/18 18:29 Dose: 125 mls/hr Meropenem 1 gm/ Sodium (Chloride) 100 mls @ 100 mls/hr IVPB Q8H [facility]; Protocol Last Admin: 10/13/18 12:11 Dose: 100 mls/hr BUPIVACAINE 0.125%/0.9% NACL (Bupivacaine-Ns 0.125% On-Q Salad Chef) 600 mls @ 4 mls/hr IJ ONCE ONE Stop: 10/19/18 15:59 Lidocaine (Lidoderm) 1 ea TD DAILY [facility] Last Admin: 10/13/18 10:41 Dose: 1 ea Pantoprazole Sodium (Protonix Inj) 40 mg IVP DAILY [facility] Last Admin: 10/13/18 10:20 Dose: 40 mg - Labs Labs: 10/13/18 06:30 10/13/18 06:30 PT 15.0 SECONDS (9.7-12.2) H 10/11/18 19:35 INR 1.4 10/11/18 19:35 APTT 26.8 SECONDS (21-34) 10/11/18 19:35 - Constitutional Appears: Non-toxic, Chronically Ill - Head Exam Head Exam: NORMOCEPHALIC - Eye Exam Eye Exam: absent: Scleral icterus - ENT Exam ENT Exam: Mucous Membranes Dry - Neck Exam Neck Exam: absent: Lymphadenopathy - Respiratory Exam Respiratory Exam: Decreased Breath Sounds - Cardiovascular Exam Cardiovascular Exam: REGULAR RHYTHM - GI/Abdominal Exam GI & Abdominal Exam: Distended, Soft, Tenderness, Diminished Bowel Sounds Additional comments: LLQ colostomy - Rectal Exam Rectal Exam: NORMAL INSPECTION - Exam Exam: Scrotal Swelling - Extremities Exam Extremities Exam: absent: Calf Tenderness - Back Exam Back Exam: absent: CVA tenderness (L), CVA tenderness (R) - Neurological Exam Neurological Exam: Alert, Awake, CN II-XII Intact, Oriented x3 Neuro motor strength exam: Left Upper Extremity: 4, Right Upper Extremity: 4, Left Lower Extremity: 4, Right Lower Extremity: 4 - Psychiatric Exam Psychiatric exam: Depressed - Skin Skin Exam: Dry Assessment and Plan (1) Adenocarcinoma carcinomatosis Status: Acute (2) UTI (urinary tract infection) Status: Acute (3) Colostomy in place Status: Acute (4) Peritonitis Status: Acute - Assessment and Plan (Free Text) Assessment: cont IV antibiotics and wound care
[2018-10-14] MEDS: HYDROmorphone 0.5 mg/0.5 ml ISec IVP PRN ×3 (01:29→11:53)
[2018-10-14] MEDS: Sodium Chloride 0.9% 1,000 ML IV SCH ×4 (05:44→22:20)
[2018-10-14] MEDS: Meropenem 1 GM in Sodium Chloride 0.9% 100 ML IVPB SCH ×3 (05:44→22:00)
--- NOTE | 2018-10-14 07:49 | CP.PCM.PN ---
<Eric Kennedy - Last Filed: 10/14/18 14:45> Subjective - Date & Time of Evaluation Date of Evaluation: 10/14/18 Time of Evaluation: 07:46 - Subjective Subjective: Surgery Progress Note for Dr. Lozada 68M seen and evaluated at bedside this morning. Patient had elevated BP and tachycardic yesterday, received pain medication and 10mg hydralizine. No complaints this morning except abd pain at surgical sites. Denies passing of flatus or BM from colostomy. Currently NPO, with NGT. NGT readjusted this morning w/ 200cc bilious output noted. Moore 550cc overnight. Davin 10cc serosanguinous output overnight. Denies f/c, n/v/d, SOB, CP, or urinary symptoms. Objective - Vital Signs/Intake and Output Vital Signs (last 24 hours): Temp Pulse Resp BP Pulse Ox 98.1 F 106 H 18 176/92 H 97 10/13/18 23:30 10/13/18 23:30 10/13/18 23:30 10/13/18 23:30 10/13/18 23:30 Intake and Output: 10/14/18 10/14/18 06:59 18:59 Intake Total 2100 Output Total 685 Balance 1415 - Medications Medications: Current Medications Artificial Tears (Artificial Tears) 1 ml OU BID [facility] Last Admin: 10/13/18 18:29 Dose: 1 drop Enoxaparin Sodium (Lovenox) 40 mg SC DAILY [facility] Last Admin: 10/13/18 12:11 Dose: 40 mg Famotidine (Pepcid) 20 mg IVP Q12 [facility] Last Admin: 10/13/18 21:29 Dose: 20 mg Ferric Sodium Gluconate Complex (Ferrlecit) 125 mg IVPB DAILY [facility] Stop: 10/14/18 10:01 Last Admin: 10/13/18 10:41 Dose: 125 mg Hydromorphone HCl (Dilaudid) 0.5 mg IVP Q3H PRN PRN Reason: Pain, severe (8-10) Last Admin: 10/14/18 05:56 Dose: 0.5 mg Sodium Chloride (Sodium Chloride 0.9%) 1,000 mls @ 125 mls/hr IV .Q8H [facility] Last Admin: 05/25/19 05:44 Dose: 125 mls/hr Meropenem 1 gm/ Sodium (Chloride) 100 mls @ 100 mls/hr IVPB Q8H [facility]; Protocol Last Admin: 10/14/18 05:44 Dose: 100 mls/hr BUPIVACAINE 0.125%/0.9% NACL (Bupivacaine-Ns 0.125% On-Q Floor Steward/Stewardess) 600 mls @ 4 mls /hr IJ ONCE ONE Stop: 10/19/18 15:59 Lidocaine (Lidoderm) 1 ea TD DAILY [facility] Last Admin: 10/13/18 10:41 Dose: 1 ea Pantoprazole Sodium (Protonix Inj) 40 mg IVP DAILY [facility] Last Admin: 10/13/18 10:20 Dose: 40 mg - Labs Labs: 10/13/18 06:30 10/13/18 06:30 PT 15.0 SECONDS (9.7-12.2) H 10/11/18 19:35 INR 1.4 10/11/18 19:35 APTT 26.8 SECONDS (21-34) 10/11/18 19:35 - Constitutional Appears: Well, Non-toxic, No Acute Distress - Head Exam Head Exam: ATRAUMATIC, NORMAL INSPECTION, NORMOCEPHALIC - Eye Exam Eye Exam: EOMI Pupil Exam: PERRL - ENT Exam ENT Exam: Mucous Membranes Dry - Respiratory Exam Respiratory Exam: NORMAL BREATHING PATTERN. absent: Wheezes, Respiratory Distress - GI/Abdominal Exam GI & Abdominal Exam: Distended, Soft, Tenderness, Normal Bowel Sounds Additional comments: colostomy pink, patent, with bowel sweat - no stool or gas LYLE 10cc serosanguinous output NGT 25cc bilious output - Exam Additional comments: Moore in place with serosanguinous 550cc output over 12 hours - Neurological Exam Neurological Exam: Alert, Awake, Oriented x3 - Psychiatric Exam Psychiatric exam: Normal Affect, Normal Mood - Skin Skin Exam: Dry, Intact, Normal Color, Warm Additional comments: midline surgical incision c/d/i - aquacel in place Drain site c/d/i Assessment and Plan - Assessment and Plan (Free Text) Assessment: 68M s/p ex lap and Alyse's for nearly obstructing colon mass POD3 Plan: NGT in place, monitor output: can clamp for ambulating - readjusted this morning. keep at 100mmHg cont wall suction Will consider d/c NGT when bowel function returns Continue moore for 1 week post op per urology recs Cont abx per ID Davin drain in place, monitor output Cont IVF Elevated BP - will started amlodipine 5mg daily Encourage OOBTC/ambulation/IS use Protonix for GI PPX Further recs per Dr. Kierra Kennedy PGY1 <Otilio Lozada - Last Filed: 10/16/18 21:03> Objective - Vital Signs/Intake and Output Vital Signs (last 24 hours): Temp Pulse Resp BP Pulse Ox 97.3 F L 90 20 144/87 98 10/16/18 15:00 10/16/18 15:00 10/16/18 15:00 10/16/18 15:00 10/16/18 15:00 Intake and Output: 10/16/18 10/17/18 18:59 06:59 Intake Total 1340 Output Total 830 Balance 510 - Medications Medications: Current Medications Amlodipine Besylate (Norvasc) 5 mg PO DAILY [facility] Last Admin: 10/16/18 10:17 Dose: 5 mg Artificial Tears (Artificial Tears) 1 ml OU BID [facility] Last Admin: 10/16/18 17:41 Dose: 1 drop Enoxaparin Sodium (Lovenox) 40 mg SC DAILY [facility] Last Admin: 10/16/18 10:07 Dose: 40 mg Famotidine (Pepcid) 20 mg IVP Q12 [facility] Last Admin: 10/16/18 10:10 Dose: 20 mg Hydromorphone HCl (Dilaudid) 1 mg IVP Q3H PRN PRN Reason: Pain, severe (8-10) Last Admin: 10/16/18 17:49 Dose: 1 mg Meropenem 1 gm/ Sodium (Chloride) 100 mls @ 100 mls/hr IVPB Q8H [facility]; Protocol Last Admin: 10/16/18 13:28 Dose: 100 mls/hr BUPIVACAINE 0.125%/0.9% NACL (Bupivacaine-Ns 0.125% On-Q Floor Steward/Stewardess) 600 mls @ 4 mls/hr IJ ONCE ONE Stop: 10/19/18 15:59 Potassium Chloride/Dextrose/Sod Cl (Potassium Chl 40 Meq In D5-1/2ns) 1,000 mls @ 100 mls/hr IV .Q10H [facility] Last Admin: 10/16/18 19:54 Dose: 100 mls/hr Lactobacillus Acidophilus (Lactobacillus) 1 cap PO Q12H [facility] Last Admin: 10/16/18 14:15 Dose: 1 cap Lidocaine (Lidoderm) 1 ea TD DAILY [facility] Last Admin: 10/16/18 10:07 Dose: 1 ea - Labs Labs: 10/16/18 09:06 10/16/18 09:06 PT 15.0 SECONDS (9.7-12.2) H 10/11/18 19:35 INR 1.4 10/11/18 19:35 APTT 26.8 SECONDS (21-34) 10/11/18 19:35 Attending/Attestation - Attestation I have personally seen and examined this patient.: Yes I have fully participated in the care of the patient.: Yes I have reviewed all pertinent clinical information, including history, physical exam and plan: Yes Notes (Text): Pt was seen and examined at bedside Agree with above note and assessment Pt is improving clinically Colostomy is viable C/w IV antibiotics c.w current mx DC NG tube in am Plan d.w pt in detail .
[2018-10-14 08:10] LABS: ALB/GLOB RATIO 0.9 (1.0-2.1); ALBUMIN 2.6 g/dL (3.5-5.0); ALT/SGPT 28 U/L (21-72); AST/SGOT 35 U/L (17-59); BLOOD UREA NITROGEN 9 mg/dL (9-20); CALCIUM 8.3 mg/dl (8.6-10.4); GFR NON-AFRICAN AMERICAN > 60
[2018-10-14 08:12] LABS: BASO % 0.4 % (0.0-2.0); EOS % 0.3 % (0.0-4.0); HEMOGLOBIN 8.6 g/dL (12.0-18.0); LYMPH # 1.8 K/uL (1.0-4.3); LYMPH % 14.4 % (20.0-40.0); MEAN CELL VOLUME 74.2 fL (80.0-94.0); MEAN CORPUSCULAR HEMOGLOBIN 23.8 pg (27.0-31.0); MEAN CORPUSCULAR HGB CONC 32.1 g/dL (33.0-37.0); MEAN PLATELET VOLUME 7.8 fL (7.2-11.7); MONO # 0.9 K/uL (0.0-0.8); MONO % 6.9 % (0.0-10.0); NEUT # 9.9 K/uL (1.8-7.0); RBC 3.61 Mil/uL (4.40-5.90); RED CELL DISTRIBUTION WIDTH 17.7 % (11.5-14.5); WHITE BLOOD COUNT 12.7 K/uL (4.8-10.8)
[2018-10-14] MEDS: Ferric Sodium Gluconat Complex 62.5 mg/5 ml Vial IVPB SCH (09:49)
[2018-10-14] MEDS: Aritificial Tears (15ml) OU SCH ×2 (09:51→18:01)
[2018-10-14] MEDS: Potassium Chloride 20 mEq ER Tab PO ONE ×2 (09:52→11:58)
[2018-10-14] MEDS: Enoxaparin 40 mg Syringe SC SCH (09:53)
[2018-10-14] MEDS: Lidocaine 5% Patch TD SCH (09:54)
[2018-10-14] MEDS ORDERED: Metoprolol 1 mg/ml Inj IVP PRN (10:38)
[2018-10-14] MEDS ORDERED: HYDROmorphone 0.5 mg/0.5 ml ISec IVP STA (12:07)
--- NOTE | 2018-10-14 14:33 | CP.PCM.PN ---
Subjective - Date & Time of Evaluation Date of Evaluation: 10/14/18 Time of Evaluation: 14:36 - Subjective Subjective: PGY-[address] Calle Patient seen and examined at bedside. No acute events overnight. Patient still c/o abdominal pain - dilaudid increased. Moore, davin, colostomy, NGT in place. Patient denies fevers, chills, headahce, n/v, chest pain, fatigue. Objective - Vital Signs/Intake and Output Vital Signs (last 24 hours): Temp Pulse Resp BP Pulse Ox 97.8 F 97 H 20 170/90 H 97 10/14/18 07:00 10/14/18 10:00 10/14/18 07:00 10/14/18 07:00 10/14/18 07:00 Intake and Output: 10/14/18 10/14/18 06:59 18:59 Intake Total 2100 Output Total 685 Balance 1415 - Medications Medications: Current Medications Artificial Tears (Artificial Tears) 1 ml OU BID [facility] Last Admin: 10/14/18 09:51 Dose: 1 drop Enoxaparin Sodium (Lovenox) 40 mg SC DAILY [facility] Last Admin: 10/14/18 09:53 Dose: 40 mg Famotidine (Pepcid) 20 mg IVP Q12 [facility] Last Admin: 10/14/18 09:51 Dose: 20 mg Hydromorphone HCl (Dilaudid) 1 mg IVP Q3H PRN PRN Reason: Pain, severe (8-10) Sodium Chloride (Sodium Chloride 0.9%) 1,000 mls @ 125 mls/hr IV .Q8H [facility] Last Admin: 10/14/18 12:00 Dose: 125 mls/hr Meropenem 1 gm/ Sodium (Chloride) 100 mls @ 100 mls/hr IVPB Q8H [facility]; Protocol Last Admin: 10/14/18 12:00 Dose: 100 mls/hr BUPIVACAINE 0.125%/0.9% NACL (Bupivacaine-Ns 0.125% On-Q Manager Of Drilling) 600 mls @ 4 mls/hr IJ ONCE ONE Stop: 10/19/18 15:59 Potassium Chloride (Potassium Chloride 20 Meq/100 Ml) 20 meq in 100 mls @ 50 mls/hr IVPB Q2H [facility] Stop: 10/14/18 14:29 Last Admin: 10/14/18 11:57 Dose: 50 mls/hr Lidocaine (Lidoderm) 1 ea TD DAILY [facility] Last Admin: 10/14/18 09:54 Dose: 1 ea Pantoprazole Sodium (Protonix Inj) 40 mg IVP DAILY [facility] Last Admin: 10/14/18 09:51 Dose: 40 mg - Labs Labs: 10/14/18 07:51 10/14/18 07:51 PT 15.0 SECONDS (9.7-12.2) H 10/11/18 19:35 INR 1.4 10/11/18 19:35 APTT 26.8 SECONDS (21-34) 10/11/18 19:35 - Constitutional Appears: Non-toxic, No Acute Distress - Head Exam Head Exam: ATRAUMATIC, NORMOCEPHALIC - Eye Exam Eye Exam: EOMI, Normal appearance - ENT Exam ENT Exam: Mucous Membranes Moist - Respiratory Exam Respiratory Exam: Clear to Ausculation Bilateral, NORMAL BREATHING PATTERN. absent: Rales, Rhonchi, Wheezes - Cardiovascular Exam Cardiovascular Exam: REGULAR RHYTHM, +S1, +S2 - GI/Abdominal Exam GI & Abdominal Exam: Soft, Tenderness, Normal Bowel Sounds. absent: Distended Additional comments: Dressings covered in some abdominal drainage Davin draining minimal serosanguinous fluid Colostomy draining serosanguinous fluid NGT suctioning dark bilious fluid, about 100cc - Exam Additional comments: Moore draining muddy yellow/brown urine - Extremities Exam Extremities Exam: Normal Inspection. absent: Pedal Edema, Tenderness - Neurological Exam Neurological Exam: Alert, Awake, Oriented x3 - Psychiatric Exam Psychiatric exam: Normal Affect, Normal Mood - Skin Skin Exam: Dry, Intact Assessment and Plan - Assessment and Plan (Free Text) Assessment: Assessment: 68 yo male with no known PMhx presented to the ED with c/o abdominal pain, diarrhea, urinary frequency and urgency, and foul-smelling urine, was found to have complex sigmoid mass with colovesicular fistula now POD#2 s/p laparotomy with rectosigmoid mass resection with colostomy, and cystoscopy with b/l ureteral stent placement. Plan: Sigmoid mass with colovesicular fistula -CT A/P w/IV and PO contrast 10/08: 11 x 8 x 6 mm complex cystic mass in sigmoid colon compatible with malignancy, demonstrating solid and cystic chronic components. Associated invasion of the urinary bladder with suspicion for a colovesicular fistula. 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 --Bowel rest except meds per surgry --f/u path results --Pain management: Dilaudid increased to 1mg Q3 prn Dysuria, hematuria 2/2 fistula -Urology consulted, Dr. Jabari Charles, recs appreciated -Plan for moore to be in place for 1 week -U/a positive for UTI, urine cx negative -Testicular U/s done due to pt c/o testicular pain on day of admission, denies pain in area currently -Testicular U/s: Mild heterogeneity to the L testicular echotexture without any definitive focal mass identified. This echotexture and depicted images with flow show the L testicule having less anterior 1/2 vascular flow compared to the R testicle per sagittal images. The close clinical significance of this appearance, if any - is unclear. L epididymal head cysts. Leukocytosis -ID consulted, Dr. Zamudio, appreciate recs -Blood cultures NG x 5 days -Urine cultures no growth -Stool studies (stool leukocytes, fecal occult, cultures) negative -Procal neg -NS @ 125 cc/hr -Abdominal fluid cultures growing Klebsiella --Merrem 1 g q8h started by ID on 10/12/18 (-Zosyn/Flagyl d/c'd) Iron deficiency anemia, Elevated INR -Pepcid 20 mg IVP bid -S/p transfusion of 2 FFP and 2 unit PRBC -Dr. Lizarraga consulted, Heme/Onc, recs appreciated -IV Ferrlecit x 3 doses - completed -Cont to trend H/H Hypokalemia -Monitor and replete Pulmonary Nodule on CXR -CXR 10/09: No acute findings identified. 6 mm probable calcified nodule, left mid lung zone. 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 Alva Ross, PGY-1
[2018-10-14] MEDS: HYDROmorphone 1 mg/ml ISec IVP PRN (21:36)
[2018-10-15] MEDS: HYDROmorphone 1 mg/ml ISec IVP PRN ×4 (02:15→16:27)
[2018-10-15] MEDS: Meropenem 1 GM in Sodium Chloride 0.9% 100 ML IVPB SCH ×3 (05:49→20:46)
[2018-10-15] MEDS: Sodium Chloride 0.9% 1,000 ML IV SCH (05:49)
--- NOTE | 2018-10-15 07:41 | CP.PCM.PN ---
<Yehuda Cha - Last Filed: 10/15/18 07:58> Subjective - Date & Time of Evaluation Date of Evaluation: 10/15/18 Time of Evaluation: 07:58 - Subjective Subjective: Surgery Progress Note for Dr. Lozada Patient seen and evaluated at bedside this morning. No acute event overnight. Patietn reports improvement of abd pain at surgical sites. Denies passing flatus or BM. NGT removed this AM. Patient remains NPO. NGT had about 180 cc bilious output noted. Moore with 2900cc/24hrs. Davin had 25cc of serosanguinous output. Colostomy with 100cc of liquid stool. Denies f/c, n/v/d, SOB, CP, or urinary symptoms. Objective - Vital Signs/Intake and Output Vital Signs (last 24 hours): Temp Pulse Resp BP Pulse Ox 97.5 F L 85 20 160/79 H 98 10/14/18 23:25 10/15/18 00:05 10/14/18 23:25 10/14/18 23:25 10/14/18 23:25 Intake and Output: 10/15/18 10/15/18 06:59 18:59 Intake Total 1000 Output Total 3105 Balance -2105 - Medications Medications: Current Medications Amlodipine Besylate (Norvasc) 5 mg PO DAILY [facility] Last Admin: 10/14/18 19:44 Dose: 5 mg Artificial Tears (Artificial Tears) 1 ml OU BID [facility] Last Admin: 10/14/18 18:01 Dose: 1 drop Enoxaparin Sodium (Lovenox) 40 mg SC DAILY [facility] Last Admin: 10/14/18 09:53 Dose: 40 mg Famotidine (Pepcid) 20 mg IVP Q12 [facility] Last Admin: 10/14/18 22:00 Dose: 20 mg Hydromorphone HCl (Dilaudid) 1 mg IVP Q3H PRN PRN Reason: Pain, severe (8-10) Last Admin: 10/14/18 21:36 Dose: 1 mg Sodium Chloride (Sodium Chloride 0.9%) 1,000 mls @ 125 mls/hr IV .Q8H [facility] Last Admin: 10/15/18 05:49 Dose: 125 mls/hr Meropenem 1 gm/ Sodium (Chloride) 100 mls @ 100 mls/hr IVPB Q8H [facility]; Protocol Last Admin: 10/15/18 05:49 Dose: 100 mls/hr BUPIVACAINE 0.125%/0.9% NACL (Bupivacaine-Ns 0.125% On-Q Tire Room Supervisor) 600 mls @ 4 mls/hr IJ ONCE ONE Stop: 10/19/18 15:59 Lidocaine (Lidoderm) 1 ea TD DAILY [facility] Last Admin: 10/14/18 09:54 Dose: 1 ea Pantoprazole Sodium (Protonix Inj) 40 mg IVP DAILY [facility] Last Admin: 10/14/18 09:51 Dose: 40 mg - Labs Labs: 10/14/18 07:51 10/14/18 07:51 PT 15.0 SECONDS (9.7-12.2) H 10/11/18 19:35 INR 1.4 10/11/18 19:35 APTT 26.8 SECONDS (21-34) 10/11/18 19:35 - Additional Findings Additional findings: - Constitutional Appears: Well, Non-toxic, No Acute Distress - Head Exam Head Exam: ATRAUMATIC, NORMAL INSPECTION, NORMOCEPHALIC - Eye Exam Eye Exam: EOMI Pupil Exam: PERRL - ENT Exam ENT Exam: Mucous Membranes Dry - Respiratory Exam Respiratory Exam: NORMAL BREATHING PATTERN. absent: Wheezes, Respiratory Distress - GI/Abdominal Exam GI & Abdominal Exam: Distended, Soft, Tenderness, Normal Bowel Sounds Additional comments: colostomy pink, patent, liquid stool davin 25cc serosanguinous output - Exam Additional comments: Moore in place with 2900cc output over 12 hours - Neurological Exam Neurological Exam: Alert, Awake, Oriented x3 - Psychiatric Exam Psychiatric exam: Normal Affect, Normal Mood - Skin Skin Exam: Dry, Intact, Normal Color, Warm Additional comments: midline surgical incision c/d/i - aquacel in place Drain site c/d/i Assessment and Plan - Assessment and Plan (Free Text) Assessment: 68M s/p ex lap and Alyse's for nearly obstructing colon mass POD#4 Plan: NGT discontinued Continue moore for 1 week post op per urology recs IV abx Davin drain in place, monitor output IVF amlodipine 5mg daily pain control Strict I's & O's Encourage OOBTC/ambulation/IS use Protonix for GI PPX Further recs per Dr. Kierra Cha PGY2 <Otilio Lozada B - Last Filed: 10/16/18 21:04> Objective - Vital Signs/Intake and Output Vital Signs (last 24 hours): Temp Pulse Resp BP Pulse Ox 97.3 F L 90 20 144/87 98 10/16/18 15:00 10/16/18 15:00 10/16/18 15:00 10/16/18 15:00 10/16/18 15:00 Intake and Output: 10/16/18 10/17/18 18:59 06:59 Intake Total 1340 Output Total 830 Balance 510 - Medications Medications: Current Medications Amlodipine Besylate (Norvasc) 5 mg PO DAILY [facility] Last Admin: 10/16/18 10:17 Dose: 5 mg Artificial Tears (Artificial Tears) 1 ml OU BID [facility] Last Admin: 10/16/18 17:41 Dose: 1 drop Enoxaparin Sodium (Lovenox) 40 mg SC DAILY [facility] Last Admin: 10/16/18 10:07 Dose: 40 mg Famotidine (Pepcid) 20 mg IVP Q12 [facility] Last Admin: 10/16/18 10:10 Dose: 20 mg Hydromorphone HCl (Dilaudid) 1 mg IVP Q3H PRN PRN Reason: Pain, severe (8-10) Last Admin: 10/16/18 17:49 Dose: 1 mg Meropenem 1 gm/ Sodium (Chloride) 100 mls @ 100 mls/hr IVPB Q8H [facility]; Protocol Last Admin: 10/16/18 13:28 Dose: 100 mls/hr BUPIVACAINE 0.125%/0.9% NACL (Bupivacaine-Ns 0.125% On-Q [employer] Room Supervisor) 600 mls @ 4 mls/hr IJ ONCE ONE Stop: 10/19/18 15:59 Potassium Chloride/Dextrose/Sod Cl (Potassium Chl 40 Meq In D5-1/2ns) 1,000 mls @ 100 mls/hr IV .Q10H [facility] Last Admin: 10/16/18 19:54 Dose: 100 mls/hr Lactobacillus Acidophilus (Lactobacillus) 1 cap PO Q12H [facility] Last Admin: 10/16/18 14:15 Dose: 1 cap Lidocaine (Lidoderm) 1 ea TD DAILY [facility] Last Admin: 10/16/18 10:07 Dose: 1 ea - Labs Labs: 10/16/18 09:06 10/16/18 09:06 PT 15.0 SECONDS (9.7-12.2) H 10/11/18 19:35 INR 1.4 10/11/18 19:35 APTT 26.8 SECONDS (21-34) 10/11/18 19:35 Attending/Attestation - Attestation I have fully participated in the care of the patient.: Yes I have reviewed all pertinent clinical information, including history, physical exam and plan: Yes Notes (Text): Pt is stable clinically DC NG tube Start liquid diet OOB to walk c.w current mx Plan d.w primary team in detail.
--- NOTE | 2018-10-15 07:50 | CP.PCM.PN ---
Objective - Vital Signs/Intake and Output Vital Signs (last 24 hours): Temp Pulse Resp BP Pulse Ox 97.5 F L 85 20 160/79 H 98 10/14/18 23:25 10/15/18 00:05 10/14/18 23:25 10/14/18 23:25 10/14/18 23:25 Intake and Output: 10/15/18 10/15/18 06:59 18:59 Intake Total 1000 Output Total 3105 Balance -2105 - Medications Medications: Current Medications Amlodipine Besylate (Norvasc) 5 mg PO DAILY [facility] Last Admin: 10/14/18 19:44 Dose: 5 mg Artificial Tears (Artificial Tears) 1 ml OU BID [facility] Last Admin: 10/14/18 18:01 Dose: 1 drop Enoxaparin Sodium (Lovenox) 40 mg SC DAILY [facility] Last Admin: 10/14/18 09:53 Dose: 40 mg Famotidine (Pepcid) 20 mg IVP Q12 [facility] Last Admin: 10/14/18 22:00 Dose: 20 mg Hydromorphone HCl (Dilaudid) 1 mg IVP Q3H PRN PRN Reason: Pain, severe (8-10) Last Admin: 10/14/18 21:36 Dose: 1 mg Sodium Chloride (Sodium Chloride 0.9%) 1,000 mls @ 125 mls/hr IV .Q8H [facility] Last Admin: 10/15/18 05:49 Dose: 125 mls/hr Meropenem 1 gm/ Sodium (Chloride) 100 mls @ 100 mls/hr IVPB Q8H [facility]; Protocol Last Admin: 10/15/18 05:49 Dose: 100 mls/hr BUPIVACAINE 0.125%/0.9% NACL (Bupivacaine-Ns 0.125% On-Q Manager Drug) 600 mls @ 4 mls/hr IJ ONCE ONE Stop: 10/19/18 15:59 Lidocaine (Lidoderm) 1 ea TD DAILY [facility] Last Admin: 10/14/18 09:54 Dose: 1 ea Pantoprazole Sodium (Protonix Inj) 40 mg IVP DAILY [facility] Last Admin: 10/14/18 09:51 Dose: 40 mg - Labs Labs: 10/14/18 07:51 10/14/18 07:51 PT 15.0 SECONDS (9.7-12.2) H 10/11/18 19:35 INR 1.4 10/11/18 19:35 APTT 26.8 SECONDS (21-34) 10/11/18 19:35
[2018-10-15] MEDS: Aritificial Tears (15ml) OU SCH ×2 (09:33→19:25)
[2018-10-15] MEDS: Enoxaparin 40 mg Syringe SC SCH (09:35)
[2018-10-15] MEDS: Lidocaine 5% Patch TD SCH (09:36)
--- NOTE | 2018-10-15 10:16 | CP.PCM.PN ---
Subjective - Date & Time of Evaluation Date of Evaluation: 10/15/18 Time of Evaluation: 09:45 - Subjective Subjective: Medical attending Note: Patient seen and examined this morning. Output from the NGT noted 550cc. Patient had his NGT tube removed by surgery team. Patient reports he had 4 burps. Patient denies flatus. He denies chest pain, denies palpitations, denies shortness of breathe, he reports he is taking the pain medication but he missed his dose this morning. Patient reports abdominal pain is about 7/10 on pain scale, when I touch his belly it is improved. The moore shows yellow urine about 300 cc as guestimation. Patient is going to be moved tot chair today. Objective - Vital Signs/Intake and Output Vital Signs (last 24 hours): Temp Pulse Resp BP Pulse Ox 97.5 F L 82 20 160/79 H 95 10/14/18 23:25 10/15/18 08:34 10/14/18 23:25 10/14/18 23:25 10/15/18 09:56 Intake and Output: 10/15/18 10/15/18 06:59 18:59 Intake Total 1000 Output Total 3105 Balance -2105 - Medications Medications: Current Medications Amlodipine Besylate (Norvasc) 5 mg PO DAILY [facility] Last Admin: 10/15/18 09:37 Dose: 5 mg Artificial Tears (Artificial Tears) 1 ml OU BID [facility] Last Admin: 10/15/18 09:33 Dose: 1 drop Enoxaparin Sodium (Lovenox) 40 mg SC DAILY [facility] Last Admin: 10/15/18 09:35 Dose: 40 mg Famotidine (Pepcid) 20 mg IVP Q12 [facility] Last Admin: 10/15/18 09:35 Dose: 20 mg Hydromorphone HCl (Dilaudid) 1 mg IVP Q3H PRN PRN Reason: Pain, severe (8-10) Last Admin: 10/15/18 09:33 Dose: 1 mg Meropenem 1 gm/ Sodium (Chloride) 100 mls @ 100 mls/hr IVPB Q8H [facility]; Protocol Last Admin: 10/15/18 05:49 Dose: 100 mls/hr BUPIVACAINE 0.125%/0.9% NACL (Bupivacaine-Ns 0.125% On-Q Supervisor Shearing) 600 mls @ 4 mls/hr IJ ONCE ONE Stop: 10/19/18 15:59 Potassium Chloride/Dextrose/Sod Cl (Potassium Chl 40 Meq In D5-1/2ns) 1,000 mls @ 100 mls/hr IV .Q10H [facility] Lidocaine (Lidoderm) 1 ea TD DAILY [facility] Last Admin: 10/15/18 09:36 Dose: 1 ea Pantoprazole Sodium (Protonix Inj) 40 mg IVP DAILY [facility] Last Admin: 10/15/18 09:34 Dose: 40 mg - Labs Labs: 10/14/18 07:51 10/14/18 07:51 PT 15.0 SECONDS (9.7-12.2) H 10/11/18 19:35 INR 1.4 10/11/18 19:35 APTT 26.8 SECONDS (21-34) 10/11/18 19:35 - Constitutional Appears: Non-toxic, No Acute Distress - Head Exam Head Exam: NORMAL INSPECTION - Eye Exam Eye Exam: EOMI - ENT Exam ENT Exam: Mucous Membranes Moist - Respiratory Exam Respiratory Exam: Rales, NORMAL BREATHING PATTERN. absent: Stridor Additional comments: trace bibasilar rales - Cardiovascular Exam Cardiovascular Exam: REGULAR RHYTHM, +S1, +S2 - GI/Abdominal Exam GI & Abdominal Exam: Guarding, Soft, Hypoactive Bowel Sounds. absent: Dis tended, Rigid, Hernia, Mass Additional comments: patient has midline dressing (puckering noted) over the right corner. Patient has jpeg drain on Right lower quadrant. Patient is has ostomy over the LLQ; bowel is pink, serosaguinous. 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 Kuhn) salon receptionist help appreciated * GI has signed off * General surgery (Dr. Lozada) salon receptionist help appreciated * Preoperative/intraoperative/postoperative management per surgery * Infectious Disease (Dr. Zamudio) salon receptionist help appreciated * Dr. Duran (Nik-onc) salon receptionist help appreciated * Images reviewed and no radiological findings of distant spread at this time, will await for final pathology to determine staging. 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 * Will follow up after final pathology is available which will determine further adjuvant treatment. * CT Chest (10/11/18): calcified granuloma in the left lobe as well as subcarinal calcified lymph node compatible with old granulomatous infection. * CT A/P w/ IV and PO contrast 10/08: 11 x 8 x 6 mm complex cystic mass in sigmoid colon compatible malignancy., demonstrating solid and cystic chronic components. Associated invasion of the urinary bladder with suspicion for a colovesical fistula * Patient underwent sigmoidoscopy 10/10 * Pathology: adenocarcinoma, arising in the adenoma * Patient underwent exploratory laparotomy, rectosigmoid mass, colostomy creation, omentopexy, placement of on Q cathter * Followup: pathology og rectosigmoid mass, Abdominal culture noted. * IV Abx: Zosyn 3.375 g IV Q6h (started 10/09/18) and Flagyl 500 mg IV Q8h (started 10/09/18) * Discontinued * Meropenem 1gram IVPB Q8H (active since 10/12/18) * Urology (Dr. Ady Charles) salon receptionist help appreciated * 10/11/18: cystoscopy, bilateral retrograde pyelogram, cystogram, and insertion of Moore catheter * Placement of 2 double J stents in left ad right, and moore placed * noted debris in bladder and multiple lesions * in 1 week for cystoscopy and stent removal Abdominal Culture: Klebsiella + Assessment/Plan * Infectious disease (Dr. Zamudio) on board * Blood cultures (10/09/18): negative * Urine culture (10/10/18): no growth * Stool sample: no salmonella, no shigella, no camplyobacter * Abdominal Fluid (10/11/18): Klebsiella pneumoniae X2 * Procalcitonin <0.05 * IV Abx: Zosyn 3.375 g IV Q6h (started 10/09/18) and Flagyl 500 mg IV Q8h (started 10/09/18) discontinued by ID * Meropenem 1gram IVPB Q8H (active since 10/12/18) Anemia, Acute Assessment/Plan * Dr. Duran (Nik-onc) salon receptionist help appreciated * Microcytic, possible 2/2 GI bleed from colonic mass * Iron studies demonstrate iron-deficiency anemia * Cont to trend H/H * Pepcid 20 mg IVP bid * Patient required 2 units of FFP for elevated INR (1.7), 1 unit of PRBC given the OR. * Patient given IV ferriclet X3 by heme-oncologist * Patient underwent sigmoidoscopy 10/10 * Pathology: adenocarcinoma, arising in the adenoma * Patient underwent exploratory laparotomy, rectosigmoid mass, colostomy creation, omentopexy, placement of on Q cathter * Followup: pathology og rectosigmoid mass, Abdominal culture noted. BRBPR Assessment/Plan * GI consulted, katina Nails appreciated * Stool occult positive for blood * Patient underwent sigmoidoscopy 10/10 * Pathology: adenocarcinoma, arising in the adenoma Hypokalemia * Resolved, cont to monitor Dysuria, hematuria 2/2 fistula * Urology consulted, katina Quiñones appreciated * U/a positive for UTI, urine culture: no growth * Testicular U/s done due to pt c/o testicular pain on admission, noting pain resolved * Will need f/u cystscopy in one week Pulmonary Nodule on CXR * CXR 10/09: No acute findings identified. 6 mm probable calcified nodule, left mid lung zone. * CT chest (10/11/18): calcifed granuloma in the left lobe as well as subcarinla calcifed lymph node compatible with old granulomatous infection * Can f/u outpatient PPX * DVT ppx c/i contraindicated 2/2 anemia, GI bleed * Pepcid 20 mg IVP q12h * lovenox 40mg subq daily Disposition: f/u pathology from surgery 10/11/18 to allow treatment plan to be created by oncologist, f f/u with urology to determine for cystoscopy and stent removal should be around ; f/u surgery team regarding wound dressing care, continue to trend H/H patient will need to apply for [facility] since he is without insurance patient has newly created ostomy; monitor output noted in surgery resident noted had liquid stool
[2018-10-15] MEDS ORDERED: Potassium Chloride 20 mEq ER Tab PO STA (10:40)
[2018-10-15] MEDS ORDERED: Potassium & Sodium Phosphate PO ONE (10:45)
[2018-10-15] MEDS: Potassium Chl 40 mEq in D5-1/2 1,000 ML IV SCH ×2 (11:15→20:57)
--- NOTE | 2018-10-15 16:45 | CP.PCM.PN ---
Subjective - Date & Time of Evaluation Date of Evaluation: 10/15/18 Time of Evaluation: 08:00 - Subjective Subjective: improving NGT out awake alert afebrile Objective - Vital Signs/Intake and Output Vital Signs (last 24 hours): Temp Pulse Resp BP Pulse Ox 97.4 F L 104 H 20 164/92 H 98 10/15/18 15:57 10/15/18 15:57 10/15/18 15:57 10/15/18 15:57 10/15/18 15:57 Intake and Output: 10/15/18 10/15/18 06:59 18:59 Intake Total 1000 1040 Output Total 3105 1115 Balance -2105 -75 - Medications Medications: Current Medications Amlodipine Besylate (Norvasc) 5 mg PO DAILY [facility] Last Admin: 10/15/18 09:37 Dose: 5 mg Artificial Tears (Artificial Tears) 1 ml OU BID [facility] Last Admin: 10/15/18 09:33 Dose: 1 drop Enoxaparin Sodium (Lovenox) 40 mg SC DAILY [facility] Last Admin: 10/15/18 09:35 Dose: 40 mg Famotidine (Pepcid) 20 mg IVP Q12 [facility] Last Admin: 10/15/18 09:35 Dose: 20 mg Hydromorphone HCl (Dilaudid) 1 mg IVP Q3H PRN PRN Reason: Pain, severe (8-10) Last Admin: 10/15/18 16:27 Dose: 1 mg Meropenem 1 gm/ Sodium (Chloride) 100 mls @ 100 mls/hr IVPB Q8H [facility]; Protocol Last Admin: 10/15/18 13:06 Dose: 100 mls/hr BUPIVACAINE 0.125%/0.9% NACL (Bupivacaine-Ns 0.125% On-Q Ship Fitter) 600 mls @ 4 mls/hr IJ ONCE ONE Stop: 10/19/18 15:59 Potassium Chloride/Dextrose/Sod Cl (Potassium Chl 40 Meq In D5-1/2ns) 1,000 mls @ 100 mls/hr IV .Q10H [facility] Last Admin: 10/15/18 11:15 Dose: 100 mls/hr Lidocaine (Lidoderm) 1 ea TD DAILY [facility] Last Admin: 10/15/18 09:36 Dose: 1 ea Pantoprazole Sodium (Protonix Inj) 40 mg IVP DAILY [facility] Last Admin: 10/15/18 09:34 Dose: 40 mg - Labs Labs: 10/14/18 07:51 10/14/18 07:51 PT 15.0 SECONDS (9.7-12.2) H 10/11/18 19:35 INR 1.4 10/11/18 19:35 APTT 26.8 SECONDS (21-34) 10/11/18 19:35 - Constitutional Appears: Non-toxic, No Acute Distress, Chronically Ill - Head Exam Head Exam: ATRAUMATIC, NORMAL INSPECTION, NORMOCEPHALIC - Eye Exam Eye Exam: EOMI, Normal appearance, PERRL Pupil Exam: NORMAL ACCOMODATION, PERRL - ENT Exam ENT Exam: Mucous Membranes Moist, Normal Exam - Neck Exam Neck Exam: Full ROM, Normal Inspection. absent: Lymphadenopathy - Respiratory Exam Respiratory Exam: Clear to Ausculation Bilateral, NORMAL BREATHING PATTERN - Cardiovascular Exam Cardiovascular Exam: REGULAR RHYTHM, +S1, +S2. absent: Murmur - GI/Abdominal Exam GI & Abdominal Exam: Distended, Soft, Diminished Bowel Sounds. absent: Rigid, Tenderness Additional comments: midline incision healing LLQ colostomy in place - Rectal Exam Rectal Exam: Deferred - Exam Exam: NORMAL INSPECTION - Extremities Exam Extremities Exam: Full ROM, Normal Capillary Refill, Normal Inspection. 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
[2018-10-16] MEDS: HYDROmorphone 1 mg/ml ISec IVP PRN (01:41)
[2018-10-16] MEDS: Meropenem 1 GM in Sodium Chloride 0.9% 100 ML IVPB SCH ×3 (05:37→22:02)
[2018-10-16] MEDS: Potassium Chl 40 mEq in D5-1/2 1,000 ML IV SCH ×3 (06:47→19:54)
--- NOTE | 2018-10-16 07:27 | CP.PCM.PN ---
<OliverRadhaangela L - Last Filed: 10/16/18 18:01> Subjective - Date & Time of Evaluation Date of Evaluation: 10/16/18 Time of Evaluation: 07:26 - Subjective Subjective: Resident Progress Note for Hospitalist Service Patient examined at bedside. No acute events overnight. Patient reports positive flatus. No bowel movement yet. NG tube has been removed and patient is tolerating liquid diet without nausea or vomiting. Abdominal pain is controlled at this time. Further denies fevers, chills, chest pain, shortness of breath. Objective - Vital Signs/Intake and Output Vital Signs (last 24 hours): Temp Pulse Resp BP Pulse Ox 98.7 F 94 H 20 143/87 97 10/15/18 23:20 10/16/18 04:00 10/15/18 23:20 10/15/18 23:20 10/15/18 23:20 Intake and Output: 10/16/18 10/16/18 06:59 18:59 Intake Total 2160 Output Total 1658 Balance 502 - Medications Medications: Current Medications Amlodipine Besylate (Norvasc) 5 mg PO DAILY [facility] Last Admin: 10/15/18 09:37 Dose: 5 mg Artificial Tears (Artificial Tears) 1 ml OU BID [facility] Last Admin: 10/15/18 19:25 Dose: 1 drop Enoxaparin Sodium (Lovenox) 40 mg SC DAILY [facility] Last Admin: 10/15/18 09:35 Dose: 40 mg Famotidine (Pepcid) 20 mg IVP Q12 [facility] Last Admin: 10/15/18 21:54 Dose: 20 mg Hydromorphone HCl (Dilaudid) 1 mg IVP Q3H PRN PRN Reason: Pain, severe (8-10) Last Admin: 10/16/18 06:49 Dose: 1 mg Meropenem 1 gm/ Sodium (Chloride) 100 mls @ 100 mls/hr IVPB Q8H [facility]; Protocol Last Admin: 10/16/18 05:37 Dose: 100 mls/hr BUPIVACAINE 0.125%/0.9% NACL (Bupivacaine-Ns 0.125% On-Q Oil Field Equipment Mechanic) 600 mls @ 4 mls/hr IJ ONCE ONE Stop: 10/19/18 15:59 Potassium Chloride/Dextrose/Sod Cl (Potassium Chl 40 Meq In D5-1/2ns) 1,000 mls @ 100 mls/hr IV .Q10H [facility] Last Admin: 10/16/18 06:47 Dose: Not Given Lidocaine (Lidoderm) 1 ea TD DAILY [facility] Last Admin: 10/15/18 09:36 Dose: 1 ea Pantoprazole Sodium (Protonix Inj) 40 mg IVP DAILY [facility] Last Admin: 10/15/18 09:34 Dose: 40 mg - Labs Labs: 10/14/18 07:51 10/14/18 07:51 PT 15.0 SECONDS (9.7-12.2) H 10/11/18 19:35 INR 1.4 10/11/18 19:35 APTT 26.8 SECONDS (21-34) 10/11/18 19:35 - Constitutional Appears: Non-toxic, No Acute Distress - Head Exam Head Exam: ATRAUMATIC, NORMOCEPHALIC - Eye Exam Eye Exam: EOMI, Normal appearance, PERRL - ENT Exam ENT Exam: Mucous Membranes Moist - Respiratory Exam Respiratory Exam: Clear to Auscultation Bilateral, NORMAL BREATHING PATTERN. absent: Rales, Rhonchi, Wheezes - Cardiovascular Exam Cardiovascular Exam: REGULAR RHYTHM, +S1, +S2. absent: Gallop, Rubs, Murmur - GI/Abdominal Exam GI & Abdominal Exam: Soft, Tenderness, Guarding. absent: Distended, Organomegaly Additional comments: dressing C/D/I colostomy eri drain - Extremities Exam Extremities Exam: Full ROM, Normal Capillary Refill, Normal Inspection. absent: Pedal Edema, Tenderness - Neurological Exam Neurological Exam: Alert, Awake, CN II-XII Intact, Oriented x3 - Skin Skin Exam: Dry, Intact, Warm Assessment and Plan - Assessment and Plan (Free Text) Assessment: 68 yo male with no known PMhx presented to the ED with c/o abdominal pain, diarrhea, urinary frequency and urgency, and foul-smelling urine, was found to have complex sigmoid mass with colovesicular fistula now POD#5 s/p laparotomy with rectosigmoid mass resection with colostomy. Plan: Sigmoid mass with colovesicular fistula, chronic -CT A/P w/IV and PO contrast 10/08: 11 x 8 x 6 mm complex cystic mass in sigmoid colon compatible with malignancy, demonstrating solid and cystic chronic components. Associated invasion of the urinary bladder with suspicion for a colovesicular fistula. 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 Jabari Charles, recs appreciated -U/a positive for UTI, urine cx negative -Testicular U/s done due to pt c/o testicular pain on day of admission, denies pain in area currently -Testicular U/s: Mild heterogeneity to the L testicular echotexture without any definitive focal mass identified. This echotexture and depicted images with flow show the L testicule having less anterior 1/2 vascular flow compared to the R testicle per sagittal images. The close clinical significance of this appearance, if any - is unclear. L epididymal head cysts. Leukocytosis, resolved -Blood cultures NG x 3 days -Urine cultures no growth -Stool studies (stool leukocytes, fecal occult, cultures) negative -Procal neg -Abdominal fluid cultres growing klebsiella -Merrem as per ID recs Iron deficiency anemia, Elevated INR, chronic -Pepcid 20 mg IVP bid -Was transfused 2 FFP and 1 unit PRBC for procedure -Dr. Lizarraga consulted, Heme/Onc; recommends transfuse prn, would benefit from IV Venofer 200 mg IVPB x 3 doses -IV Ferrlecit x 3 doses Hypokalemia, acute -monitor and replete Pulmonary nodule, chronic -CXR 10/09: No acute findings identified. 6 mm probable calcified nodule, left mid lung zone. 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 Also followup social work regarding patient's eligibility for Medicaid. Plan for cystoscopy and stent removal with Dr. Charles Case reviewed with Dr. Leland Oliver PGY-1 <Leland Keith - Last Filed: 10/17/18 19:41> Objective - Vital Signs/Intake and Output Vital Signs (last 24 hours): Temp Pulse Resp BP Pulse Ox 98 F 90 20 140/80 100 10/17/18 15:00 10/17/18 15:00 10/17/18 15:00 10/17/18 15:00 10/17/18 15:00 Intake and Output: 10/17/18 10/18/18 18:59 06:59 Output Total 500 Balance -500 - Medications Medications: Current Medications Amlodipine Besylate (Norvasc) 5 mg PO DAILY [facility] Last Admin: 10/17/18 09:06 Dose: 5 mg Artificial Tears (Artificial Tears) 1 ml OU BID [facility] Last Admin: 10/17/18 18:31 Dose: 1 drop Enoxaparin Sodium (Lovenox) 40 mg SC DAILY [facility] Last Admin: 10/17/18 09:05 Dose: 40 mg Famotidine (Pepcid) 20 mg IVP Q12 [facility] Last Admin: 10/17/18 09:06 Dose: 20 mg Hydromorphone HCl (Dilaudid) 1 mg IVP Q3H PRN PRN Reason: Pain, severe (8-10) Last Admin: 10/17/18 12:23 Dose: 1 mg Meropenem 1 gm/ Sodium (Chloride) 100 mls @ 100 mls/hr IVPB Q8H [facility]; Protocol Last Admin: 10/17/18 13:11 Dose: 100 mls/hr BUPIVACAINE 0.125%/0.9% NACL (Bupivacaine-Ns 0.125% On-Q Oil Field Equipment Mechanic) 600 mls @ 4 mls/hr IJ ONCE ONE Stop: 10/19/18 15:59 Lactobacillus Acidophilus (Lactobacillus) 1 cap PO Q12H [facility] Last Admin: 10/17/18 13:11 Dose: 1 cap Lidocaine (Lidoderm) 1 ea TD DAILY [facility] Last Admin: 10/17/18 09:04 Dose: 1 ea - Labs Labs: 10/17/18 07:09 10/17/18 07:09 PT 15.0 SECONDS (9.7-12.2) H 10/11/18 19:35 INR 1.4 10/11/18 19:35 APTT 26.8 SECONDS (21-34) 10/11/18 19:35 Attending/Attestation - Attestation I have personally seen and examined this patient.: Yes I have fully participated in the care of the patient.: Yes I have reviewed all pertinent clinical information, including history, physical exam and plan: Yes Notes (Text): 10/17/18 19:31 This is a late entry. Care of this patient was gone over in detail with resident Dr. Trinh. Leland Keith D.O.
[2018-10-16 09:15] LABS: BASO # 0.1 K/uL (0.0-0.2); BASO % 1.1 % (0.0-2.0); EOS # 0.3 K/uL (0.0-0.7); EOS % 3.3 % (0.0-4.0); HEMOGLOBIN 9.4 g/dL (12.0-18.0); LYMPH # 2.1 K/uL (1.0-4.3); LYMPH % 20.3 % (20.0-40.0); MEAN CELL VOLUME 73.6 fL (80.0-94.0); MEAN CORPUSCULAR HEMOGLOBIN 24.2 pg (27.0-31.0); MEAN CORPUSCULAR HGB CONC 32.9 g/dL (33.0-37.0); MEAN PLATELET VOLUME 7.5 fL (7.2-11.7); MONO # 0.7 K/uL (0.0-0.8); MONO % 6.7 % (0.0-10.0); NEUT # 7.1 K/uL (1.8-7.0); NEUT % 68.6 % (50.0-75.0); NRBC % 0.1 % (0.0-2.0); RBC 3.89 Mil/uL (4.40-5.90); RED CELL DISTRIBUTION WIDTH 18.5 % (11.5-14.5); WHITE BLOOD COUNT 10.3 K/uL (4.8-10.8)
[2018-10-16] MEDS: Enoxaparin 40 mg Syringe SC SCH (10:07)
[2018-10-16] MEDS: Lidocaine 5% Patch TD SCH (10:07)
[2018-10-16] MEDS: Aritificial Tears (15ml) OU SCH ×2 (10:08→17:41)
[2018-10-16 10:12] LABS: ALB/GLOB RATIO 0.8 (1.0-2.1); ALBUMIN 2.7 g/dL (3.5-5.0); ALT/SGPT 30 U/L (21-72); AST/SGOT 26 U/L (17-59); BLOOD UREA NITROGEN 6 mg/dL (9-20); CALCIUM 8.2 mg/dl (8.6-10.4); GFR NON-AFRICAN AMERICAN > 60
[2018-10-16] MEDS: Lactobacillus Acidophilus 500 MU Cap PO SCH (14:15)
--- NOTE | 2018-10-16 16:07 | CP.PCM.PN ---
<RuiHemal - Last Filed: 10/16/18 15:58> Subjective - Date & Time of Evaluation Date of Evaluation: 10/16/18 Time of Evaluation: 07:50 - Subjective Subjective: Surgery Progress note. Dr. Lozada Pt seen and examined at bedside. No acute events overnight. Reports flatus in the ostomy, no bowel function. No F/C. No CP/SOB. Abd pain well controlled with the current regimen. No new complaints. Davin with 30cc serosang output noted. Moore with 2750cc output noted. On-Q catheters removed this morning. Objective - Vital Signs/Intake and Output Vital Signs (last 24 hours): Temp Pulse Resp BP Pulse Ox 98.2 F 94 H 20 144/80 96 10/16/18 08:40 10/16/18 13:32 10/16/18 08:40 10/16/18 08:40 10/16/18 08:40 Intake and Output: 10/16/18 10/16/18 06:59 18:59 Intake Total 2160 1340 Output Total 1658 830 Balance 502 510 - Medications Medications: Current Medications Amlodipine Besylate (Norvasc) 5 mg PO DAILY [facility] Last Admin: 10/16/18 10:17 Dose: 5 mg Artificial Tears (Artificial Tears) 1 ml OU BID [facility] Last Admin: 10/16/18 10:08 Dose: 1 drop Enoxaparin Sodium (Lovenox) 40 mg SC DAILY [facility] Last Admin: 10/16/18 10:07 Dose: 40 mg Famotidine (Pepcid) 20 mg IVP Q12 [facility] Last Admin: 10/16/18 10:10 Dose: 20 mg Hydromorphone HCl (Dilaudid) 1 mg IVP Q3H PRN PRN Reason: Pain, severe (8-10) Last Admin: 10/16/18 10:08 Dose: 1 mg Meropenem 1 gm/ Sodium (Chloride) 100 mls @ 100 mls/hr IVPB Q8H [facility]; Protocol Last Admin: 10/16/18 13:28 Dose: 100 mls/hr BUPIVACAINE 0.125%/0.9% NACL (Bupivacaine-Ns 0.125% On-Q Supervisor Doping) 600 mls @ 4 mls/hr IJ ONCE ONE Stop: 10/19/18 15:59 Potassium Chloride/Dextrose/Sod Cl (Potassium Chl 40 Meq In D5-1/2ns) 1,000 mls @ 100 mls/hr IV .Q10H [facility] Last Admin: 10/16/18 06:47 Dose: Not Given Lactobacillus Acidophilus (Lactobacillus) 1 cap PO Q12H [facility] Last Admin: 10/16/18 14:15 Dose: 1 cap Lidocaine (Lidoderm) 1 ea TD DAILY [facility] Last Admin: 10/16/18 10:07 Dose: 1 ea - Labs Labs: 10/16/18 09:06 10/16/18 09:06 PT 15.0 SECONDS (9.7-12.2) H 10/11/18 19:35 INR 1.4 10/11/18 19:35 APTT 26.8 SECONDS (21-34) 10/11/18 19:35 - Constitutional Appears: Well, Non-toxic, No Acute Distress - Head Exam Head Exam: ATRAUMATIC, NORMAL INSPECTION, NORMOCEPHALIC - Eye Exam Eye Exam: EOMI, Normal appearance. absent: Scleral icterus - ENT Exam ENT Exam: Mucous Membranes Moist - Respiratory Exam Respiratory Exam: NORMAL BREATHING PATTERN. absent: Accessory Muscle Use, Respiratory Distress - Cardiovascular Exam Cardiovascular Exam: RRR. absent: JVD - GI/Abdominal Exam GI & Abdominal Exam: Soft. absent: Distended, Firm, Guarding, Rigid, Rebound Additional comments: Mild Vidya-incisional tenderness noted. Ostomy pink and patent. No stool output noted as of yet. Bowel sweat noted. Davin in place with serosang output noted - Extremities Exam Extremities Exam: Normal Inspection. absent: Calf Tenderness - Neurological Exam Neurological Exam: Alert, Awake, Oriented x3 - Psychiatric Exam Psychiatric exam: Normal Affect, Normal Mood - Skin Skin Exam: Dry, Intact, Normal Color, Warm Assessment and Plan - Assessment and Plan (Free Text) Assessment: 68yo M s/p ex lap w Alyse's for nearly obstructing colon mass with colovesicular fistula. POD 5 Plan: - ADAT: FLD - Maintain moore as per Urology - IV Abx as per ID - maintain Davin to self suction - Pain control - monitor for ostomy bowel function - Medical mgmt as per Primary team - Encourage OOBTC and Ambulate Further recs as per Dr. Kierra Fabian PGY2 surgery <Otilio Lozada - Last Filed: 10/16/18 21:05> Objective - Vital Signs/Intake and Output Vital Signs (last 24 hours): Temp Pulse Resp BP Pulse Ox 97.3 F L 90 20 144/87 98 10/16/18 15:00 10/16/18 15:00 10/16/18 15:00 10/16/18 15:00 10/16/18 15:00 Intake and Output: 10/16/18 10/17/18 18:59 06:59 Intake Total 1340 Output Total 830 Balance 510 - Medications Medications: Current Medications Amlodipine Besylate (Norvasc) 5 mg PO DAILY [facility] Last Admin: 10/16/18 10:17 Dose: 5 mg Artificial Tears (Artificial Tears) 1 ml OU BID [facility] Last Admin: 10/16/18 17:41 Dose: 1 drop Enoxaparin Sodium (Lovenox) 40 mg SC DAILY [facility] Last Admin: 10/16/18 10:07 Dose: 40 mg Famotidine (Pepcid) 20 mg IVP Q12 [facility] Last Admin: 10/16/18 10:10 Dose: 20 mg Hydromorphone HCl (Dilaudid) 1 mg IVP Q3H PRN PRN Reason: Pain, severe (8-10) Last Admin: 10/16/18 17:49 Dose: 1 mg Meropenem 1 gm/ Sodium (Chloride) 100 mls @ 100 mls/hr IVPB Q8H [facility]; Protocol Last Admin: 10/16/18 13:28 Dose: 100 mls/hr BUPIVACAINE 0.125%/0.9% NACL (Bupivacaine-Ns 0.125% On-Q Supervisor Doping) 600 mls @ 4 mls/hr IJ ONCE ONE Stop: 10/19/18 15:59 Potassium Chloride/Dextrose/Sod Cl (Potassium Chl 40 Meq In D5-1/2ns) 1,000 mls @ 100 mls/hr IV .Q10H [facility] Last Admin: 10/16/18 19:54 Dose: 100 mls/hr Lactobacillus Acidophilus (Lactobacillus) 1 cap PO Q12H [facility] Last Admin: 10/16/18 14:15 Dose: 1 cap Lidocaine (Lidoderm) 1 ea TD DAILY [facility] Last Admin: 10/16/18 10:07 Dose: 1 ea - Labs Labs: 10/16/18 09:06 10/16/18 09:06 PT 15.0 SECONDS (9.7-12.2) H 10/11/18 19:35 INR 1.4 10/11/18 19:35 APTT 26.8 SECONDS (21-34) 10/11/18 19:35 Attending/Attestation - Attestation I have fully participated in the care of the patient.: Yes I have reviewed all pertinent clinical information, including history, physical exam and plan: Yes Notes (Text): Pt is stable clinically c.w current mx Advance diet as tolerated OOB to walk Plan d.w primary team in detail.
[2018-10-17] MEDS: Potassium Chl 40 mEq in D5-1/2 1,000 ML IV SCH ×3 (02:04→11:52)
[2018-10-17] MEDS: Lactobacillus Acidophilus 500 MU Cap PO SCH ×2 (02:06→13:11)
--- NOTE | 2018-10-17 02:30 | OP ---
PROCEDURE DATE: 10/11/2018 PREOPERATIVE DIAGNOSES: 1. Rectosigmoid mass, possible colon cancer. 2. Colonic obstruction. 3. Abdominal pain and distention. 4. Urinary tract infection. POSTOPERATIVE DIAGNOSES: 1. Large rectosigmoid mass involving the bladder. 2. Abdominal abscess. 3. Extensive peritoneal adhesions. 4. Urinary tract infection. PROCEDURES DONE: 1. Exploratory laparotomy. 2. Extensive enterolysis. 3. Extensive adhesiolysis of the bladder from the tumor invasion 4. Drainage of abdominal abscess. 5. Rectosigmoid resection. 6. End colostomy 7. Omentopexy at Bladder invasion site 8. Bilateral On-Q pain catheter pump placement. 9. Abdominal washout. SURGEON: Otilio Lozada MD ANESTHESIA: General endotracheal tube anesthesia. ESTIMATED BLOOD LOSS: Around 300 mL. DRAINS: A 19-Kiswahili Davin drain was placed around the bladder. COMPLICATIONS: None. PATHOLOGY: 1. The rectosigmoid mass was sent for the pathology. 2. The pus was sent for culture and sensitivity. INTRAOPERATIVE FINDINGS: The patient had a large rectosigmoid mass involving the bladder fundus as well as the base, and the patient had a known visible fistula. Multiple times, the bladder leak tests were done after injecting the bladder with a normal saline as well as with methylene blue, and there was no leak identified from the bladder. The patient also had an abdominal abscess surrounding the bladder that was drained. The size of the tumor was approximately 15 x 20 cm size, and it was attached to the bladder as well as to the retroperitoneum. DESCRIPTION OF THE PROCEDURE: On intraoperative steps, this is a 68-year-old male who was admitted with abdominal pain, distention, UTI as well as rectosigmoid mass. The patient was consented for the exploratory laparotomy and colon resection, possible ostomy, and bilateral ureteral stents were placed early in the morning by Dr. Charles. Sigmoidoscopy as well as the biopsy was done by Dr. Kuhn the day before. The patient was brought to the OR, placed supine on the operating table. After induction of the anesthesia, the patient was placed in the lithotomy position. Now, the vertical lower midline incision was made after entering the peritoneal cavity. The patient was found to have a large mass of the rectosigmoid as well as the bladder attached together. First, enterolysis was done in order to identify the anatomy. Now, the adhesiolysis of the bladder was also done from the tumor, and the leak tests of the bladder were done multiple times with the normal saline as well as with the methylene blue, and there was no leak identified from the bladder. There was a large abscess beneath the bladder and the colonic mass that was drained. Approximately 100 mL of pus was drained, and the pus was sent for culture and sensitivity. Now, the colon was mobilized, and extensive adhesiolysis was done in order to identify the anatomy. Both ureters were identified. First, proximally the descending colon was resected, and now the mesentery was resected in order to enter the pelvis. The rectum was also resected proximally, and mass was sent off the table for the pathology. Now, the descending colon was mobilized to prepare for the colostomy. The abdominal washout was done. A 19-Kiswahili Davin drain was placed, and bilateral On-Q pain catheter pump was placed. The abdominal cavity was closed in two layers. The mass was closed with #1 PDS as well as with the #1 Prolene interrupted multiple sutures. Now, the colostomy site was matured at left flank, and the first fascial suture was placed for the colostomy, and then the colostomy was matured and it was sutured to the subcu. After that, a dry sterile dressing was applied. The patient tolerated the procedure well. Count of the instrument and gauze was correct. There were no apparent complications. The patient was extubated in the OR and sent to the postanesthesia care unit in stable condition. Otilio Lozada MD [facility]
[2018-10-17] MEDS: Meropenem 1 GM in Sodium Chloride 0.9% 100 ML IVPB SCH ×3 (04:25→21:14)
--- NOTE | 2018-10-17 07:08 | CP.PCM.PN ---
<Polo Rosa - Last Filed: 10/17/18 18:00> Subjective - Date & Time of Evaluation Date of Evaluation: 10/17/18 Time of Evaluation: 07:30 - Subjective Subjective: Medicine Progress Note for Hospitalist Service, Dr. Leland Keith Pt seen and examined at bedside this am. Denies any acute complaints, states pain is controlled currently. No acute events reported overnight by staff. Output from Davin drain 30 cc serosanguinous fluid, Watters output 4550 cc. Denies fever, chills, chest pain, sob, n/v/d/c, urinary complaints, or other symptoms. Objective - Vital Signs/Intake and Output Vital Signs (last 24 hours): Temp Pulse Resp BP Pulse Ox 98.8 F 94 H 20 138/87 95 10/16/18 23:30 10/16/18 23:30 10/16/18 23:30 10/16/18 23:30 10/16/18 23:30 Intake and Output: 10/17/18 10/17/18 06:59 18:59 Intake Total 200 Output Total 3758 Balance -3558 - Medications Medications: Current Medications Amlodipine Besylate (Norvasc) 5 mg PO DAILY [facility] Last Admin: 10/16/18 10:17 Dose: 5 mg Artificial Tears (Artificial Tears) 1 ml OU BID [facility] Last Admin: 10/16/18 17:41 Dose: 1 drop Enoxaparin Sodium (Lovenox) 40 mg SC DAILY [facility] Last Admin: 10/16/18 10:07 Dose: 40 mg Famotidine (Pepcid) 20 mg IVP Q12 [facility] Last Admin: 10/16/18 22:02 Dose: 20 mg Hydromorphone HCl (Dilaudid) 1 mg IVP Q3H PRN PRN Reason: Pain, severe (8-10) Last Admin: 10/17/18 04:24 Dose: 1 mg Meropenem 1 gm/ Sodium (Chloride) 100 mls @ 100 mls/hr IVPB Q8H [facility]; Protocol Last Admin: 10/17/18 04:25 Dose: 100 mls/hr BUPIVACAINE 0.125%/0.9% NACL (Bupivacaine-Ns 0.125% On-Q Apprentice Cosmetologist) 600 mls @ 4 mls/hr IJ ONCE ONE Stop: 10/19/18 15:59 Potassium Chloride/Dextrose/Sod Cl (Potassium Chl 40 Meq In D5-1/2ns) 1,000 mls @ 100 mls/hr IV .Q10H [facility] Last Admin: 10/17/18 02:04 Dose: Not Given Lactobacillus Acidophilus (Lactobacillus) 1 cap PO Q12H [facility] Last Admin: 10/17/18 02:06 Dose: 1 cap Lidocaine (Lidoderm) 1 ea TD DAILY [facility] Last Admin: 10/16/18 10:07 Dose: 1 ea - Labs Labs: 10/16/18 09:06 10/16/18 09:06 PT 15.0 SECONDS (9.7-12.2) H 10/11/18 19:35 INR 1.4 10/11/18 19:35 APTT 26.8 SECONDS (21-34) 10/11/18 19:35 - Constitutional Appears: Non-toxic, No Acute Distress - Head Exam Head Exam: ATRAUMATIC, NORMOCEPHALIC - Eye Exam Eye Exam: EOMI, Normal appearance, PERRL - ENT Exam ENT Exam: Mucous Membranes Moist - Cardiovascular Exam Cardiovascular Exam: REGULAR RHYTHM, +S1, +S2. absent: Gallop, Rubs, Murmur - GI/Abdominal Exam GI & Abdominal Exam: Soft, Normal Bowel Sounds. absent: Distended Additional comments: Surgical site at area of midline c/d/i, colostomy bag site c/d/i - Extremities Exam Extremities Exam: Normal Capillary Refill, Normal Inspection. absent: Pedal Edema, Tenderness - Neurological Exam Neurological Exam: Alert, Awake, CN II-XII Intact, Oriented x3 - Skin Skin Exam: Dry, Intact, Warm Assessment and Plan - Assessment and Plan (Free Text) Assessment: 68 yo male with no known PMhx presented to the ED with c/o abdominal pain, diarrhea, urinary frequency and urgency, and foul-smelling urine, was found to have complex sigmoid mass with colovesicular fistula now POD#6 s/p laparotomy with rectosigmoid mass resection with colostomy. Plan: Sigmoid mass with colovesicular fistula, chronic -CT A/P w/IV and PO contrast 10/08: 11 x 8 x 6 mm complex cystic mass in sigmoid colon compatible with malignancy, demonstrating solid and cystic chronic components. Associated invasion of the urinary bladder with suspicion for a colovesicular fistula. 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 Jabari Charles, recs appreciated -U/a positive for UTI, urine cx negative -Testicular U/s done due to pt c/o testicular pain on day of admission, denies pain in area currently -Testicular U/s: Mild heterogeneity to the L testicular echotexture without any definitive focal mass identified. This echotexture and depicted images with flow show the L testicule having less anterior 1/2 vascular flow compared to the R testicle per sagittal images. The close clinical significance of this appearance, if any - is unclear. L epididymal head cysts. Leukocytosis, resolved -Blood cultures NG x 3 days -Urine cultures no growth -Stool studies (stool leukocytes, fecal occult, cultures) negative -Procal neg -Abdominal fluid cultres growing klebsiella -Merrem as per ID recs Iron deficiency anemia, Elevated INR, chronic -Pepcid 20 mg IVP bid -Was transfused 2 FFP and 1 unit PRBC for procedure -Dr. Lizarraga consulted, Heme/Onc; recommends transfuse prn, would benefit from IV Venofer 200 mg IVPB x 3 doses -IV Ferrlecit x 3 doses Hypokalemia, acute -Resolved this am, monitor and replete prn Pulmonary nodule, chronic -CXR 10/09: No acute findings identified. 6 mm probable calcified nodule, left mid lung zone. 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 However pt currently uninsured, will need PT clearance prior to d/c. Dispo: Palliative consulted, follow-up recs. Also follow-up social work regarding patient's eligibility for Medicaid. Plan for cystoscopy and stent removal with Dr. Charles, will f/u with Urology today when procedure will occur. F/u surgical pathology results from removal of sigmoid mass. Pt seen, examined with, and plan discussed with Dr. Leland Keith, attending physician. Polo Rosa, DO PGY-1, Kinesiology Internship Pager #[phone] <SagarLeland Barton - Last Filed: 10/17/18 19:05> Objective - Vital Signs/Intake and Output Vital Signs (last 24 hours): Temp Pulse Resp BP Pulse Ox 98 F 90 20 140/80 100 10/17/18 15:00 10/17/18 15:00 10/17/18 15:00 10/17/18 15:00 10/17/18 15:00 Intake and Output: 10/17/18 10/17/18 06:59 18:59 Intake Total 200 Output Total 8121 500 Balance -6920 -500 - Medications Medications: Current Medications Amlodipine Besylate (Norvasc) 5 mg PO DAILY [facility] Last Admin: 10/17/18 09:06 Dose: 5 mg Artificial Tears (Artificial Tears) 1 ml OU BID [facility] Last Admin: 10/17/18 18:31 Dose: 1 drop Enoxaparin Sodium (Lovenox) 40 mg SC DAILY [facility] Last Admin: 10/17/18 09:05 Dose: 40 mg Famotidine (Pepcid) 20 mg IVP Q12 [facility] Last Admin: 10/17/18 09:06 Dose: 20 mg Hydromorphone HCl (Dilaudid) 1 mg IVP Q3H PRN PRN Reason: Pain, severe (8-10) Last Admin: 10/17/18 12:23 Dose: 1 mg Meropenem 1 gm/ Sodium (Chloride) 100 mls @ 100 mls/hr IVPB Q8H [facility]; Protocol Last Admin: 10/17/18 13:11 Dose: 100 mls/hr BUPIVACAINE 0.125%/0.9% NACL (Bupivacaine-Ns 0.125% On-Q Apprentice Cosmetologist) 600 mls @ 4 mls/hr IJ ONCE ONE Stop: 10/19/18 15:59 Lactobacillus Acidophilus (Lactobacillus) 1 cap PO Q12H [facility] Last Admin: 10/17/18 13:11 Dose: 1 cap Lidocaine (Lidoderm) 1 ea TD DAILY [facility] Last Admin: 10/17/18 09:04 Dose: 1 ea - Labs Labs: 10/17/18 07:09 10/17/18 07:09 PT 15.0 SECONDS (9.7-12.2) H 10/11/18 19:35 INR 1.4 10/11/18 19:35 APTT 26.8 SECONDS (21-34) 10/11/18 19:35 Attending/Attestation - Attestation I have personally seen and examined this patient.: Yes I have fully participated in the care of the patient.: Yes I have reviewed all pertinent clinical information, including history, physical exam and plan: Yes Notes (Text): 10/17/18 18:56 Patient was seen and examined at 4:15 PM Care of this patient was gone over in detail with resident Dr. Rosa Spoke with Gasser Machine Operator Zaynab: 1). Patient has already applied for [facility] 2). Zaynab will check to see if patient is Medicaid eligible 3). 30 day supply of Colostomy Bags provided by Wound Care Nurse Patrick Ren 4). Zaynab is arranging for [employer] to provide 3 month supply of the Colostomy Bags F/U Surgical Pathology from 10/11/18 and once obtained then contact Heme/Onc to determine best course of treatment. F/U with Urology Dr. Jabari Charles as to when he will perform Cytoscopy for Ureteral Stent removal. Plan of care gone over with the patient and he expressed understanding. Leland Keith D.O.
--- NOTE | 2018-10-17 07:10 | CP.PCM.PN ---
<Yehuda Cha - Last Filed: 10/17/18 09:29> Subjective - Date & Time of Evaluation Date of Evaluation: 10/17/18 Time of Evaluation: 07:10 - Subjective Subjective: General Surgery Progress Note for Dr. Lozada Patient seen and examined at bedside. No acute events overnight. Denies pain. Patient admits to tolerating diet but states he has less intake than before. Davin with 38cc serosang output noted. Moore with 4550cc output noted. Admits flatus and small amout of liquid output from ostomy. No other complaints Objective - Vital Signs/Intake and Output Vital Signs (last 24 hours): Temp Pulse Resp BP Pulse Ox 98.8 F 94 H 20 138/87 95 10/16/18 23:30 10/16/18 23:30 10/16/18 23:30 10/16/18 23:30 10/16/18 23:30 Intake and Output: 10/17/18 10/17/18 06:59 18:59 Intake Total 200 Output Total 3758 Balance -3558 - Medications Medications: Current Medications Amlodipine Besylate (Norvasc) 5 mg PO DAILY [facility] Last Admin: 10/16/18 10:17 Dose: 5 mg Artificial Tears (Artificial Tears) 1 ml OU BID [facility] Last Admin: 10/16/18 17:41 Dose: 1 drop Enoxaparin Sodium (Lovenox) 40 mg SC DAILY [facility] Last Admin: 10/16/18 10:07 Dose: 40 mg Famotidine (Pepcid) 20 mg IVP Q12 [facility] Last Admin: 10/16/18 22:02 Dose: 20 mg Hydromorphone HCl (Dilaudid) 1 mg IVP Q3H PRN PRN Reason: Pain, severe (8-10) Last Admin: 10/17/18 04:24 Dose: 1 mg Meropenem 1 gm/ Sodium (Chloride) 100 mls @ 100 mls/hr IVPB Q8H [facility]; Protocol Last Admin: 10/17/18 04:25 Dose: 100 mls/hr BUPIVACAINE 0.125%/0.9% NACL (Bupivacaine-Ns 0.125% On-Q Machine Stone Polisher Apprentice) 600 mls @ 4 mls/hr IJ ONCE ONE Stop: 10/19/18 15:59 Potassium Chloride/Dextrose/Sod Cl (Potassium Chl 40 Meq In D5-1/2ns) 1,000 mls @ 100 mls/hr IV .Q10H [facility] Last Admin: 10/17/18 02:04 Dose: Not Given Lactobacillus Acidophilus (Lactobacillus) 1 cap PO Q12H [facility] Last Admin: 10/17/18 02:06 Dose: 1 cap Lidocaine (Lidoderm) 1 ea TD DAILY [facility] Last Admin: 10/16/18 10:07 Dose: 1 ea - Labs Labs: 10/16/18 09:06 10/16/18 09:06 PT 15.0 SECONDS (9.7-12.2) H 10/11/18 19:35 INR 1.4 10/11/18 19:35 APTT 26.8 SECONDS (21-34) 10/11/18 19:35 - Additional Findings Additional findings: - Constitutional Appears: Well, Non-toxic, No Acute Distress - Head Exam Head Exam: ATRAUMATIC, NORMAL INSPECTION, NORMOCEPHALIC - Eye Exam Eye Exam: EOMI, Normal appearance. absent: Scleral icterus - ENT Exam ENT Exam: Mucous Membranes Moist - Respiratory Exam Respiratory Exam: NORMAL BREATHING PATTERN. absent: Accessory Muscle Use, Respiratory Distress - Cardiovascular Exam Cardiovascular Exam: RRR. absent: JVD - GI/Abdominal Exam GI & Abdominal Exam: Soft. absent: Distended, Firm, Guarding, Rigid, Rebound Additional comments: Mild Vidya-incisional tenderness noted. Ostomy pink and patent. No stool output noted as of yet. Bowel sweat noted. Davin in place with serosang output noted - Extremities Exam Extremities Exam: Normal Inspection. absent: Calf Tenderness - Neurological Exam Neurological Exam: Alert, Awake, Oriented x3 - Psychiatric Exam Psychiatric exam: Normal Affect, Normal Mood - Skin Skin Exam: Dry, Intact, Normal Color, Warm Assessment and Plan - Assessment and Plan (Free Text) Assessment: 68 M s/p ex lap and Alyse's procedure for nearly obstructing colon mass with colovesicular fistula POD#6 Plan: - FLD, ADAT - Keep moore as per Urology - IV Abx - Davin to self suction - Pain control - monitor for ostomy bowel function - Medical management as per Primary team - Encourage OOB/Ambulation/IS - Further recs as per Dr. Kierra Cha PGY2 <Otilio Lozada - Last Filed: 10/21/18 20:25> Objective - Vital Signs/Intake and Output Vital Signs (last 24 hours): Temp Pulse Resp BP Pulse Ox 98.2 F 100 H 20 125/82 100 10/20/18 15:00 10/20/18 15:00 10/20/18 15:00 10/20/18 15:00 10/20/18 15:00 - Labs Labs: 10/20/18 06:31 10/20/18 06:31 PT 15.0 SECONDS (9.7-12.2) H 10/11/18 19:35 INR 1.4 10/11/18 19:35 APTT 26.8 SECONDS (21-34) 10/11/18 19:35 Attending/Attestation - Attestation I have personally seen and examined this patient.: Yes I have fully participated in the care of the patient.: Yes I have reviewed all pertinent clinical information, including history, physical exam and plan: Yes Notes (Text): Pt was seen and examine at bedside Agree with above note and assessment Pt is improving clinically DC plan Advance diet as tolerated Keep Drain c.w current mx Plan d.w primary team in detail.
[2018-10-17 07:25] LABS: BASO # 0.1 K/uL (0.0-0.2); BASO % 0.7 % (0.0-2.0); EOS # 0.4 K/uL (0.0-0.7); EOS % 4.4 % (0.0-4.0); HEMOGLOBIN 9.3 g/dL (12.0-18.0); LYMPH # 2.6 K/uL (1.0-4.3); MEAN CELL VOLUME 74.1 fL (80.0-94.0); MEAN CORPUSCULAR HEMOGLOBIN 24.8 pg (27.0-31.0); MEAN CORPUSCULAR HGB CONC 33.5 g/dL (33.0-37.0); MEAN PLATELET VOLUME 7.8 fL (7.2-11.7); MONO # 0.8 K/uL (0.0-0.8); NEUT # 5.8 K/uL (1.8-7.0); NEUT % 59.9 % (50.0-75.0); NRBC % 0.1 % (0.0-2.0); RBC 3.73 Mil/uL (4.40-5.90); RED CELL DISTRIBUTION WIDTH 18.9 % (11.5-14.5); WHITE BLOOD COUNT 9.7 K/uL (4.8-10.8)
[2018-10-17 07:45] LABS: ALB/GLOB RATIO 0.9 (1.0-2.1); ALBUMIN 2.8 g/dL (3.5-5.0); ALT/SGPT 48 U/L (21-72); AST/SGOT 62 U/L (17-59); BLOOD UREA NITROGEN 7 mg/dL (9-20); CALCIUM 8.3 mg/dl (8.6-10.4); GFR NON-AFRICAN AMERICAN > 60
[2018-10-17] MEDS: Lidocaine 5% Patch TD SCH (09:04)
[2018-10-17] MEDS: Enoxaparin 40 mg Syringe SC SCH (09:05)
[2018-10-17] MEDS: Aritificial Tears (15ml) OU SCH ×2 (10:01→18:31)
--- NOTE | 2018-10-17 12:17 | CP.PCM.PN ---
Subjective - Date & Time of Evaluation Date of Evaluation: 10/17/18 Time of Evaluation: 08:00 - Subjective Subjective: denies fever or abdominal pain Objective - Vital Signs/Intake and Output Vital Signs (last 24 hours): Temp Pulse Resp BP Pulse Ox 98.0 F 86 20 147/87 98 10/17/18 08:29 10/17/18 08:29 10/17/18 08:29 10/17/18 08:29 10/17/18 08:29 Intake and Output: 10/17/18 10/17/18 06:59 18:59 Intake Total 200 Output Total 3758 Balance -3558 - Medications Medications: Current Medications Amlodipine Besylate (Norvasc) 5 mg PO DAILY [facility] Last Admin: 10/17/18 09:06 Dose: 5 mg Artificial Tears (Artificial Tears) 1 ml OU BID [facility] Last Admin: 10/17/18 10:01 Dose: 2 drop Enoxaparin Sodium (Lovenox) 40 mg SC DAILY [facility] Last Admin: 10/17/18 09:05 Dose: 40 mg Famotidine (Pepcid) 20 mg IVP Q12 [facility] Last Admin: 10/17/18 09:06 Dose: 20 mg Hydromorphone HCl (Dilaudid) 1 mg IVP Q3H PRN PRN Reason: Pain, severe (8-10) Last Admin: 10/17/18 09:05 Dose: 1 mg Meropenem 1 gm/ Sodium (Chloride) 100 mls @ 100 mls/hr IVPB Q8H [facility]; Protocol Last Admin: 10/17/18 04:25 Dose: 100 mls/hr BUPIVACAINE 0.125%/0.9% NACL (Bupivacaine-Ns 0.125% On-Q Dairy Manager) 600 mls @ 4 mls/hr IJ ONCE ONE Stop: 10/19/18 15:59 Potassium Chloride/Dextrose/Sod Cl (Potassium Chl 40 Meq In D5-1/2ns) 1,000 mls @ 100 mls/hr IV .Q10H [facility] Last Admin: 10/17/18 11:52 Dose: Not Given Lactobacillus Acidophilus (Lactobacillus) 1 cap PO Q12H [facility] Last Admin: 10/17/18 02:06 Dose: 1 cap Lidocaine (Lidoderm) 1 ea TD DAILY [facility] Last Admin: 10/17/18 09:04 Dose: 1 ea - Labs Labs: 10/17/18 07:09 10/17/18 07:09 PT 15.0 SECONDS (9.7-12.2) H 10/11/18 19:35 INR 1.4 10/11/18 19:35 APTT 26.8 SECONDS (21-34) 10/11/18 19:35 - Constitutional Appears: Non-toxic, No Acute Distress, Chronically Ill - Head Exam Head Exam: ATRAUMATIC, NORMAL INSPECTION, NORMOCEPHALIC - Eye Exam Eye Exam: EOMI, Normal appearance, PERRL Pupil Exam: NORMAL ACCOMODATION, PERRL - ENT Exam ENT Exam: Mucous Membranes Moist, Normal Exam - Neck Exam Neck Exam: Full ROM, Normal Inspection. absent: Lymphadenopathy - Respiratory Exam Respiratory Exam: Clear to Ausculation Bilateral, NORMAL BREATHING PATTERN - Cardiovascular Exam Cardiovascular Exam: REGULAR RHYTHM, +S1, +S2. absent: Murmur - GI/Abdominal Exam GI & Abdominal Exam: Soft, Diminished Bowel Sounds. absent: Tenderness Additional comments: wounds / colostomy healing - Rectal Exam Rectal Exam: Deferred - Exam Exam: NORMAL INSPECTION - Extremities Exam Extremities Exam: Full ROM, Normal Capillary Refill, Normal Inspection. absent: Joint Swelling, Pedal Edema - Back Exam Back Exam: NORMAL INSPECTION - Neurological Exam Neurological Exam: Alert, Awake, CN II-XII Intact, Normal Gait, Oriented x3 - Psychiatric Exam Psychiatric exam: Normal Affect, Normal Mood - Skin Skin Exam: Dry, Intact, Normal Color, Warm Assessment and Plan (1) Adenocarcinoma carcinomatosis Status: Acute (2) UTI (urinary tract infection) Status: Acute (3) Colostomy in place Status: Acute (4) Peritonitis Status: Acute - Assessment and Plan (Free Text) Assessment: improving 'IV rx renewed prognosis guarded
[2018-10-18] MEDS: Lactobacillus Acidophilus 500 MU Cap PO SCH ×2 (00:42→13:05)
[2018-10-18] MEDS: Meropenem 1 GM in Sodium Chloride 0.9% 100 ML IVPB SCH ×3 (04:12→21:30)
--- NOTE | 2018-10-18 07:00 | CP.PCM.PN ---
<Polo Rosa - Last Filed: 10/18/18 17:23> Subjective - Date & Time of Evaluation Date of Evaluation: 10/18/18 Time of Evaluation: 08:00 - Subjective Subjective: Medicine Progress Note for Hospitalist Service, Dr. Leland Keith Pt seen and examined at bedside this am. Denies any acute complaints, reports pain well controlled. States he feels tired this am. No acute events reported overnight by staff. 12-point ROS obtained, otherwise neg as per pt. Objective - Vital Signs/Intake and Output Vital Signs (last 24 hours): Temp Pulse Resp BP Pulse Ox 98.1 F 97 H 20 134/74 95 10/17/18 23:36 10/17/18 23:36 10/17/18 23:36 10/17/18 23:36 10/17/18 23:40 Intake and Output: 10/18/18 10/18/18 06:59 18:59 Intake Total 360 Output Total 2515 Balance -2155 - Medications Medications: Current Medications Amlodipine Besylate (Norvasc) 5 mg PO DAILY [facility] Last Admin: 10/17/18 09:06 Dose: 5 mg Artificial Tears (Artificial Tears) 1 ml OU BID [facility] Last Admin: 10/17/18 18:31 Dose: 1 drop Enoxaparin Sodium (Lovenox) 40 mg SC DAILY [facility] Last Admin: 10/17/18 09:05 Dose: 40 mg Famotidine (Pepcid) 20 mg IVP Q12 [facility] Last Admin: 10/17/18 21:14 Dose: 20 mg Hydromorphone HCl (Dilaudid) 1 mg IVP Q3H PRN PRN Reason: Pain, severe (8-10) Last Admin: 10/17/18 21:15 Dose: 1 mg Meropenem 1 gm/ Sodium (Chloride) 100 mls @ 100 mls/hr IVPB Q8H [facility]; Protocol Last Admin: 10/18/18 04:12 Dose: 100 mls/hr BUPIVACAINE 0.125%/0.9% NACL (Bupivacaine-Ns 0.125% On-Q Spray Machine Loader) 600 mls @ 4 mls/hr IJ ONCE ONE Stop: 10/19/18 15:59 Lactobacillus Acidophilus (Lactobacillus) 1 cap PO Q12H [facility] Last Admin: 10/18/18 00:42 Dose: 1 cap Lidocaine (Lidoderm) 1 ea TD DAILY [facility] Last Admin: 10/17/18 09:04 Dose: 1 ea - Labs Labs: 10/17/18 07:09 10/17/18 07:09 PT 15.0 SECONDS (9.7-12.2) H 10/11/18 19:35 INR 1.4 10/11/18 19:35 APTT 26.8 SECONDS (21-34) 10/11/18 19:35 - Constitutional Appears: Non-toxic, No Acute Distress - Head Exam Head Exam: ATRAUMATIC, NORMOCEPHALIC - Eye Exam Eye Exam: EOMI, Normal appearance, PERRL - ENT Exam ENT Exam: Mucous Membranes Moist - Respiratory Exam Respiratory Exam: Clear to Ausculation Bilateral, NORMAL BREATHING PATTERN. absent: Rales, Rhonchi, Wheezes - Cardiovascular Exam Cardiovascular Exam: REGULAR RHYTHM, +S1, +S2. absent: Gallop, Rubs, Murmur - GI/Abdominal Exam GI & Abdominal Exam: Soft, Normal Bowel Sounds Additional comments: Tenderness to palpation at surgical site, Davin drain not demonstrating fluid, ostomy site c/d/i - Extremities Exam Extremities Exam: Full ROM, Normal Capillary Refill, Normal Inspection. absent: Pedal Edema, Tenderness - Neurological Exam Neurological Exam: Alert, Awake, CN II-XII Intact, Oriented x3 - Skin Skin Exam: Dry, Intact, Normal Color, Warm Assessment and Plan - Assessment and Plan (Free Text) Assessment: 68 yo male with no known PMhx presented to the ED with c/o abdominal pain, diarrhea, urinary frequency and urgency, and foul-smelling urine, was found to have complex sigmoid mass with colovesicular fistula now POD#7 s/p laparotomy with rectosigmoid mass resection with colostomy. Plan: Sigmoid mass with colovesicular fistula, chronic -CT A/P w/IV and PO contrast 10/08: 11 x 8 x 6 mm complex cystic mass in sigmoid colon compatible with malignancy, demonstrating solid and cystic chronic components. Associated invasion of the urinary bladder with suspicion for a colovesicular fistula. 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 Dysuria, hematuria 2/2 fistula, acute -Urology consulted, Dr. Jabari Charles, recs appreciated -U/a positive for UTI, urine cx negative -Testicular U/s done due to pt c/o testicular pain on day of admission, denies pain in area currently -Testicular U/s: Mild heterogeneity to the L testicular echotexture without any definitive focal mass identified. This echotexture and depicted images with flow show the L testicule having less anterior 1/2 vascular flow compared to the R testicle per sagittal images. The close clinical significance of this appearance, if any - is unclear. L epididymal head cysts. -NPO after midnight tomorrow for OR with Dr. Charles for cystoscopy and removal of stents placed 10/11/18 Leukocytosis, resolved -Blood cultures NG x 5 days -Urine cultures no growth -Stool studies (stool leukocytes, fecal occult, cultures) negative -Procal neg -Abdominal fluid cultres growing klebsiella -Merrem as per ID recs Iron deficiency anemia, Elevated INR, chronic -Pepcid 20 mg IVP bid -Was transfused 2 FFP and 1 unit PRBC for procedure -Dr. Lizarraga consulted, Heme/Onc; recommends transfuse prn, would benefit from IV Venofer 200 mg IVPB x 3 doses -IV Ferrlecit x 3 doses Hypokalemia, acute -Resolved this am, monitor and replete prn Pulmonary nodule, chronic -CXR 10/09: No acute findings identified. 6 mm probable calcified nodule, left mid lung zone. 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 However pt currently uninsured, does not quality for Medicaid, will need PT clearance prior to d/c. Pt to apply for [facility]. Dispo: Palliative consulted, follow-up recs. NPO for OR tomorrow with Dr. Charles for removal of stents and cystoscopy. F/u Heme/Onc recs. Pt seen, examined with, and plan discussed with Dr. Leland Keith, attending physician. Polo Rosa DO PGY-1, Data Warehouse Consultant Pager #[phone] <Leland Keith J - Last Filed: 10/18/18 18:37> Objective - Vital Signs/Intake and Output Vital Signs (last 24 hours): Temp Pulse Resp BP Pulse Ox 98.4 F 110 H 20 123/77 99 10/18/18 16:00 10/18/18 16:00 10/18/18 16:00 10/18/18 16:00 10/18/18 16:00 Intake and Output: 10/18/18 10/18/18 06:59 18:59 Intake Total 360 400 Output Total 2515 1400 Balance -2155 -1000 - Medications Medications: Current Medications Amlodipine Besylate (Norvasc) 5 mg PO DAILY [facility] Last Admin: 10/18/18 09:16 Dose: 5 mg Artificial Tears (Artificial Tears) 1 ml OU BID [facility] Last Admin: 10/18/18 17:51 Dose: 1 drop Famotidine (Pepcid) 20 mg IVP Q12 [facility] Last Admin: 10/18/18 09:16 Dose: 20 mg Hydromorphone HCl (Dilaudid) 1 mg IVP Q3H PRN PRN Reason: Pain, severe (8-10) Last Admin: 10/18/18 15:37 Dose: 1 mg Hydroxyzine HCl (Atarax) 25 mg PO ONCE ONE Stop: 10/18/18 22:01 Meropenem 1 gm/ Sodium (Chloride) 100 mls @ 100 mls/hr IVPB Q8H [facility]; Protocol Last Admin: 10/18/18 12:10 Dose: 100 mls/hr BUPIVACAINE 0.125%/0.9% NACL (Bupivacaine-Ns 0.125% On-Q Spray Machine Loader) 600 mls @ 4 mls/hr IJ ONCE ONE Stop: 10/19/18 15:59 Lactobacillus Acidophilus (Lactobacillus) 1 cap PO Q12H [facility] Last Admin: 10/18/18 13:05 Dose: 1 cap Lidocaine (Lidoderm) 1 ea TD DAILY [facility] Last Admin: 10/18/18 09:16 Dose: 1 ea - Labs Labs: 10/18/18 07:17 10/18/18 07:17 PT 15.0 SECONDS (9.7-12.2) H 10/11/18 19:35 INR 1.4 10/11/18 19:35 APTT 26.8 SECONDS (21-34) 10/11/18 19:35 Attending/Attestation - Attestation I have personally seen and examined this patient.: Yes I have fully participated in the care of the patient.: Yes I have reviewed all pertinent clinical information, including history, physical exam and plan: Yes Notes (Text): 10/18/18 18:37 Care of this patient was gone over in detail with resident Dr. Rosa. Leland Keith D.O.
[2018-10-18 07:24] LABS: BASO # 0.1 K/uL (0.0-0.2); BASO % 1.4 % (0.0-2.0); EOS # 0.3 K/uL (0.0-0.7); EOS % 3.2 % (0.0-4.0); HEMOGLOBIN 9.8 g/dL (12.0-18.0); LYMPH # 2.2 K/uL (1.0-4.3); LYMPH % 25.8 % (20.0-40.0); MEAN CORPUSCULAR HEMOGLOBIN 24.6 pg (27.0-31.0); MEAN CORPUSCULAR HGB CONC 33.2 g/dL (33.0-37.0); MEAN PLATELET VOLUME 7.5 fL (7.2-11.7); MONO # 0.7 K/uL (0.0-0.8); MONO % 7.7 % (0.0-10.0); NEUT # 5.4 K/uL (1.8-7.0); NEUT % 61.9 % (50.0-75.0); RBC 4.01 Mil/uL (4.40-5.90); RED CELL DISTRIBUTION WIDTH 19.1 % (11.5-14.5); WHITE BLOOD COUNT 8.6 K/uL (4.8-10.8)
[2018-10-18 07:47] LABS: ALB/GLOB RATIO 0.9 (1.0-2.1); ALT/SGPT 70 U/L (21-72); AST/SGOT 77 U/L (17-59); BLOOD UREA NITROGEN 9 mg/dL (9-20); CALCIUM 8.6 mg/dl (8.6-10.4); GFR NON-AFRICAN AMERICAN > 60
[2018-10-18] MEDS: Enoxaparin 40 mg Syringe SC SCH (09:16)
[2018-10-18] MEDS: Lidocaine 5% Patch TD SCH (09:16)
[2018-10-18] MEDS: Aritificial Tears (15ml) OU SCH ×2 (09:17→17:51)
--- NOTE | 2018-10-18 09:18 | CP.PCM.PCO ---
Physician Communication Note - Physician Communication Note Physician Communication Note: Please see above
--- NOTE | 2018-10-18 12:51 | CP.PCM.PN ---
<RuiHemal kovacs - Last Filed: 10/18/18 12:47> Subjective - Date & Time of Evaluation Date of Evaluation: 10/18/18 Time of Evaluation: 09:30 - Subjective Subjective: Surgery Progress note. Dr. Lozada Pt seen and examined at bedside. No acute events overnight. Denies any fevers or chills. No N/V. Ostomy with flatus but no stool output yet. Abd pain well controlled. Objective - Vital Signs/Intake and Output Vital Signs (last 24 hours): Temp Pulse Resp BP Pulse Ox 98.2 F 93 H 20 153/84 H 94 L 10/18/18 08:23 10/18/18 08:23 10/18/18 08:23 10/18/18 08:23 10/18/18 08:23 Intake and Output: 10/18/18 10/18/18 06:59 18:59 Intake Total 360 Output Total 2515 Balance -2155 - Medications Medications: Current Medications Amlodipine Besylate (Norvasc) 5 mg PO DAILY [facility] Last Admin: 10/18/18 09:16 Dose: 5 mg Artificial Tears (Artificial Tears) 1 ml OU BID [facility] Last Admin: 10/18/18 09:17 Dose: 2 drop Enoxaparin Sodium (Lovenox) 40 mg SC DAILY [facility] Last Admin: 10/18/18 09:16 Dose: 40 mg Famotidine (Pepcid) 20 mg IVP Q12 [facility] Last Admin: 10/18/18 09:16 Dose: 20 mg Hydromorphone HCl (Dilaudid) 1 mg IVP Q3H PRN PRN Reason: Pain, severe (8-10) Last Admin: 10/18/18 08:20 Dose: 1 mg Hydroxyzine HCl (Atarax) 25 mg PO ONCE ONE Stop: 10/18/18 22:01 Meropenem 1 gm/ Sodium (Chloride) 100 mls @ 100 mls/hr IVPB Q8H [facility]; Protocol Last Admin: 10/18/18 12:10 Dose: 100 mls/hr BUPIVACAINE 0.125%/0.9% NACL (Bupivacaine-Ns 0.125% On-Q Decorator Mannequin) 600 mls @ 4 mls/hr IJ ONCE ONE Stop: 10/19/18 15:59 Lactobacillus Acidophilus (Lactobacillus) 1 cap PO Q12H [facility] Last Admin: 10/18/18 00:42 Dose: 1 cap Lidocaine (Lidoderm) 1 ea TD DAILY [facility] Last Admin: 10/18/18 09:16 Dose: 1 ea - Labs Labs: 10/18/18 07:17 10/18/18 07:17 PT 15.0 SECONDS (9.7-12.2) H 10/11/18 19:35 INR 1.4 10/11/18 19:35 APTT 26.8 SECONDS (21-34) 10/11/18 19:35 - Constitutional Appears: Well, Non-toxic, No Acute Distress - Head Exam Head Exam: ATRAUMATIC, NORMAL INSPECTION, NORMOCEPHALIC - Eye Exam Eye Exam: EOMI, Normal appearance. absent: Scleral icterus - ENT Exam ENT Exam: Mucous Membranes Moist - Respiratory Exam Respiratory Exam: NORMAL BREATHING PATTERN. absent: Accessory Muscle Use, Respiratory Distress - GI/Abdominal Exam GI & Abdominal Exam: Soft. absent: Distended, Firm, Guarding, Rigid, Rebound Additional comments: Incision clean and intact with kirk. Ostomy pink and productive of flatus - Extremities Exam Extremities Exam: Normal Inspection. 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 Kierra Fabian PGY2 surgery <Otilio Lozada - Last Filed: 10/21/18 20:26> Objective - Vital Signs/Intake and Output Vital Signs (last 24 hours): Temp Pulse Resp BP Pulse Ox 98.2 F 100 H 20 125/82 100 10/20/18 15:00 10/20/18 15:00 10/20/18 15:00 10/20/18 15:00 10/20/18 15:00 - Labs Labs: 10/20/18 06:31 10/20/18 06:31 PT 15.0 SECONDS (9.7-12.2) H 10/11/18 19:35 INR 1.4 10/11/18 19:35 APTT 26.8 SECONDS (21-34) 10/11/18 19:35 Attending/Attestation - Attestation I have personally seen and examined this patient.: Yes I have fully participated in the care of the patient.: Yes I have reviewed all pertinent clinical information, including history, physical exam and plan: Yes Notes (Text): Pt was seen and examine at bedside Agree with above note and assessment Pt is improved clinically Tolerating diet PO colace DC plan Wound care consult c.w current mx Plan d.w primary team in detail.
--- NOTE | 2018-10-18 17:16 | CP.PCM.PN ---
Subjective - Date & Time of Evaluation Date of Evaluation: 10/18/18 Time of Evaluation: 10:00 - Subjective Subjective: improving on IV rx Objective - Vital Signs/Intake and Output Vital Signs (last 24 hours): Temp Pulse Resp BP Pulse Ox 98.4 F 110 H 20 123/77 99 10/18/18 16:00 10/18/18 16:00 10/18/18 16:00 10/18/18 16:00 10/18/18 16:00 Intake and Output: 10/18/18 10/18/18 06:59 18:59 Intake Total 360 400 Output Total 2515 1400 Balance -2155 -1000 - Medications Medications: Current Medications Amlodipine Besylate (Norvasc) 5 mg PO DAILY [facility] Last Admin: 10/18/18 09:16 Dose: 5 mg Artificial Tears (Artificial Tears) 1 ml OU BID [facility] Last Admin: 10/18/18 09:17 Dose: 2 drop Famotidine (Pepcid) 20 mg IVP Q12 [facility] Last Admin: 10/18/18 09:16 Dose: 20 mg Hydromorphone HCl (Dilaudid) 1 mg IVP Q3H PRN PRN Reason: Pain, severe (8-10) Last Admin: 10/18/18 15:37 Dose: 1 mg Hydroxyzine HCl (Atarax) 25 mg PO ONCE ONE Stop: 10/18/18 22:01 Meropenem 1 gm/ Sodium (Chloride) 100 mls @ 100 mls/hr IVPB Q8H [facility]; Protocol Last Admin: 10/18/18 12:10 Dose: 100 mls/hr BUPIVACAINE 0.125%/0.9% NACL (Bupivacaine-Ns 0.125% On-Q At Risk Paraprofessional) 600 mls @ 4 mls/hr IJ ONCE ONE Stop: 10/19/18 15:59 Lactobacillus Acidophilus (Lactobacillus) 1 cap PO Q12H [facility] Last Admin: 10/18/18 13:05 Dose: 1 cap Lidocaine (Lidoderm) 1 ea TD DAILY [facility] Last Admin: 10/18/18 09:16 Dose: 1 ea - Labs Labs: 10/18/18 07:17 10/18/18 07:17 PT 15.0 SECONDS (9.7-12.2) H 10/11/18 19:35 INR 1.4 10/11/18 19:35 APTT 26.8 SECONDS (21-34) 10/11/18 19:35 - Constitutional Appears: Non-toxic, Cachectic, Chronically Ill - Head Exam Head Exam: ATRAUMATIC, NORMAL INSPECTION, NORMOCEPHALIC - Eye Exam Eye Exam: EOMI, Normal appearance, PERRL Pupil Exam: NORMAL ACCOMODATION, PERRL - ENT Exam ENT Exam: Mucous Membranes Moist, Normal Exam - Neck Exam Neck Exam: Full ROM, Normal Inspection. absent: Lymphadenopathy - Respiratory Exam Respiratory Exam: Clear to Ausculation Bilateral, NORMAL BREATHING PATTERN - Cardiovascular Exam Cardiovascular Exam: REGULAR RHYTHM, +S1, +S2. absent: Murmur - GI/Abdominal Exam GI & Abdominal Exam: Guarding, Soft, Diminished Bowel Sounds. absent: Tenderness Additional comments: LLQ colostomy midline wound - Rectal Exam Rectal Exam: Deferred - Exam Exam: NORMAL INSPECTION - Extremities Exam Extremities Exam: Full ROM, Normal Capillary Refill, Normal Inspection. 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
[2018-10-19] MEDS: Lactobacillus Acidophilus 500 MU Cap PO SCH ×2 (01:48→12:30)
[2018-10-19] MEDS: Meropenem 1 GM in Sodium Chloride 0.9% 100 ML IVPB SCH ×3 (05:52→20:12)
[2018-10-19 07:27] LABS: BASO # 0.1 K/uL (0.0-0.2); BASO % 1.5 % (0.0-2.0); EOS # 0.3 K/uL (0.0-0.7); EOS % 4.2 % (0.0-4.0); HEMOGLOBIN 9.8 g/dL (12.0-18.0); LYMPH # 1.9 K/uL (1.0-4.3); LYMPH % 24.9 % (20.0-40.0); MEAN CELL VOLUME 74.4 fL (80.0-94.0); MEAN CORPUSCULAR HEMOGLOBIN 23.9 pg (27.0-31.0); MEAN CORPUSCULAR HGB CONC 32.2 g/dL (33.0-37.0); MEAN PLATELET VOLUME 7.9 fL (7.2-11.7); MONO # 0.8 K/uL (0.0-0.8); MONO % 10.1 % (0.0-10.0); NEUT # 4.5 K/uL (1.8-7.0); NEUT % 59.3 % (50.0-75.0); NRBC % 0.1 % (0.0-2.0); RBC 4.1 Mil/uL (4.40-5.90); RED CELL DISTRIBUTION WIDTH 19.8 % (11.5-14.5); WHITE BLOOD COUNT 7.6 K/uL (4.8-10.8)
--- NOTE | 2018-10-19 08:36 | CP.PCM.PCO ---
Physician Communication Note - Physician Communication Note Physician Communication Note: Please see above
--- NOTE | 2018-10-19 09:33 | CP.PCM.PN ---
<Yehuda Cha - Last Filed: 10/20/18 07:56> Subjective - Date & Time of Evaluation Date of Evaluation: 10/20/18 Time of Evaluation: 07:56 - Subjective Subjective: Surgery Progress note. Dr. Lozada Patient seen and examined at bedside. No acute events overnight. Denies pain. Having stool output from colostomy. NPO for urology procedure. Denies any fevers/chills or N/V. He has been oob and ambulating. Objective - Vital Signs/Intake and Output Vital Signs (last 24 hours): Temp Pulse Resp BP Pulse Ox 98.3 F 94 H 20 130/79 95 10/19/18 08:27 10/19/18 08:27 10/19/18 08:27 10/19/18 08:27 10/19/18 08:27 Intake and Output: 10/19/18 10/19/18 06:59 18:59 Output Total 2012 -2012 - Medications Medications: Current Medications Amlodipine Besylate (Norvasc) 5 mg PO DAILY [facility] Last Admin: 10/18/18 09:16 Dose: 5 mg Artificial Tears (Artificial Tears) 1 ml OU BID [facility] Last Admin: 10/18/18 17:51 Dose: 1 drop Famotidine (Pepcid) 20 mg IVP Q12 [facility] Last Admin: 10/18/18 21:32 Dose: 20 mg Hydromorphone HCl (Dilaudid) 1 mg IVP Q3H PRN PRN Reason: Pain, severe (8-10) Last Admin: 10/19/18 06:23 Dose: 1 mg Meropenem 1 gm/ Sodium (Chloride) 100 mls @ 100 mls/hr IVPB Q8H [facility]; Protocol Last Admin: 10/19/18 05:52 Dose: 100 mls/hr BUPIVACAINE 0.125%/0.9% NACL (Bupivacaine-Ns 0.125% On-Q [employer]) 600 mls @ 4 mls/hr IJ ONCE ONE Stop: 10/19/18 15:59 Lactobacillus Acidophilus (Lactobacillus) 1 cap PO Q12H [facility] Last Admin: 10/19/18 01:48 Dose: 1 cap Lidocaine (Lidoderm) 1 ea TD DAILY [facility] Last Admin: 10/18/18 09:16 Dose: 1 ea - Labs Labs: 10/19/18 07:15 10/18/18 07:17 PT 15.0 SECONDS (9.7-12.2) H 10/11/18 19:35 INR 1.4 10/11/18 19:35 APTT 26.8 SECONDS (21-34) 10/11/18 19:35 - Additional Findings Additional findings: - Constitutional Appears: Well, Non-toxic, No Acute Distress - Head Exam Head Exam: ATRAUMATIC, NORMAL INSPECTION, NORMOCEPHALIC - Eye Exam Eye Exam: EOMI, Normal appearance. absent: Scleral icterus - ENT Exam ENT Exam: Mucous Membranes Moist - Respiratory Exam Respiratory Exam: NORMAL BREATHING PATTERN. absent: Accessory Muscle Use, Respiratory Distress - GI/Abdominal Exam GI & Abdominal Exam: Soft. absent: Distended, Firm, Guarding, Rigid, Rebound Additional comments: Incision clean and intact with kirk. colostomy pink with gas and stool in bag - Extremities Exam Extremities Exam: Normal Inspection. absent: Calf Tenderness - Neurological Exam Neurological Exam: Alert, Awake, Normal Gait, Oriented x3 - Psychiatric Exam Psychiatric exam: Normal Affect, Normal Mood - Skin Skin Exam: Dry, Intact, Normal Color, Warm Assessment and Plan - Assessment and Plan (Free Text) Assessment: 68 M s/p ex lap and Alyse's procedure for a nearly obstructing colon mass and colovesicular fistula POD#8 Plan: - Regular diet after procedure - f/u Urology procedure - IV Abx - Davin to self suction - Pain control - Monitor ostomy for bowel function - Encourage OOBTC and Ambulation - Continue PT - Further recs as per Dr. Kierra Cha PGY2 <Otilio Lozada B - Last Filed: 10/21/18 20:29> Objective - Vital Signs/Intake and Output Vital Signs (last 24 hours): Temp Pulse Resp BP Pulse Ox 98.2 F 100 H 20 125/82 100 10/20/18 15:00 10/20/18 15:00 10/20/18 15:00 10/20/18 15:00 10/20/18 15:00 - Labs Labs: 10/20/18 06:31 10/20/18 06:31 PT 15.0 SECONDS (9.7-12.2) H 10/11/18 19:35 INR 1.4 10/11/18 19:35 APTT 26.8 SECONDS (21-34) 10/11/18 19:35 Attending/Attestation - Attestation I have personally seen and examined this patient.: Yes I have fully participated in the care of the patient.: Yes I have reviewed all pertinent clinical information, including history, physical exam and plan: Yes Notes (Text): Pt was seen and examine at bedside Agree with above note and assessment Pt is stable clinically Stent removal tomorrow NPO, IVF IV antibiotics c.w current mx Plan d.w pt in detail. .
[2018-10-19 09:57] LABS: ALB/GLOB RATIO 0.8 (1.0-2.1); ALBUMIN 2.7 g/dL (3.5-5.0); ALT/SGPT 62 U/L (21-72); AST/SGOT 45 U/L (17-59); BLOOD UREA NITROGEN 14 mg/dL (9-20); CALCIUM 8.6 mg/dl (8.6-10.4); GFR NON-AFRICAN AMERICAN > 60
[2018-10-19] MEDS: Aritificial Tears (15ml) OU SCH ×2 (10:36→18:24)
[2018-10-19] MEDS: Lidocaine 5% Patch TD SCH (10:37)
[2018-10-19] MEDS ORDERED: cefTRIAXone 1 gm 0 GM/0 ML BAG IVPB ONE (13:13)
[2018-10-19] MEDS ORDERED: Iohexol 240 200 ML ONE (13:14)
[2018-10-19] MEDS ORDERED: Propofol 10 mg/ml Inj (20 ML) ONE (13:23)
[2018-10-19] MEDS ORDERED: HYDROmorphone 0.5 mg/0.5 ml ISec IVP PRN (14:09)
[2018-10-19] MEDS ORDERED: Lactated Ringer's 1,000 ML IV SCH (14:15)
--- NOTE | 2018-10-19 14:57 | CP.PCM.PN ---
<Joel Ross - Last Filed: 10/19/18 15:04> Subjective - Date & Time of Evaluation Date of Evaluation: 10/19/18 Time of Evaluation: 14:59 - Subjective Subjective: PGY-[address] Francheska Keith Patient seen and examined at bedside. No acute events overnight. Patient still c/o abdominal pain, notes he has not been asking for his Dilaudid at every prn dose. Patient advised that he does not have to take his pain medication, but if he is in pain then it is available for him. To go for stent removal today with Dr. Charles. Watters, colostomy in place. Patient denies fevers, chills, headahce, n/v, chest pain, fatigue. Objective - Vital Signs/Intake and Output Vital Signs (last 24 hours): Temp Pulse Resp BP Pulse Ox 98.3 F 94 H 20 130/79 95 10/19/18 08:27 10/19/18 08:27 10/19/18 08:27 10/19/18 08:27 10/19/18 08:27 Intake and Output: 10/19/18 10/19/18 06:59 18:59 Intake Total 200 Output Total 2012 850 Balance -2012196 - Medications Medications: Current Medications Amlodipine Besylate (Norvasc) 5 mg PO DAILY [facility] Last Admin: 10/19/18 10:39 Dose: 5 mg Artificial Tears (Artificial Tears) 1 ml OU BID [facility] Last Admin: 10/19/18 10:36 Dose: 1 drop Famotidine (Pepcid) 20 mg IVP Q12 [facility] Last Admin: 10/19/18 10:38 Dose: 20 mg Hydromorphone HCl (Dilaudid) 1 mg IVP Q3H PRN PRN Reason: Pain, severe (8-10) Last Admin: 10/19/18 10:34 Dose: 1 mg Hydromorphone HCl (Dilaudid) 0.25 mg IVP Q10M PRN PRN Reason: Pain, moderate (4-7) Stop: 10/19/18 16:09 Meropenem 1 gm/ Sodium (Chloride) 100 mls @ 100 mls/hr IVPB Q8H [facility]; Protocol Last Admin: 10/19/18 12:25 Dose: Not Given BUPIVACAINE 0.125%/0.9% NACL (Bupivacaine-Ns 0.125% On-Q Hotbed Lever Operator) 600 mls @ 4 mls/hr IJ ONCE ONE Stop: 10/19/18 15:59 Lactated Ringer's (Lactated Ringer's) 1,000 mls @ 100 mls/hr IV .Q10H [facility] Lactobacillus Acidophilus (Lactobacillus) 1 cap PO Q12H [facility] Last Admin: 10/19/18 12:30 Dose: Not Given Lidocaine (Lidoderm) 1 ea TD DAILY [facility] Last Admin: 10/19/18 10:37 Dose: 1 ea Ondansetron HCl (Zofran Inj) 4 mg IVP ONCE PRN PRN Reason: Nausea/Vomiting Stop: 10/19/18 16:09 - Labs Labs: 10/19/18 07:15 10/19/18 07:15 PT 15.0 SECONDS (9.7-12.2) H 10/11/18 19:35 INR 1.4 10/11/18 19:35 APTT 26.8 SECONDS (21-34) 10/11/18 19:35 - Constitutional Appears: Non-toxic, No Acute Distress - Head Exam Head Exam: ATRAUMATIC, NORMOCEPHALIC - Eye Exam Eye Exam: EOMI - ENT Exam ENT Exam: Mucous Membranes Moist - Respiratory Exam Respiratory Exam: Clear to Ausculation Bilateral, NORMAL BREATHING PATTERN. absent: Rales, Rhonchi, Wheezes - Cardiovascular Exam Cardiovascular Exam: REGULAR RHYTHM, +S1, +S2 - GI/Abdominal Exam GI & Abdominal Exam: Tenderness Additional comments: Midline vertical surgical incision with kirk in place. Ostomy draining blood and stool. - Exam Additional comments: Watters in place draining dark yellow urine. - Extremities Exam Extremities Exam: Normal Inspection. absent: Pedal Edema, Tenderness - Neurological Exam Neurological Exam: Alert, Awake, Oriented x3 - Psychiatric Exam Psychiatric exam: Normal Affect, Normal Mood - Skin Skin Exam: Dry, Intact Assessment and Plan - Assessment and Plan (Free Text) Assessment: 68 yo male with no known PMhx presented to the ED with c/o abdominal pain, diarrhea, urinary frequency and urgency, and foul-smelling urine, was found to have complex sigmoid mass with colovesicular fistula now POD#7 s/p laparotomy with rectosigmoid mass resection with colostomy. Plan: Sigmoid mass with colovesicular fistula, chronic -CT A/P w/IV and PO contrast 10/08: 11 x 8 x 6 mm complex cystic mass in sigmoid colon compatible with malignancy, demonstrating solid and cystic chronic components. Associated invasion of the urinary bladder with suspicion for a co lovesicular fistula. 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 Dysuria, hematuria 2/2 fistula, acute -Urology consulted, Dr. Jabari Charles, recs appreciated -U/a positive for UTI, urine cx negative -Testicular U/s done due to pt c/o testicular pain on day of admission, denies pain in area currently -Testicular U/s: Mild heterogeneity to the L testicular echotexture without any definitive focal mass identified. This echotexture and depicted images with flow show the L testicule having less anterior 1/2 vascular flow compared to the R testicle per sagittal images. The close clinical significance of this ap pearance, if any - is unclear. L epididymal head cysts. -OR today with Dr. Charles for cystoscopy and removal of stents placed 10/11/18 - f/u Leukocytosis, resolved -Blood cultures NG x 5 days -Urine cultures no growth -Stool studies (stool leukocytes, fecal occult, cultures) negative -Procal neg -Abdominal fluid cultures growing klebsiella -Merrem as per ID recs Iron deficiency anemia, Elevated INR, chronic -Pepcid 20 mg IVP bid -Was transfused 2 FFP and 1 unit PRBC for procedure -Dr. Lizarraga consulted, Heme/Onc; recommends transfuse prn, would benefit from IV Venofer 200 mg IVPB x 3 doses -IV Ferrlecit x 3 doses Hypokalemia, acute -Resolved this am, monitor and replete prn Pulmonary nodule, chronic -CXR 10/09: No acute findings identified. 6 mm probable calcified nodule, left mid lung zone. 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 However pt currently uninsured, does not quality for Medicaid, will need PT clearance prior to d/c. Pt to apply for [facility]. Dispo: Palliative consulted, follow-up recs. OR today with Dr. Charles for removal of stents and cystoscopy. F/u Heme/Onc recs. Assessment and plan d/w Dr. Francheska Ross <Leland Keith - Last Filed: 10/19/18 18:56> Objective - Vital Signs/Intake and Output Vital Signs (last 24 hours): Temp Pulse Resp BP Pulse Ox 98.1 F 92 H 18 145/84 93 L 10/19/18 16:00 10/19/18 16:00 10/19/18 16:00 10/19/18 16:00 10/19/18 16:00 Intake and Output: 10/19/18 10/19/18 06:59 18:59 Intake Total 600 Output Total 2012 Balance -2012250 - Medications Medications: Current Medications Amlodipine Besylate (Norvasc) 5 mg PO DAILY [facility] Last Admin: 10/19/18 10:39 Dose: 5 mg Artificial Tears (Artificial Tears) 1 ml OU BID [facility] Last Admin: 10/19/18 18:24 Dose: 1 drop Famotidine (Pepcid) 20 mg IVP Q12 [facility] Last Admin: 10/19/18 10:38 Dose: 20 mg Hydromorphone HCl (Dilaudid) 1 mg IVP Q3H PRN PRN Reason: Pain, severe (8-10) Last Admin: 10/19/18 10:34 Dose: 1 mg Meropenem 1 gm/ Sodium (Chloride) 100 mls @ 100 mls/hr IVPB Q8H [facility]; Protocol Last Admin: 10/19/18 12:25 Dose: Not Given Lactated Ringer's (Lactated Ringer's) 1,000 mls @ 100 mls/hr IV .Q10H [facility] Lactobacillus Acidophilus (Lactobacillus) 1 cap PO Q12H [facility] Last Admin: 10/19/18 12:30 Dose: Not Given Lidocaine (Lidoderm) 1 ea TD DAILY [facility] Last Admin: 10/19/18 10:37 Dose: 1 ea - Labs Labs: 10/19/18 07:15 10/19/18 07:15 PT 15.0 SECONDS (9.7-12.2) H 10/11/18 19:35 INR 1.4 10/11/18 19:35 APTT 26.8 SECONDS (21-34) 10/11/18 19:35 Attending/Attestation - Attestation I have personally seen and examined this patient.: Yes I have fully participated in the care of the patient.: Yes I have reviewed all pertinent clinical information, including history, physical exam and plan: Yes Notes (Text): 10/19/18 18:56 Care of this patient was gone over with resident Dr. Ross. Leland Keith D.O.
--- NOTE | 2018-10-19 15:18 | CP.PCM.PN ---
Subjective - Date & Time of Evaluation Date of Evaluation: 10/19/18 Time of Evaluation: 08:15 - Subjective Subjective: HEMONC FOLLOW UP NOTE Patient seen for follow up today. Feels well, recovering well post hemicolectomy Pain is well controlled and awaiting stent removal Discussed with Mr. Mack regarding his diagnosis and the need for chemotherapy given macroscopic perforation and invasion into adjacent structures. Objective - Vital Signs/Intake and Output Vital Signs (last 24 hours): Temp Pulse Resp BP Pulse Ox 97.2 F L 91 H 13 149/85 98 10/19/18 15:00 10/19/18 15:00 10/19/18 15:00 10/19/18 15:00 10/19/18 15:00 Intake and Output: 10/19/18 10/19/18 06:59 18:59 Intake Total 200 Output Total 2012 850 Balance -2012650 - Medications Medications: Current Medications Amlodipine Besylate (Norvasc) 5 mg PO DAILY [facility] Last Admin: 10/19/18 10:39 Dose: 5 mg Artificial Tears (Artificial Tears) 1 ml OU BID [facility] Last Admin: 10/19/18 10:36 Dose: 1 drop Famotidine (Pepcid) 20 mg IVP Q12 [facility] Last Admin: 10/19/18 10:38 Dose: 20 mg Hydromorphone HCl (Dilaudid) 1 mg IVP Q3H PRN PRN Reason: Pain, severe (8-10) Last Admin: 10/19/18 10:34 Dose: 1 mg Hydromorphone HCl (Dilaudid) 0.25 mg IVP Q10M PRN PRN Reason: Pain, moderate (4-7) Stop: 10/19/18 16:09 Meropenem 1 gm/ Sodium (Chloride) 100 mls @ 100 mls/hr IVPB Q8H [facility]; Protocol Last Admin: 10/19/18 12:25 Dose: Not Given BUPIVACAINE 0.125%/0.9% NACL (Bupivacaine-Ns 0.125% On-Q Lumber Carrier) 600 mls @ 4 mls/ hr IJ ONCE ONE Stop: 10/19/18 15:59 Lactated Ringer's (Lactated Ringer's) 1,000 mls @ 100 mls/hr IV .Q10H [facility] Lactobacillus Acidophilus (Lactobacillus) 1 cap PO Q12H [facility] Last Admin: 10/19/18 12:30 Dose: Not Given Lidocaine (Lidoderm) 1 ea TD DAILY [facility] Last Admin: 10/19/18 10:37 Dose: 1 ea Ondansetron HCl (Zofran Inj) 4 mg IVP ONCE PRN PRN Reason: Nausea/Vomiting Stop: 10/19/18 16:09 - Labs Labs: 10/19/18 07:15 10/19/18 07:15 PT 15.0 SECONDS (9.7-12.2) H 10/11/18 19:35 INR 1.4 10/11/18 19:35 APTT 26.8 SECONDS (21-34) 10/11/18 19:35 - Constitutional Appears: Well, Non-toxic, No Acute Distress - Head Exam Head Exam: ATRAUMATIC, NORMAL INSPECTION, NORMOCEPHALIC - Eye Exam Eye Exam: EOMI, Normal appearance Pupil Exam: NORMAL ACCOMODATION, PERRL - ENT Exam ENT Exam: Normal Exam - Neck Exam Neck Exam: Normal Inspection - Cardiovascular Exam Cardiovascular Exam: REGULAR RHYTHM, +S1, +S2 - GI/Abdominal Exam GI & Abdominal Exam: Soft, Normal Bowel Sounds Additional comments: colostomy site is clean and he is healing well - Rectal Exam Rectal Exam: Deferred - Extremities Exam Extremities Exam: Full ROM - Neurological Exam Neurological Exam: Alert, Awake, CN II-XII Intact, Oriented x3 - Skin Skin Exam: Dry, Intact, Normal Color Assessment and Plan - Assessment and Plan (Free Text) Assessment: 68 year old male patient with a sigmoid mass with invasion to the bladder with s/p hemicolectomy revealing no spread to lymph nodes. At this time he has a stage IIC colon ca and will require adjuvant chemotherapy given macroperforation. Plan Transfuse as clinically indicated Chemoport placement Adequate pain control Monitor CBC and CMP Arrange for [facility] care at [facility] Will arrange for chemotherapy to be started no later than 6 weeks post operatively. Will need 12 cycles of mFOLFOX Discussed chemotherapy with patient as well as side effect profile in full detail. Thank you for allowing me to partake in your patients care. Sincerely, Joe Lizarraga
--- NOTE | 2018-10-19 15:56 | RAD ---
Date of service: 10/19/2018 PROCEDURE: Intraoperative Fluoroscopy. HISTORY: STENT REMOVAL FINDINGS: Fluoroscopic assistance was provided for cystoscopy and stent removal. Please refer to the operative report from MARICARMEN Carmen DR, MD. Total fluoroscopic time (continuous mode) utilized during the procedure 7.6 seconds. Dose report: DLP [id number] (mGy/m2)
--- NOTE | 2018-10-19 18:13 | CP.PCM.PN ---
Subjective - Date & Time of Evaluation Date of Evaluation: 10/19/18 Time of Evaluation: 09:00 - Subjective Subjective: events noted tolerated stent removal afebrile seen by Heme Onc Objective - Vital Signs/Intake and Output Vital Signs (last 24 hours): Temp Pulse Resp BP Pulse Ox 98.1 F 92 H 18 145/84 93 L 10/19/18 16:00 10/19/18 16:00 10/19/18 16:00 10/19/18 16:00 10/19/18 16:00 Intake and Output: 10/19/18 10/19/18 06:59 18:59 Intake Total 600 Output Total 2012 Balance -2012250 - Medications Medications: Current Medications Amlodipine Besylate (Norvasc) 5 mg PO DAILY [facility] Last Admin: 10/19/18 10:39 Dose: 5 mg Artificial Tears (Artificial Tears) 1 ml OU BID [facility] Last Admin: 10/19/18 10:36 Dose: 1 drop Famotidine (Pepcid) 20 mg IVP Q12 [facility] Last Admin: 10/19/18 10:38 Dose: 20 mg Hydromorphone HCl (Dilaudid) 1 mg IVP Q3H PRN PRN Reason: Pain, severe (8-10) Last Admin: 10/19/18 10:34 Dose: 1 mg Meropenem 1 gm/ Sodium (Chloride) 100 mls @ 100 mls/hr IVPB Q8H [facility]; Protocol Last Admin: 10/19/18 12:25 Dose: Not Given Lactated Ringer's (Lactated Ringer's) 1,000 mls @ 100 mls/hr IV .Q10H [facility] Lactobacillus Acidophilus (Lactobacillus) 1 cap PO Q12H [facility] Last Admin: 10/19/18 12:30 Dose: Not Given Lidocaine (Lidoderm) 1 ea TD DAILY [facility] Last Admin: 10/19/18 10:37 Dose: 1 ea - Labs Labs: 10/19/18 07:15 10/19/18 07:15 PT 15.0 SECONDS (9.7-12.2) H 10/11/18 19:35 INR 1.4 10/11/18 19:35 APTT 26.8 SECONDS (21-34) 10/11/18 19:35 - Constitutional Appears: Non-toxic, Chronically Ill - Head Exam Head Exam: NORMOCEPHALIC (x) - Eye Exam Eye Exam: Scleral icterus Pupil Exam: NORMAL ACCOMODATION, PERRL - ENT Exam ENT Exam: Mucous Membranes Dry - Neck Exam Neck Exam: Full ROM, Normal Inspection. absent: Lymphadenopathy - Respiratory Exam Respiratory Exam: Clear to Ausculation Bilateral, NORMAL BREATHING PATTERN - Cardiovascular Exam Cardiovascular Exam: REGULAR RHYTHM, +S1, +S2. absent: Murmur - GI/Abdominal Exam GI & Abdominal Exam: Soft, Hypoactive Bowel Sounds. absent: Tenderness - Rectal Exam Rectal Exam: Deferred - Extremities Exam Extremities Exam: Full ROM, Normal Capillary Refill, Normal Inspection. 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
[2018-10-20] MEDS: Lactobacillus Acidophilus 500 MU Cap PO SCH ×2 (00:58→13:50)
[2018-10-20 01:48] VITALS: RESP 20
[2018-10-20] MEDS: Meropenem 1 GM in Sodium Chloride 0.9% 100 ML IVPB SCH ×2 (05:44→13:50)
[2018-10-20 06:57] LABS: ALB/GLOB RATIO 0.9 (1.0-2.1); ALBUMIN 3.1 g/dL (3.5-5.0); ALT/SGPT 50 U/L (21-72); AST/SGOT 57 U/L (17-59); BLOOD UREA NITROGEN 16 mg/dL (9-20); CALCIUM 8.4 mg/dl (8.6-10.4); GFR NON-AFRICAN AMERICAN > 60
--- NOTE | 2018-10-20 07:13 | CP.PCM.PN ---
Subjective - Date & Time of Evaluation Date of Evaluation: 10/20/18 Time of Evaluation: 07:07 - Subjective Subjective: Resident Progress Note for Hospitalist Service Objective - Vital Signs/Intake and Output Vital Signs (last 24 hours): Temp Pulse Resp BP Pulse Ox 98.7 F 96 H 20 139/87 98 10/19/18 23:40 10/19/18 23:40 10/19/18 23:40 10/19/18 23:40 10/19/18 23:40 Intake and Output: 10/20/18 10/20/18 06:59 18:59 Intake Total 460 Output Total 910 Balance -450 - Medications Medications: Current Medications Amlodipine Besylate (Norvasc) 5 mg PO DAILY [facility] Last Admin: 10/19/18 10:39 Dose: 5 mg Artificial Tears (Artificial Tears) 1 ml OU BID [facility] Last Admin: 10/19/18 18:24 Dose: 1 drop Famotidine (Pepcid) 20 mg IVP Q12 [facility] Last Admin: 10/19/18 21:48 Dose: 20 mg Hydromorphone HCl (Dilaudid) 1 mg IVP Q3H PRN PRN Reason: Pain, severe (8-10) Last Admin: 10/20/18 00:58 Dose: 1 mg Meropenem 1 gm/ Sodium (Chloride) 100 mls @ 100 mls/hr IVPB Q8H [facility]; Protocol Last Admin: 10/20/18 05:44 Dose: 100 mls/hr Lactated Ringer's (Lactated Ringer's) 1,000 mls @ 100 mls/hr IV .Q10H [facility] Lactobacillus Acidophilus (Lactobacillus) 1 cap PO Q12H [facility] Last Admin: 10/20/18 00:58 Dose: 1 cap Lidocaine (Lidoderm) 1 ea TD DAILY [facility] Last Admin: 10/19/18 10:37 Dose: 1 ea - Labs Labs: 10/19/18 07:15 10/20/18 06:31 PT 15.0 SECONDS (9.7-12.2) H 10/11/18 19:35 INR 1.4 10/11/18 19:35 APTT 26.8 SECONDS (21-34) 10/11/18 19:35 - Constitutional Appears: Non-toxic, No Acute Distress - Head Exam Head Exam: ATRAUMATIC, NORMOCEPHALIC - Eye Exam Eye Exam: EOMI - ENT Exam ENT Exam: Mucous Membranes Moist - Respiratory Exam Respiratory Exam: Clear to Ausculation Bilateral, NORMAL BREATHING PATTERN. absent: Rales, Rhonchi, Wheezes - Cardiovascular Exam Cardiovascular Exam: REGULAR RHYTHM, +S1, +S2 - GI/Abdominal Exam GI & Abdominal Exam: Tenderness Additional comments: Midline vertical surgical incision with kirk in place. Ostomy draining blood and stool. - Exam Additional comments: Watters in place draining dark yellow urine. - Extremities Exam Extremities Exam: Normal Inspection. absent: Pedal Edema, Tenderness - Neurological Exam Neurological Exam: Alert, Awake, Oriented x3 - Psychiatric Exam Psychiatric exam: Normal Affect, Normal Mood - Skin Skin Exam: Dry, Intact Assessment and Plan - Assessment and Plan (Free Text) Assessment: 68 yo male with no known PMhx presented to the ED with c/o abdominal pain, diarrhea, urinary frequency and urgency, and foul-smelling urine, was found to have complex sigmoid mass with colovesicular fistula now POD#7 s/p laparotomy with rectosigmoid mass resection with colostomy. Plan: Sigmoid mass with colovesicular fistula, chronic -CT A/P w/IV and PO contrast 10/08: 11 x 8 x 6 mm complex cystic mass in sigmoid colon compatible with malignancy, demonstrating solid and cystic chronic components. Associated invasion of the urinary bladder with suspicion for a colovesicular fistula. 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 Dysuria, hematuria 2/2 fistula, acute -Urology consulted, Dr. Jabari Charles, recs appreciated -U/a positive for UTI, urine cx negative -Testicular U/s done due to pt c/o testicular pain on day of admission, denies pain in area currently -Testicular U/s: Mild heterogeneity to the L testicular echotexture without any definitive focal mass identified. This echotexture and depicted images with flow show the L testicule having less anterior 1/2 vascular flow compared to the R testicle per sagittal images. The close clinical significance of this appearance, if any - is unclear. L epididymal head cysts. -OR today with Dr. Charles for cystoscopy and removal of stents placed 10/11/18 - f/u Leukocytosis, resolved -Blood cultures NG x 5 days -Urine cultures no growth -Stool studies (stool leukocytes, fecal occult, cultures) negative -Procal neg -Abdominal fluid cultures growing klebsiella -Merrem as per ID recs Iron deficiency anemia, Elevated INR, chronic -Pepcid 20 mg IVP bid -Was transfused 2 FFP and 1 unit PRBC for procedure -Dr. Lizarraga consulted, Heme/Onc; recommends transfuse prn, would benefit from IV Venofer 200 mg IVPB x 3 doses -IV Ferrlecit x 3 doses Hypokalemia, acute -Resolved this am, monitor and replete prn Pulmonary nodule, chronic -CXR 10/09: No acute findings identified. 6 mm probable calcified nodule, left mid lung zone. 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 However pt currently uninsured, does not quality for Medicaid, will need PT clearance prior to d/c. Pt to apply for [facility]. Ziggy Oliver PGY-1
[2018-10-20 07:28] LABS: BASO # 0.1 K/uL (0.0-0.2); BASO % 0.9 % (0.0-2.0); EOS # 0.3 K/uL (0.0-0.7); EOS % 3.6 % (0.0-4.0); HEMOGLOBIN 9.8 g/dL (12.0-18.0); LYMPH # 2.5 K/uL (1.0-4.3); LYMPH % 28.7 % (20.0-40.0); MEAN CELL VOLUME 74.6 fL (80.0-94.0); MEAN CORPUSCULAR HEMOGLOBIN 24.3 pg (27.0-31.0); MEAN CORPUSCULAR HGB CONC 32.6 g/dL (33.0-37.0); MEAN PLATELET VOLUME 8.1 fL (7.2-11.7); MONO % 11.6 % (0.0-10.0); NEUT # 4.8 K/uL (1.8-7.0); NEUT % 55.2 % (50.0-75.0); RBC 4.03 Mil/uL (4.40-5.90); RED CELL DISTRIBUTION WIDTH 19.5 % (11.5-14.5); WHITE BLOOD COUNT 8.7 K/uL (4.8-10.8)
--- NOTE | 2018-10-20 08:22 | CP.PCM.PN ---
<RuiHemal kovacs - Last Filed: 10/20/18 09:22> Subjective - Date & Time of Evaluation Date of Evaluation: 10/20/18 Time of Evaluation: 07:40 - Subjective Subjective: Surgery Progress note. Dr. Lozada Pt seen and examined at bedside. No acute events overnight. No N/V. Has been having regular ostomy function. Ureteral stents and moore removed by the Urology team yesterday and the patient has since been voiding. No new complaints. Objective - Vital Signs/Intake and Output Vital Signs (last 24 hours): Temp Pulse Resp BP Pulse Ox 98.4 F 93 H 20 137/87 98 10/20/18 07:00 10/20/18 07:00 10/20/18 07:00 10/20/18 07:00 10/20/18 07:00 Intake and Output: 10/20/18 10/20/18 06:59 18:59 Intake Total 460 Output Total 910 Balance -450 - Medications Medications: Current Medications Amlodipine Besylate (Norvasc) 5 mg PO DAILY [facility] Last Admin: 10/19/18 10:39 Dose: 5 mg Artificial Tears (Artificial Tears) 1 ml OU BID [facility] Last Admin: 10/19/18 18:24 Dose: 1 drop Famotidine (Pepcid) 20 mg IVP Q12 [facility] Last Admin: 10/19/18 21:48 Dose: 20 mg Hydromorphone HCl (Dilaudid) 1 mg IVP Q3H PRN PRN Reason: Pain, severe (8-10) Last Admin: 10/20/18 00:58 Dose: 1 mg Meropenem 1 gm/ Sodium (Chloride) 100 mls @ 100 mls/hr IVPB Q8H [facility]; Protocol Last Admin: 10/20/18 05:44 Dose: 100 mls/hr Lactated Ringer's (Lactated Ringer's) 1,000 mls @ 100 mls/hr IV .Q10H [facility] Lactobacillus Acidophilus (Lactobacillus) 1 cap PO Q12H [facility] Last Admin: 10/20/18 00:58 Dose: 1 cap Lidocaine (Lidoderm) 1 ea TD DAILY [facility] Last Admin: 10/19/18 10:37 Dose: 1 ea - Labs Labs: 10/20/18 06:31 10/20/18 06:31 PT 15.0 SECONDS (9.7-12.2) H 10/11/18 19:35 INR 1.4 10/11/18 19:35 APTT 26.8 SECONDS (21-34) 10/11/18 19:35 - Constitutional Appears: Well, Non-toxic, No Acute Distress - Head Exam Head Exam: ATRAUMATIC, NORMAL INSPECTION, NORMOCEPHALIC - Eye Exam Eye Exam: EOMI, Normal appearance. absent: Scleral icterus - ENT Exam ENT Exam: Mucous Membranes Moist - Respiratory Exam Respiratory Exam: NORMAL BREATHING PATTERN. absent: Accessory Muscle Use, Respiratory Distress - Cardiovascular Exam Cardiovascular Exam: absent: JVD - GI/Abdominal Exam GI & Abdominal Exam: Soft. absent: Distended, Firm, Guarding, Tenderness, Rebound Additional comments: Midline abdominal wound intact with kirk. Ostomy in place, pink and p roductive. - Extremities Exam Extremities Exam: Normal Inspection. absent: Calf Tenderness - Neurological Exam Neurological Exam: Alert, Awake, Oriented x3 - Psychiatric Exam Psychiatric exam: Normal Affect, Normal Mood - Skin Skin Exam: Dry, Intact, Normal Color, Warm Assessment and Plan - Assessment and Plan (Free Text) Assessment: 68 M s/p ex lap and Alyse's procedure for a nearly obstructing colon mass and colovesicular fistula POD#9 Plan: - Regular diet - Cleared for discharge home from surgery standpoint. - Davin to self suction. D/C home with Drain - Follow up with Dr. Lozada in office. Call for appointment - Pain control - Continue bowel regimen Further recs as per Dr. Kierra Fabian PGY2 Surgery <Otilio Lozada - Last Filed: 10/21/18 20:30> Objective - Vital Signs/Intake and Output Vital Signs (last 24 hours): Temp Pulse Resp BP Pulse Ox 98.2 F 100 H 20 125/82 100 10/20/18 15:00 10/20/18 15:00 10/20/18 15:00 10/20/18 15:00 10/20/18 15:00 - Labs Labs: 10/20/18 06:31 10/20/18 06:31 PT 15.0 SECONDS (9.7-12.2) H 10/11/18 19:35 INR 1.4 10/11/18 19:35 APTT 26.8 SECONDS (21-34) 10/11/18 19:35 Attending/Attestation - Attestation I have fully participated in the care of the patient.: Yes I have reviewed all pertinent clinical information, including history, physical exam and plan: Yes Notes (Text): Pt can be DC home with PO antibiotics Keep drain Colostomy care f.u in office as outpt c.w current mx Plan d.w primary team in detail.
[2018-10-20] MEDS: Aritificial Tears (15ml) OU SCH (09:25)
[2018-10-20] MEDS: Lidocaine 5% Patch TD SCH (09:26)
--- NOTE | 2018-10-20 13:28 | CP.PCM.PCO ---
Physician Communication Note - Physician Communication Note Physician Communication Note: Please see above
--- NOTE | 2018-10-20 14:14 | CP.PCM.PCO ---
Physician Communication Note - Physician Communication Note Physician Communication Note: Please see above
--- NOTE | 2018-10-20 14:54 | PCM.PCON ---
History of Present Illness - History of Present Illness History of Present Illness: Palliative Care consult requested by Dr. Francheska Keith Patient is a 68 year old male who had a recent diagnosis of abdominal mass. He presented to the ED on 10/09/18 for abdominal pain, watery diarrhea and unintentional weight loss x2 months. He also complained of abdominal cramping. He will follow up outpatient for treatment. Patient seen today on the 6th floor. He is not willing to participate much in conversations about his family or home situation. PMH: None known, Has not had PMD in 20 years Soc hx: Denies smoking, etoh, or alcohol use Fam hx: Unknown Review of Systems - Review of Systems Review of Systems: obtained from patient at the bedside - Constitutional Constitutional: Fatigue Physical Exam - Constitutional Appears: No Acute Distress, Chronically Ill - Head Exam Head Exam: ATRAUMATIC, NORMAL INSPECTION, NORMOCEPHALIC - Eye Exam Eye Exam: Normal appearance, PERRL - ENT Exam ENT Exam: Mucous Membranes Moist - Neck Exam Neck exam: Positive for: Normal Inspection - Respiratory Exam Respiratory Exam: Decreased Breath Sounds - Cardiovascular Exam Cardiovascular Exam: REGULAR RHYTHM - GI/Abdominal Exam GI & Abdominal Exam: Tenderness - Rectal Exam Rectal Exam: Deferred - Exam Additional comments: has urinal at the bedside - Extremities Exam Extremities exam: Positive for: pedal pulses present - Neurological Exam Neurological exam: Alert, Oriented x3 - Psychiatric Exam Psychiatric exam: Flat Affect - Skin Skin Exam: Dry, Pallor, Warm Palliative Care Assessment - Modified MRC Dyspnea Scale Modified MRC Dyspnea Scale: Short of Breath when hurrying or walking up a slight hill Grade: 2 - Pain Scale Pain Score: 0 Pain Scale Used: Numeric - [place] Scale Sensory Perception: No Impairment Moisture: Rarely Moist Activity: Walks Occasionally Mobility: Slightly Impaired Nutrition: Adequate Friction & Shear: No Apparent Problem Total Score - Skin Risk Assessment: 20 - Psychosocial Distress Patient screened for psychosocial distress: Yes Palliative Care - Goals Goal(s) of care: Goals of care discussion held with patient today. Patient states that he is still processing the information about his health that he has received over the last few weeks. Patient was given time to ask questions and verbalized understanding of the information given. Patient documented his wishes and named Prince Castro ([phone]) as surrogate decision maker on a POLST form. POLST form placed in chart original and copy Code Status: Full code at this time, patient states that if condition is terminal or irreversible, he does not want to kept alive on life support Treatment Goal(s): Alleviate symptoms, Improve ADLs, Improve quality of life End of life care discussed: Yes Assessment & Plan - Assessment and Plan (Free Text) Assessment: Impression Colonic Mass Colostomy Pain Decrease mobility needs Continued Goals of Care discussions Suggestion F/u outpatient for treatment Colostomy care Assess for pain q3h (IV pain meds available) Physical Therapy Will continue Goals of Care as needed Palliative Care will remain on board as needed Time Spent with patient 55 min
--- NOTE | 2018-10-20 15:31 | CP.PCM.DIS ---
Provider - Provider Date of Admission: 10/09/18 08:55 Attending physician: Leland Keith MD Primary care physician: none Consults: 10/09/18 13:35 General Surgery Consult Routine Comment: Consulting Provider: Otilio Lozada Consulting Physician: Otilio Lozada Reason for Consult: Sigmoid mass, colovesicular fistula Urology Consult Routine Comment: Consulting Provider: Danny Charles Consulting Physician: Danny Charles Reason for Consult: Colovesicular fistula 10/09/18 23:42 Hematology Oncology Consult Routine Comment: Consulting Provider: Joe Lizarraga Consulting Physician: Joe Lizarraga Reason for Consult: new chronic anemia, sigmoid mass, concern for malignancy 10/10/18 17:19 Pastoral Care Referral Routine Comment: Physician Instructions: Reason For Exam: colon cancer 10/12/18 08:33 Infectious Disease Consult Routine Comment: leukocytosis Consulting Provider: Deejay Zamudio Consulting Physician: Deejay Zamudio Reason for Consult: leukocytosis 10/12/18 12:20 Wound Care [Nursing Referral for Wound Care] Routine Comment: Physician Instructions: Reason For Exam: new colostomy 10/16/18 13:46 Palliative Care [Nursing Referral for Palliative Care] Routine Comment: Physician Instructions: Discuss Goals of Care Reason For Exam: Adenocarcinoma Colon 10/17/18 15:12 Wound Care [Nursing Referral for Wound Care] Routine Comment: Physician Instructions: Reason For Exam: ostomy care Time Spent in preparation of Discharge (in minutes): 35 Diagnosis - Discharge Diagnosis (1) Abdominal mass Status: Chronic (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 (3) Colostomy in place Status: Acute (4) Colovesical fistula Status: Acute Hospital Course - Lab Results Lab Results: Micro Results 10/09/18 08:30 Blood Blood Culture - Final NO GROWTH AFTER 5 DAYS 10/09/18 08:30 Blood Gram Stain - Final TEST NOT PERFORMED 10/09/18 08:33 Blood Blood Culture - Final NO GROWTH AFTER 5 DAYS 10/09/18 08:33 Blood Gram Stain - Final TEST NOT PERFORMED 10/11/18 16:48 Abdominal Fluid Gram Stain - Final 10/11/18 16:48 Abdominal Fluid Body Fluid Culture - Final Klebsiella Pneumoniae Ssp Pneu 10/11/18 16:48 Abdominal Fluid Gram Stain - Final 10/11/18 16:48 Abdominal Fluid Body Fluid Culture - Final Klebsiella Pneumoniae Ssp Pneu 10/10/18 00:14 Urine,Catheterized Urine Culture - Final No Growth (<1,000 CFU/ML) 10/09/18 16:26 Stool Stool Culture - Final NO SALMONELLA, SHIGELLA OR CAMPYLOBACTER ISOLATED. Most Recent Lab Values WBC 8.7 K/uL (4.8-10.8) 10/20/18 06:31 RBC 4.03 Mil/uL (4.40-5.90) L 10/20/18 06:31 Hgb 9.8 g/dL (12.0-18.0) L 10/20/18 06:31 Hct 30.1 % (35.0-51.0) L 10/20/18 06:31 MCV 74.6 fL (80.0-94.0) L 10/20/18 06:31 MCH 24.3 pg (27.0-31.0) L 10/20/18 06:31 MCHC 32.6 g/dL (33.0-37.0) L 10/20/18 06:31 RDW 19.5 % (11.5-14.5) H 10/20/18 06:31 Plt Count 655 K/uL (130-400) H D 10/20/18 06:31 MPV 8.1 fL (7.2-11.7) 10/20/18 06:31 Neut % (Auto) 55.2 % (50.0-75.0) 10/20/18 06:31 Lymph % (Auto) 28.7 % (20.0-40.0) 10/20/18 06:31 [place] % (Auto) 11.6 % (0.0-10.0) H 10/20/18 06:31 Eos % (Auto) 3.6 % (0.0-4.0) 10/20/18 06:31 Baso % (Auto) 0.9 % (0.0-2.0) 10/20/18 06:31 Neut # (Auto) 4.8 K/uL (1.8-7.0) 10/20/18 06:31 Lymph # (Auto) 2.5 K/uL (1.0-4.3) 10/20/18 06:31 [place] # (Auto) 1.0 K/uL (0.0-0.8) H 10/20/18 06:31 Eos # (Auto) 0.3 K/uL (0.0-0.7) 10/20/18 06:31 Baso # (Auto) 0.1 K/uL (0.0-0.2) 10/20/18 06:31 Retic Count 1.2 % (0.5-1.5) 10/09/18 13:19 PT 15.0 SECONDS (9.7-12.2) H 10/11/18 19:35 INR 1.4 10/11/18 19:35 APTT 26.8 SECONDS (21-34) 10/11/18 19:35 pO2 23 mm/Hg (30-55) L 10/09/18 08:50 VBG pH 7.36 (7.32-7.43) 10/09/18 08:50 VBG pCO2 50 mmHg (40-60) 10/09/18 08:50 VBG HCO3 24.8 mmol/L 10/09/18 08:50 VBG Total CO2 29.7 mmol/L (22-28) H 10/09/18 08:50 VBG O2 Sat (Calc) 24.1 % (40-65) L 10/09/18 08:50 VBG Base Excess 1.9 mmol/L (0.0-2.0) 10/09/18 08:50 VBG Potassium 3.2 mmol/L (3.6-5.2) L 10/09/18 08:50 Sodium 136.0 mmol/l (132-148) 10/09/18 08:50 Chloride 103.0 mmol/L (98-107) 10/09/18 08:50 Glucose 179 mg/dl (75-110) H 10/09/18 08:50 Lactate 1.8 mmol/L (0.7-2.1) 10/09/18 08:50 Sodium 134 mmol/L (132-148) 10/20/18 06:31 Potassium 4.3 mmol/L (3.6-5.2) 10/20/18 06:31 Chloride 97 mmol/L (98-107) L 10/20/18 06:31 Carbon Dioxide 31 mmol/L (22-30) H 10/20/18 06:31 Anion Gap 11 (10-20) 10/20/18 06:31 BUN 16 mg/dL (9-20) 10/20/18 06:31 Creatinine 0.9 mg/dL (0.8-1.5) 10/20/18 06:31 Est GFR ( Amer) > 60 10/20/18 06:31 Est GFR (Non-Af Amer) > 60 10/20/18 06:31 Random Glucose 98 mg/dL (75-110) 10/20/18 06:31 Calcium 8.4 mg/dl (8.6-10.4) L 10/20/18 06:31 Phosphorus 2.1 mg/dL (2.5-4.5) L 10/14/18 07:51 Magnesium 2.1 mg/dL (1.6-2.3) 10/14/18 07:51 Iron 18 ug/dL (49-181) L 10/09/18 14:01 TIBC 212 ug/dL (250-450) L 10/09/18 14:01 % Saturation 8 (20-55) L 10/09/18 14:01 Ferritin 34.8 ng/mL 10/09/18 14:01 Total Bilirubin 0.3 mg/dL (0.2-1.3) 10/20/18 06:31 AST 57 U/L (17-59) 10/20/18 06:31 ALT 50 U/L (21-72) 10/20/18 06:31 Alkaline Phosphatase 82 U/L (38-126) 10/20/18 06:31 Total Protein 6.7 g/dL (6.3-8.3) 10/20/18 06:31 Albumin 3.1 g/dL (3.5-5.0) L 10/20/18 06:31 Globulin 3.6 gm/dL (2.2-3.9) 10/20/18 06:31 Albumin/Globulin Ratio 0.9 (1.0-2.1) L 10/20/18 06:31 Carcinoembryonic Ag 3.0 ng/mL (0-3.0) 10/11/18 05:01 CA 19-9 Antigen < 1.4 U/mL (0-37) 10/11/18 05:01 Procalcitonin < 0.05 NG/ML (0.19-0.49) L 10/09/18 16:26 Free T4 1.72 ng/dL (0.78-2.19) 10/10/18 07:51 TSH 3rd Generation 1.73 mIU/L (0.46-4.68) 10/10/18 07:51 Venous Blood Potassium 3.2 mmol/L (3.6-5.2) L 10/09/18 08:50 Urine Color Yellow (YELLOW) 10/09/18 22:59 Urine Clarity Hazy (Clear) 10/09/18 22:59 Urine pH 6.0 (5.0-8.0) 10/09/18 22:59 Ur Specific Keller 1.014 (1.003-1.030) 10/09/18 22:59 Urine Protein 1+ mg/dL (NEGATIVE) H 10/09/18 22:59 Urine Glucose (UA) Normal mg/dL (Normal) 10/09/18 22:59 Urine Ketones Negative mg/dL (NEGATIVE) 10/09/18 22:59 Urine Blood 2+ (NEGATIVE) H 10/09/18 22:59 Urine Nitrate Negative (NEGATIVE) 10/09/18 22:59 Urine Bilirubin Negative (NEGATIVE) 10/09/18 22:59 Urine Urobilinogen Normal mg/dL (0.2-1.0) 10/09/18 22:59 Ur Leukocyte Esterase 2+ Yaneth/uL (Negative) H 10/09/18 22:59 Urine WBC (Auto) 228 /hpf (0-5) H 10/09/18 22:59 Urine RBC (Auto) 31 /hpf (0-3) H 10/09/18 22:59 Urine Bacteria Few (<OCC) H 10/09/18 22:59 Hyaline Casts 0-2 /lpf (0-2) 10/09/18 22:59 Stool Occult Blood Positive (NEGATIVE) H 10/09/18 16:29 Stool Leukocytes, Qual Negative (NEGATIVE) 10/09/18 16:26 Blood Type A POSITIVE 10/11/18 05:14 Antibody Screen Negative 10/11/18 05:14 - Hospital Course Hospital Course: On admission: Patient is a 68 year old male with no significan PMHx who presents with chief complaints of abdominal pain, diarrhea, and urinary frequency and urgency. Patient states symptoms first began about 6 months ago when he noticed abdominal pain and increasing frequency of watery diarrhea. During this time he has also noticed increased generalized weakness. Patient states he began to show concern 2 months ago when he began losing weight unexpectedly as well (unsure how much weight, just noticed visually). Patient also states he has had foul-smelling urine which is sometimes brown and sometimes with blood as well. Patient has had increased urinary urgency and frequency, as well as difficulty emptying his bladder, and states that he sometimes cannot make it to the bathroom on time. Patient denies blurry vision, focal weakness, dysuria, flank pain, numbness, or tingling. During hospital stay: CT abdomen and pelvis shows 11 x 8 x 6 mm complex cystic mass in sigmoid colon compatible with malignancy, demonstrating solid and cystic chronic components. Associated invasion of the urinary bladder with suspicion for a colovesicular fistula. Surgery, urology, hematology oncology were consulted. Patient underwent cystoscopy with stents placed for ureteral protection. These stents were subsequently removed before discharge from hospital. Flexible sigmoidoscopy on Oct 10 2018 tissue biopsy sample showed adenocarcinoma arising in an adenoma. CEA and CA 19-9 were within normal limits. Surgical pathology results from biopsy showed invasive colonic adenocarcinoma, moderately differentiated, tumor invades through the muscularis propria and the visceral peritoneum, no lymphovascular invasion is identified. Testicular ultrasound was done due to patient complaining of testicular pain on day of admission which showed mild heterogeneity to the L testicular echotexture without any definitive focal mass identified. This echotexture and depicted images with flow show the L testicule having less anterior 1/2 vascular flow compared to the R testicle per sagittal images. The close clinical significance of this appearance, if any - is unclear. L epididymal head cysts. Urinalysis was positive for UTI, urine culture is negative. Patient was noted to have leukocytosis on admission, which resolved over hospital stay. Blood cultures were negative, stool studies were negative. Procal were negative. Abdominal fluid cultures grew klebsiella, so patient was given Merrem as per infectious disease recs. Patient was also noted to have iron deficiency anemia, and so was transfused 2 FFP and 1 unit pRBCS for procedure. Hematology oncology recommended IV iron which patient received x3 doses. Patient was also noted to have a 6 mm probable calcified nodule, left mid lung zone on CXR. 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 Patient was advised to follow this up outpatient. Patient was set up with [facility] prior to discharge. As per hematology oncology recommendations patient will need 12 cycles of folfox. Patient was set up for same day surgery for portacath placement with Dr. Suh. Please see EMR for full summary. Discharge Exam - Additional Findings Additional findings: - Constitutional Appears: Non-toxic, No Acute Distress - Head Exam Head Exam: ATRAUMATIC, NORMOCEPHALIC - Eye Exam Eye Exam: EOMI - ENT Exam ENT Exam: Mucous Membranes Moist - Respiratory Exam Respiratory Exam: Clear to Auscultation Bilateral, NORMAL BREATHING PATTERN. absent: Rales, Rhonchi, Wheezes - Cardiovascular Exam Cardiovascular Exam: REGULAR RHYTHM, +S1, +S2 - GI/Abdominal Exam GI & Abdominal Exam: Tenderness Additional comments: Midline vertical surgical incision with kirk in place. Ostomy draining stool. Drain in place. - Extremities Exam Extremities Exam: Normal Inspection. absent: Pedal Edema, Tenderness - Neurological Exam Neurological Exam: Alert, Awake, Oriented x3 - Psychiatric Exam Psychiatric exam: Normal Affect, Normal Mood - Skin Skin Exam: Dry, Intact, Warm Discharge Plan - Discharge Medications Prescriptions: amLODIPine [Norvasc] 5 mg PO DAILY #30 tab Ciprofloxacin [Cipro] 1 tab PO BID #14 tab Famotidine [Pepcid] 20 mg PO BID #60 tab Lactobacillus Acidophilus [Lactobacillus] 1 cap PO Q12H #74 cap oxyCODONE/Acetaminophen [Percocet 5/325 mg Tab] 1 ea PO Q8H PRN #15 tab PRN Reason: Pain, Severe (8-10) - Follow Up Plan Condition: STABLE Disposition: HOME/ ROUTINE Patient education suggested?: Yes Instructions: Ciprofloxacin (Systemic), How to Care for Your Ostomy, Adult, Colon and Rectal Cancer (DC), Amlodipine, Lactobacillus, Oxycodone and Acetaminophen, Colostomy Care, Urinary Tract Infection in Men (DC) Additional Instructions: 1). You are scheduled for chemotherapy port placement this coming Tuesday10/23/18 here at [facility] Day Surgery at 11:00. Please arrive at the main lobby of [facility] ([address] [place] [address]) by 9:30 AM and the manager security will direct you where to go. PLEASE DO NOT EAT OR DRINK ANYTHING AFTER MIDNIGHT on Tuesday10/22/18 or the morning of Tuesday10/23/18. 2). Make sure to call the office of Surgeon Dr. Otilio Suh at [phone] to schedule an appointment to take place towards the end of next week to have your surgical kirk removed and for removal of your abdominal drain on the right. After you complete 12 rounds of Chemotherapy, you will need to have surgery scheduled as instructed by Dr. Suh. 3). Please schedule an appointment with Cancer Specialist Dr. Joe Lizarraga at [phone] in the next 10 to 14 days . His office is located at [address] [place] [address]. He will notify you when you can start Chemotherapy at [facility] located on 3rd floor. 4). In order to help you coordinate your care between the Surgeon Dr. Suh and Cancer Specialist Dr. Lizarraga, you will need a primary care doctor. Therefore please schedule follow up with the [facility] which is clinic at [facility] located on Floor B. Please call [phone] to schedule an appointment with this clinic to take place in the next 7 days. 5). You were provided with the following prescriptions which you will need to have filled at your pharmacy on your way home from the hospital. Please use them as directed: Norvasc 5 mg, 1 tablet by mouth once a day at 8 AM, Dispense #30 Ciprofloxacin 500 mg, 1 tablet by mouth twice a day at 8 AM and 8 PM until finished, Dispense #14 Lactobacillus, 1 capsule by mouth twice a day at 10 AM and 6 PM until finished, Dispense #74 Pepcid 20 mg, 1 tablet by mouth twice a day at 8 AM and 8 PM, Dispense #60 Percocet 5/325 mg, 1 tablet by mouth every 8 hours ONLY IF NEEDED for severe pain, Dispense #15 (Fifteen) 6). If you do NOT move your bowels for 2 days, please drink 8 ounce of prune juice daily until you have a bowel movement. 7). Only use the pain medication Percocet only IF ABSOLUTELY NECESSARY as this medication can cause addiction. 8). Please do NOT lift anything heavy and be careful going up and down stairs. 9). Please follow the above instructions. Failure to do so will cause serious harm to your health. 10). I know that this a lot for you to deal with. However, the doctors mentioned above and the doctors at the clinic are good people that will help you to coordinate your care. Please be well and take care. 11) A visiting skilled nurse from [facility] will make 1-2 visits free of charge to check on you and make sure you're using your colostomy bag properly. Melvin MonetO. Referrals: [facility] at [facility] [Outside] Otilio Lozada MD [Staff Provider] - Joe Lizarraga MD [Medical Doctor] -
[2018-10-20 16:23] VITALS: BP 125/82; PULSE 100; TEMP 98.2; O2SAT 100
== END 2018-10-20 19:45 | disposition home or self-care (01) | DRG 221 ==
LOC: C.ER 07:51 → C.9E 08:55 → C.3T 13:57 → C.6T 10-11 21:30
PROVIDERS: ADMIT Hospitalist; ATTEND Family Medicine
PROC: 0DBN8ZX Excision of Sigmoid Colon, Via Natural or Artificial Opening Endoscopic, Diagnostic (ICD-10-PCS; 2018-10-10)
PROC: 0DTN0ZZ Resection of Sigmoid Colon, Open Approach (ICD-10-PCS; 2018-10-11)
PROC: 0T9B80Z Drainage of Bladder with Drainage Device, Via Natural or Artificial Opening Endoscopic (ICD-10-PCS; 2018-10-11)
PROC: 0DTP0ZZ Resection of Rectum, Open Approach (ICD-10-PCS; 2018-10-11)
PROC: 0DQU0ZZ Repair Omentum, Open Approach (ICD-10-PCS; 2018-10-11)
PROC: 0DNW0ZZ Release Peritoneum, Open Approach (ICD-10-PCS; 2018-10-11)
PROC: BT141ZZ Fluoroscopy of Kidneys, Ureters and Bladder using Low Osmolar Contrast (ICD-10-PCS; principal; 2018-10-11 07:15)
PROC: 0TPB80Z Removal of Drainage Device from Bladder, Via Natural or Artificial Opening Endoscopic (ICD-10-PCS; 2018-10-19)
DX: C18.7 Malignant neoplasm of sigmoid colon (principal); K65.9 Peritonitis, unspecified; L02.211 Cutaneous abscess of abdominal wall; N32.1 Vesicointestinal fistula; E87.6 Hypokalemia; D50.0 Iron deficiency anemia secondary to blood loss (chronic); K66.0 Peritoneal adhesions (postprocedural) (postinfection); N39.0 Urinary tract infection, site not specified; N50.819 Testicular pain, unspecified; R32 Unspecified urinary incontinence; K57.30 Diverticulosis of large intestine without perforation or abscess without bleeding; K64.8 Other hemorrhoids; B96.1 Klebsiella pneumoniae [K. pneumoniae] as the cause of diseases classified elsewhere